=== PATIENT | female | born 1960 | race Caucasian/White ===

== ENCOUNTER 2020-09-10 09:22 | Outpatient (REF) | payer OTHER, SELFPAY ==
--- NOTE | 2020-09-10 09:27 | MM_ITS ---
EXAMINATION: MM SCREENING DIGITAL BREAST TOMOSYNTHESIS, BILATERAL CLINICAL INFORMATION: Screening. Asymptomatic. The lifetime risk of breast cancer based on the Tyrer-Cuzick Model is 7%. COMPARISON: Mammography: 07/08/2019, 06/22/2018 TECHNIQUE: Digital breast tomosynthesis is performed in both the craniocaudal and mediolateral oblique views along with computer-aided detection (CAD). Synthesized 2D images are generated from the tomosynthesis. Additional bilateral exaggerated CC views and bilateral additional MLO views are provided. FINDINGS: The breasts are heterogeneously dense, which may obscure small masses (ACR BI-RADS breast composition Category c). Parenchymal pattern is similar to prior studies. There is no interval mass or architectural abnormality. There are numerous bilateral calcifications demonstrated, greater in number on left, similar to prior exams. The axilla and skin contours are unremarkable. No significant changes. MM/MM tomosynthesis screening BI IMPRESSION: No significant changes from prior studies. ASSESSMENT: BI-RADS 2: Benign RECOMMENDATION: Routine annual mammography screening. This patient's information was entered into a reminder system with a target due date for their next mammogram.
== END 2020-09-10 09:23 | disposition home or self-care (01) ==
LOC: HO.MAMMO 09:22
PROVIDERS: Visit Provider Internal Medicine
DX: Z12.31 Encounter for screening mammogram for malignant neoplasm of breast (principal)
CPT/HCPCS: 77063; 77067

== ENCOUNTER 2020-11-08 07:57 | Inpatient (IN) | payer MEDICARE, OTHER, SELFPAY ==
[2020-11-08] VITALS (19 sets, daily range): BP systolic 91–142; BP diastolic 52–88; PULSE 86–177; RESP 18–22; TEMP 36–36.8; O2SAT 86–94; BMI 21.3
--- NOTE | 2020-11-08 | ECG_ITS ---
Test Reason : rhythm check Blood Pressure : / mmHG Vent. Rate : 160 BPM Atrial Rate : 160 BPM P-R Int : 088 ms QRS Dur : 164 ms QT Int : 316 ms P-R-T Axes : 000 262 208 degrees QTc Int : 515 ms Atrial flutter with 2 to 1 block Non-specific intra-ventricular conduction block Lateral infarct , age undetermined Abnormal ECG When compared to the previous EKG of Atrial flutter with 2 to 1 block has replaced Normal sinus rhythm Referred By: Stepan Mills Electronically Signed By:DAMARIS LIU MD
--- NOTE | ~2020-11-08 | CT_ITS ---
EXAMINATION: CT CHEST WITHOUT CONTRAST CLINICAL INFORMATION: Shortness of breath and cough COMPARISON: Chest CT 8 10/15/2018, chest radiograph 11/09/2020 TECHNIQUE: Multidetector volumetric CT imaging of the chest was done. Axial MIP volume rendering provided. Sagittal and coronal reformatted images were obtained. This CT examination was performed using dose optimization techniques as appropriate, variously including the following: *Automated exposure control *Adjustment of mA and/or kV according to patient size (this includes techniques or standardized protocols for targeted exams where dose is matched to indication/reason for exam; i.e. extremities or head) *Use of iterative reconstruction technique DLP: 140.4 mGy-cm FINDINGS: LUNGS: Upper lobe predominant emphysematous changes of the lungs are again noted with regions of parenchymal distortion which are similar to the prior.. There is circumferential thickening of the medium-sized airways and multiple foci of airways impaction predominantly within the lower lobes associated with regions of volume loss and opacity which most consistent with atelectasis, left greater than right. There are small bilateral pleural effusions, right greater than left. There are additional scattered peripheral somewhat irregular parenchymal opacities which are most suggestive of additional more distal regions of airways impaction/inflammation. MEDIASTINUM: The heart is not enlarged. There is no pericardial effusion or pericardial thickening. The great vessels are nondilated. There are subcentimeter lymph nodes at several mediastinal stations, none enlarged by size criteria. PLEURA: Small bilateral pleural effusions, right greater than left. AXILLA: No lymphadenopathy. UPPER ABDOMEN: The incompletely visualized upper abdomen is unremarkable for any significant abnormality. OSSEOUS STRUCTURES: Subtle compression deformity of the superior endplate of L1 is unchanged from the prior study. There is a minimal pectus excavatum deformity. There is no acute bony abnormality. CT/CT chest wo con IMPRESSION: Bilateral airways thickening with regions of airways impaction, volume loss and opacity which are most suggestive of atelectasis secondary to an airways inflammatory process. There are small bilateral pleural effusions, right greater than left. These findings are superimposed on a background of severe emphysematous changes of the lungs
--- NOTE | ~2020-11-08 | XR_ITS ---
EXAMINATION: XR CHEST CLINICAL INFORMATION: Shortness of breath. COMPARISON: 11/08/2020 TECHNIQUE: Frontal view of the chest was obtained. FINDINGS: Cardiac leads overlie the chest. Diffuse coarsened interstitial opacities are again seen in both lungs, more pronounced at the bases, potentially doing part to emphysema. Trace left pleural effusion. Bibasilar airspace opacities appear unchanged as compared to prior. No pneumothorax. Cardiac and mediastinal contours are unchanged and within normal limits. Lungs remain hyperexpanded. No acute osseous findings. XR/XR chest 1V IMPRESSION: Hyperexpanded, emphysematous lungs with unchanged linear bibasilar opacities that may correspond atelectasis or consolidation. Unchanged trace left pleural effusion.
--- NOTE | ~2020-11-08 | XR_ITS ---
EXAMINATION: XR CHEST CLINICAL INFORMATION: SOB COMPARISON: Chest 10/16/2018 TECHNIQUE: Frontal view of the chest was obtained. FINDINGS: The lungs are hyperinflated with diffuse reticular interstitial patchy opacities throughout both lungs most prominent in the right lower lobe. The heart size and pulmonary vascularity is normal. There is no gross bony abnormality seen. XR/XR chest 1V IMPRESSION: Diffuse increased echo interstitial changes and prominent patchy opacity right lower lobe suggestive of interstitial pneumonitis and likely right lower lobe infiltrate/atelectasis.
--- NOTE | 2020-11-08 08:08 | ECG_ITS ---
Test Reason : SOB Blood Pressure : / mmHG Vent. Rate : 089 BPM Atrial Rate : 089 BPM P-R Int : 136 ms QRS Dur : 094 ms QT Int : 366 ms P-R-T Axes : 079 261 048 degrees QTc Int : 445 ms Sinus rhythm with occasional Premature ventricular complexes Biatrial enlargement Incomplete right bundle branch block Right ventricular hypertrophy with repolarization abnormality Inferior infarct (cited on or before 17-APR-2005) Anterolateral infarct (cited on or before 06-APR-2004) Abnormal ECG When compared with ECG of 20-OCT-2018 08:19, No significant change was found Referred By: Flor Starr Electronically Signed By:DAMARIS LIU MD
[2020-11-08] MEDS: Albuterol Sulfate (0.083%) 2.5 MG/3 ML VIAL.NEB INHALE (08:12)
[2020-11-08] MEDS: Albuterol/Iprat 2.5/0.5MG 3 ML AMPUL.NEB INHALE ×3 (08:12→15:00)
--- NOTE | 2020-11-08 08:15 | ED_ITS ---
HPI - URI/Sore Throat General Chief Complaint: Upper Respiratory Symptoms Stated Complaint: DIFF BREATH,O2SAT 88%3LPM,NO COVID CONCERN PER EMS Time Seen by Provider: 11/08/20 08:08 Source: patient and EMS Mode of arrival: EMS Limitations: no limitations History of Present Illness HPI Narrative: 60-year-old female with history of COPD patient use 2 L of oxygen at nighttime, patient presented with worsening of difficulty breathing for the past 2 days with a history of COPD, no fever, no chills, no history of exposing to sick contact. Patient found by EMS having auto set of 70% on the room air at home, patient was given oxygen and reported improvement for symptoms with oxygen, coughing with yellow sputum. Related Data Previous Rx's Medication Instructions Recorded diltiazem HCl 120 mg 120 mg PO BID 90 Days #180 cap 06/07/20 capsule,extended release 12 hr baclofen 20 mg tablet 20 mg PO BID #180 tab 06/11/20 divalproex 250 mg tablet,delayed 250 mg PO BID #180 tab 09/30/20 release Allergies Allergy/AdvReac Type Severity Reaction Status Date / Time No Known Allergies Allergy Unverified 05/13/20 15:23 Review of Systems Review of Systems: All other systems are reviewed and are negative Constitutional: Reports as per HPI and Reports no additional constitutional complaints Eyes: Reports as per HPI and Reports no additional eye complaints Reports system reviewed and no additional complaints, except as documented Cardiovascular: Reports as per HPI and Reports no additional cardiovascular complaints Respiratory: Reports as per HPI and Reports no additional respiratory complaints Gastrointestinal: Reports as per HPI and Reports no additional gastrointestinal complaints Genitourinary: Reports no additional female genitourinary complaints Musculoskeletal: Reports no additional musculoskeletal complaints Skin/Breast: Reports system reviewed and no additional complaints, except as docu Psychiatric: Reports no additional psychiatric complaints Endocrine: Reports no additional endocrine complaints Hematologic/Lymphatic: Reports no additional hematologic/lymphatic complaints Allergic/Immunologic: Reports no additional allergic/immunologic complaints Reports system reviewed and no additional complaints, except as documented and Reports Abnormal speech present [facility] Social History Social History Alcohol intake: former Smoking Status: Former smoker Use of substances other than those prescribed or required for medical reasons: No Advance Directives: Yes Advance Directives Information Provided: Yes Advance Directives on File: No Physical Exam Vital Signs: Vital Signs: Last Vital Signs Pulse 86 11/08/20 08:13 Resp 22 H 11/08/20 08:03 BP 121/68 11/08/20 08:03 Pulse Ox 92 11/08/20 09:28 Body Mass Index 21.3 Vital signs have been reviewed as appeared to be correct. Blood pressure normal. Heart rate normal. Respiration rate normal. Temperature normal. Oxygen saturation normal. Appearance: Alert. Oriented X3. No acute distress. Head: Normal external exam. Normocephalic. Atraumatic. No Parra signs noted. No raccoon eyes noted Eyes: PERRLA. EOMI. Conjunctiva and sclera normal. Eyelids normal. ENT: TM's Normal. Pharynx normal. Uvula midline. Moist mucous membranes. No trismus noted. No drooling noted. No muffled voice noted. Neck: Normal inspection. Neck supple. FROM. No adenopathy. Thyroid Normal. No meningeal signs. No neck mass noted. CVS: Normal heart rate and rhythm. Heart sound normal. No murmurs noted. Pulses normal throughout. Respiratory: No respiratory distress. Painless inspiration. Breath sounds slightly diminished bilaterally. Diffuse mild expiratory wheezing, no rhonchi noted. Chest nontender. No accessory muscle usage noted or decreased air movement noted. Abdomen: Soft and nontender. Bowel sounds normal in all 4 quadrants. No distention noted. No organomegaly noted. No visible injury noted. Back: No CVA tenderness. Full range of motion noted. Skin: Skin warm and dry. Normal skin color. Normal skin turgor. No rashes/lesions/lacerations noted. Extremities: No lower extremity edema. Extremities exhibit normal range of motion. Extremities nontender. Neuro: Oriented X 3. No motor deficit. No sensory deficit. Reflexes normal. Course Course Course Narrative: Assessment and plan. 60-year-old female history of COPD use supplemental oxygen a home presented with hypoxia and 2 days of dyspnea with you will productive sputum. Patient in the emergency department meet criteria for SIRS and hypoxic without using oxygen patient also found to have right lobe pneumonia will admit for further IV antibiotic. MDM - URI/Sore Throat Lab Data Attestation: I reviewed the patient's lab results. Result diagrams: 11/08/20 08:13 11/08/20 08:13 Labs: Lab Results 11/08/20 11/08/20 11/08/20 Range/Units 08:12 08:13 08:13 WBC 17.8 H (4.8-10.8) X10*3/uL RBC 4.78 (4.20-5.50) X10*6/uL Hgb 15.0 (12.0-16.0) g/dl Hct 45.8 (37-47) % MCV 95.8 (80-98) fL MCH 31.4 (27.0-33.0) pg MCHC 32.8 (31.0-35.0) g/dl RDW 11.9 (11.0-16.0) % Plt Count 374 (160-400) X10*3/uL MPV 10.3 (9.4-12.3) fL Immature Gran % (Auto) 1.0 H (0.0-0.4) % Neut % (Auto) 76.2 H (45-73) % Lymph % (Auto) 8.8 L (20-40) % [place] % (Auto) 13.6 H (2-11) % Eos % (Auto) 0.0 (0-4) % Baso % (Auto) 0.4 (0-2) % Lymph # (Auto) 1.6 (1.2-4.9) X10*3/uL [place] # (Auto) 2.4 H (0.1-1.2) X10*3/uL Eos # (Auto) 0.0 (0.0-0.4) X10*3/uL Baso # (Auto) 0.1 (0.0-0.2) X10*3/uL Abs Immat Gran (auto) 0.17 H (0.00-0.03) X10*3/uL Absolute Neuts (auto) 13.6 H (2.0-8.3) X10*3/uL Absolute Nucleated RBC 0.000 (0.0-0.012) X10*3/uL Nucleated RBC % (auto) 0.0 (0.0-0.2) /100WBC Smear Tech's Comments VERIFIED Sodium 136 (135-145) mmol/L Potassium 4.4 (3.3-5.1) mmol/L Chloride 93 L (96-108) mmol/L Carbon Dioxide 27 (22-29) mmol/L Anion Gap 20 (12-20) BUN 21 H (9-16) mg/dL Creatinine 0.83 (0.5-1.4) mg/dL Estim Creat Clear Calc 66.6 Estimated GFR > 60 Random Glucose 135 H (60-115) mg/dL Lactic Acid 1.5 (0.5-2.0) mmol/L Calcium 9.3 (8.4-10.2) mg/dL Magnesium 2.0 (1.6-2.6) mg/dL Total Bilirubin 0.3 (0.0-1.0) mg/dL Direct Bilirubin 0.2 (0.0-0.5) mg/dL AST 21 (5-31) U/L ALT 33 H (0-31) U/L Alkaline Phosphatase 95 (39-117) U/L Troponin I High Sens (<3.5-17.0) ng/L B-Natriuretic Peptide (<100) pg/mL Total Protein 7.0 (6.5-8.0) g/dL Albumin 4.1 (3.5-5.0) g/dL Lipase 13 (8-78) U/L COVID-19 ([facility]) (Negative) COVID-19 Clin Com 11/08/20 11/08/20 11/08/20 Range/Units 08:13 08:13 08:13 WBC (4.8-10.8) X10*3/uL RBC (4.20-5.50) X10*6/uL Hgb (12.0-16.0) g/dl Hct (37-47) % MCV (80-98) fL MCH (27.0-33.0) pg MCHC (31.0-35.0) g/dl RDW (11.0-16.0) % Plt Count (160-400) X10*3/uL MPV (9.4-12.3) fL Immature Gran % (Auto) (0.0-0.4) % Neut % (Auto) (45-73) % Lymph % (Auto) (20-40) % [place] % (Auto) (2-11) % Eos % (Auto) (0-4) % Baso % (Auto) (0-2) % Lymph # (Auto) (1.2-4.9) X10*3/uL [place] # (Auto) (0.1-1.2) X10*3/uL Eos # (Auto) (0.0-0.4) X10*3/uL Baso # (Auto) (0.0-0.2) X10*3/uL Abs Immat Gran (auto) (0.00-0.03) X10*3/uL Absolute Neuts (auto) (2.0-8.3) X10*3/uL Absolute Nucleated RBC (0.0-0.012) X10*3/uL Nucleated RBC % (auto) (0.0-0.2) /100WBC Smear Tech's Comments Sodium (135-145) mmol/L Potassium (3.3-5.1) mmol/L Chloride (96-108) mmol/L Carbon Dioxide (22-29) mmol/L Anion Gap (12-20) BUN (9-16) mg/dL Creatinine (0.5-1.4) mg/dL Estim Creat Clear Calc Estimated GFR Random Glucose (60-115) mg/dL Lactic Acid (0.5-2.0) mmol/L Calcium (8.4-10.2) mg/dL Magnesium (1.6-2.6) mg/dL Total Bilirubin (0.0-1.0) mg/dL Direct Bilirubin (0.0-0.5) mg/dL AST (5-31) U/L ALT (0-31) U/L Alkaline Phosphatase (39-117) U/L Troponin I High Sens 20.4 H (<3.5-17.0) ng/L B-Natriuretic Peptide 512 H (<100) pg/mL Total Protein (6.5-8.0) g/dL Albumin (3.5-5.0) g/dL Lipase (8-78) U/L COVID-19 ([facility]) Negative (Negative) COVID-19 Clin Com See Note Imaging Data Chest x-ray: Radiologist's impression: Diffuse increased echo interstitial changes and prominent patchy opacity right lower lobe suggestive of interstitial pneumonitis and likely right lower lobe infiltrate/atelectasis. ECG Data Interpretation: Normal sinus rhythm at 89 beats per minutes, with occasional premature ventricular complex, incomplete right bundle-branch block. Discharge Plan Discharge Clinical Impression: Asthma exacerbation in COPD, Pneumonia Patient Disposition: Admitted As Inpatient Prescriptions: No Action diltiazem HCl 120 mg capsule,extended release 12 hr 120 mg PO BID 90 Days Qty: 180 RF: 8 baclofen 20 mg tablet 20 mg PO BID Qty: 180 RF: 8 divalproex 250 mg tablet,delayed release (DR/EC) 250 mg PO BID Qty: 180 RF: 8
[2020-11-08 08:21] LABS: Basophils Absolute Auto 0.1 X10*3/uL (0.0-0.2); Basophils Percent Auto 0.4 % (0-2); Hematocrit 45.8 % (37-47); Imm Gran Abs Auto 0.17 X10*3/uL (0.00-0.03); Lymphocytes Absolute Auto 1.6 X10*3/uL (1.2-4.9); Lymphocytes Percent Auto 8.8 % (20-40); MANUAL DIFF FLAG SCAN; Mean Corpuscular HGB Conc 32.8 g/dl (31.0-35.0); Mean Corpuscular Hemoglobin 31.4 pg (27.0-33.0); Mean Corpuscular Volume 95.8 fL (80-98); Mean Platelet Volume 10.3 fL (9.4-12.3); Monocytes Absolute Auto 2.4 X10*3/uL (0.1-1.2); Monocytes Percent Auto 13.6 % (2-11); Neutrophils Absolute Auto 13.6 X10*3/uL (2.0-8.3); Neutrophils Percent Auto 76.2 % (45-73); Platelet Count 374 X10*3/uL (160-400); Red Blood Count 4.78 X10*6/uL (4.20-5.50); Red Cell Distribution Width 11.9 % (11.0-16.0); SCAN SMEAR FLAG 1; White Blood Count 17.8 X10*3/uL (4.8-10.8)
[2020-11-08 08:35] LABS: COVID-19 Test Negative (Negative)
[2020-11-08 08:36] LABS: Lactic Acid 1.5 mmol/L (0.5-2.0)
[2020-11-08 08:38] LABS: SLIDE REVIEW VERIFIED
[2020-11-08] MEDS: methylPREDNISolone Sod Succ 125 MG/2 ML VIAL IVPUSH (08:39)
[2020-11-08] MEDS: Magnesium Sulfate/H2O 2 GM/50 ML PIGGYBACK IV (08:39)
[2020-11-08 08:42] LABS: Alanine Aminotransferase 33 U/L (0-31); Albumin Level 4.1 g/dL (3.5-5.0); Alkaline Phosphatase 95 U/L (39-117); Anion Gap 20 (12-20); Aspartate Amino Transferase 21 U/L (5-31); Bilirubin Direct 0.2 mg/dL (0.0-0.5); Bilirubin Total 0.3 mg/dL (0.0-1.0); Blood Urea Nitrogen 21 mg/dL (9-16); Calcium 9.3 mg/dL (8.4-10.2); Carbon Dioxide 27 mmol/L (22-29); Chloride 93 mmol/L (96-108); Creatinine Clr Calc Pharmacy 66.6; Estimated Glomerular Filt Rate > 60; Glucose Random 135 mg/dL (60-115); Lipase 13 U/L (8-78); Potassium 4.4 mmol/L (3.3-5.1); Sodium 136 mmol/L (135-145)
[2020-11-08 08:46] LABS: Troponin-I High Sensitivity 20.4 ng/L (<3.5-17.0)
[2020-11-08 09:40] LABS: B Type Natriuretic Peptide 512 pg/mL (<100)
[2020-11-08 10:06] LABS: Glucose Urine UA NEG (NEG); Leukocyte Esterase Urine 2+ (NEG); Nitrite Urine NEG (NEG); PH 5.5 (5.0-8.0); Specific Gravity - Urine 1.025 (1.005-1.025); UACC Culture Trigger YES; Urine Blood NEG (NEG); Urine Ketones 5 MG/DL (NEG); Urine Protein 1+ MG/DL (NEG-TRACE)
[2020-11-08 10:07] LABS: Appearance Urine CLOUDY; Color Urine YELLOW
[2020-11-08 10:21] LABS: Bacteria Urine 1+ /LPF; Renal Epithelial Cells Urine 1+ /LPF; Squamous Epithelial Cell Urine 2+ /LPF; WBC Urine 30-49 /HPF (0-4)
[2020-11-08] MEDS: cefTRIAXone sodium 1 GM in 0.9 % Sodium Chloride 50 ML IV (11:09)
[2020-11-08] MEDS: Azithromycin 500 MG in 0.9 % Sodium Chloride 250 ML 125 MG IV (11:10)
--- NOTE | 2020-11-08 11:47 | P.HPHOSP_ITS ---
History of Present Illness Date of Service: 11/08/20 Chief Complaint: shortness of breath This is a 60 yo F with a PMH of CVA with resultant L syed-plegia, (pt denies any dysphagia), seizures disorder - on depakote, chronic tobacco use (she denies a formal diagnosis of COPD), on 2L O2 at night time who presents to the hospital with complaint of shortness of breath which has been progressive over the last 7 to 10 days, but acutely worsened yesterday She called the paramedics as her symptoms became unbearable. Per ED reports -- patient's O2 saturations when EMS arrived was reportedly 70% on RA . She denies any fevers or chills. She reports using inhalers, but these are not listed on her home meds. She reports no sick contacts. She reports productive cough of greenish sputum. She denies any anginal chest pain or orthpnea. She denies a history of CHF but an Echo from Sep 2018 showed possible diastolic dysfunction. Upon arrival to the ED, patient was noted to be hypoxic with a o2 saturation of 87% on 4L and RR of 22. Her blood work showed an elevated white count with a left shift, elevated High sensitivity trop-I in the indeterminate range, elevated BNP. She was given IV steriods, IV mag, IV antibiotics, inhaled bronchodilators. She continued to remaine tachypneic and hypoxic and admission was requested. Review of Systems Review of Systems: General - denies fevers or chills,+fatigue, weakness HEENT -denies blurred vision, denies headache, denies sore throat Cardiovascular - denies chest pain or palpitations; denies orthopnea Respiratory - +sob; +cough; Gastrointestinal - denies abdominal pain, nausea, vomiting, diarrhea - denies flank pain, denies dysuria, denies frequency or urgency Musculoskeletal - denies back pain, denies hip pain, denies knee pain, denies shoulder pain Neurological - denies any focal weakness or numbness, dysphagia Skin, denies any bruising or redness Psychiatric - denies any suicidal ideation, hallucinations, homicidal ideation Endocrinology - denies intolerance to hot / cold temperatures PMFSH Medical History Chronic respiratory failure CVA (cerebral vascular accident) Seizure Tobacco use Functional capacity: uses cane/walker (cane) Family History (Updated 11/08/20 @ 12:02 by Stepan Mills MD) Mother Colon cancer Surgical History (Updated 11/08/20 @ 12:02 by Stepan Mills MD) History of Social History (Updated 11/08/20 @ 12:04 by Stepan Mills MD) Alcohol intake: never Smoking Status: Current every day smoker Packs Per Day: 1 Use of substances other than those prescribed or required for medical reasons: No Advance Directives: Yes Advance Directives Information Provided: Yes Advance Directives on File: No Meds Allergies Allergy/AdvReac Type Severity Reaction Status Date / Time No Known Allergies Allergy Unverified 05/13/20 15:23 Active Medications: Current Medications Generic Name Dose Route Start Last Admin Trade Name Freq PRN Reason Stop Dose Admin Pharmacy Consult 1 each 11/08/20 10:07 Consult Rx Perform Med Rec MISCELLANE ONCE PRN Consult order Physical Exam Vital Signs and Narrative: Vital Signs: Last Vital Signs Temp 98.2 F 11/08/20 11:29 Pulse 93 11/08/20 11:29 Resp 21 H 11/08/20 11:29 BP 118/52 L 11/08/20 11:29 Pulse Ox 90 L 11/08/20 11:41 Body Mass Index 21.3 Const: Other: Constitutional - Awake and Alert, No apparent distress Eyes - PERRLA, EOMI Cardiovascular - S1S2, RRR, No edema Respiratory - ronchi througout lung corbin most pronunced R lung base; satur ation 87% on 4L; respiratory rate 22 Gastrointestinal - NT / ND; +BS; No rebound or guarding - No CVA tenderness Extremities - no calf tenderness bilaterally, no swelling Musculoskeletal - Normal inspection, normal ROM Skin - Warm/Dry Neurological - Alert & oriented x3, L-hemiplegia Psychological - Appropriate affect Results Labs CBC and Chem 7: 11/08/20 08:13 11/08/20 08:13 Labs: Laboratory Results - last 24 hr 11/08/20 11/08/20 11/08/20 08:12 08:13 08:13 MCV 95.8 MCH 31.4 MCHC 32.8 RDW 11.9 Plt Count 374 MPV 10.3 Immature Gran % (Auto) 1.0 H Neut % (Auto) 76.2 H Lymph % (Auto) 8.8 L [place] % (Auto) 13.6 H Eos % (Auto) 0.0 Baso % (Auto) 0.4 Lymph # (Auto) 1.6 [place] # (Auto) 2.4 H Eos # (Auto) 0.0 Baso # (Auto) 0.1 Abs Immat Gran (auto) 0.17 H Absolute Neuts (auto) 13.6 H Absolute Nucleated RBC 0.000 Nucleated RBC % (auto) 0.0 Smear Tech's Comments VERIFIED Anion Gap 20 Estim Creat Clear Calc 66.6 Estimated GFR > 60 Random Glucose 135 H Lactic Acid 1.5 Calcium 9.3 Magnesium 2.0 Total Bilirubin 0.3 Direct Bilirubin 0.2 AST 21 ALT 33 H Alkaline Phosphatase 95 Troponin I High Sens B-Natriuretic Peptide Total Protein 7.0 Albumin 4.1 Lipase 13 Urine Color Urine Appearance Urine pH Ur Specific [place] Urine Protein Urine Glucose (UA) Urine Ketones Urine Blood Urine Nitrite Ur Leukocyte Esterase Urine RBC Urine WBC Ur Squamous Epith Cells Ur Renal Epithelial Cell Urine Bacteria Epithelial Casts COVID-19 ([facility]) COVID-[employer] 11/08/20 11/08/20 11/08/20 08:13 08:13 08:13 MCV MCH MCHC RDW Plt Count MPV Immature Gran % (Auto) Neut % (Auto) Lymph % (Auto) [place] % (Auto) Eos % (Auto) Baso % (Auto) Lymph # (Auto) [place] # (Auto) Eos # (Auto) Baso # (Auto) Abs Immat Gran (auto) Absolute Neuts (auto) Absolute Nucleated RBC Nucleated RBC % (auto) Smear Tech's Comments Anion Gap Estim Creat Clear Calc Estimated GFR Random Glucose Lactic Acid Calcium Magnesium Total Bilirubin Direct Bilirubin AST ALT Alkaline Phosphatase Troponin I High Sens 20.4 H B-Natriuretic Peptide 512 H Total Protein Albumin Lipase Urine Color Urine Appearance Urine pH Ur Specific [place] Urine Protein Urine Glucose (UA) Urine Ketones Urine Blood Urine Nitrite Ur Leukocyte Esterase Urine RBC Urine WBC Ur Squamous Epith Cells Ur Renal Epithelial Cell Urine Bacteria Epithelial Casts COVID-19 ([facility]) Negative COVID-[employer] See Note 11/08/20 09:37 MCV MCH MCHC RDW Plt Count MPV Immature Gran % (Auto) Neut % (Auto) Lymph % (Auto) [place] % (Auto) Eos % (Auto) Baso % (Auto) Lymph # (Auto) [place] # (Auto) Eos # (Auto) Baso # (Auto) Abs Immat Gran (auto) Absolute Neuts (auto) Absolute Nucleated RBC Nucleated RBC % (auto) Smear Tech's Comments Anion Gap Estim Creat Clear Calc Estimated GFR Random Glucose Lactic Acid Calcium Magnesium Total Bilirubin Direct Bilirubin AST ALT Alkaline Phosphatase Troponin I High Sens B-Natriuretic Peptide Total Protein Albumin Lipase Urine Color YELLOW Urine Appearance CLOUDY Urine pH 5.5 Ur Specific [place] 1.025 Urine Protein 1+ H Urine Glucose (UA) NEG Urine Ketones 5 Urine Blood NEG Urine Nitrite NEG Ur Leukocyte Esterase 2+ H Urine RBC 1-4 Urine WBC 30-49 H Ur Squamous Epith Cells 2+ Ur Renal Epithelial Cell 1+ Urine Bacteria 1+ Epithelial Casts 5-9 COVID-19 ([facility]) COVID-19 Clin Com Imaging Radiologist's Impressions: Impressions Chest X-Ray 11/08/20 08:08 IMPRESSION: Diffuse increased echo interstitial changes and prominent patchy opacity right lower lobe suggestive of interstitial pneumonitis and likely right lower lobe infiltrate/atelectasis. Assessment and Plan (1) Sepsis: Status: Acute This is a 60 yo F with a PMH of CVA with resultant L hemiplegia, active tobacco use (but denies formal COPD diagnosis), seizure disorder on depakote who presents to the hospital with progressive SOB and cough over the last 7-10 days and is now being admitted for sepsis and acute respiratory failure with hyopxia secondary to COPD(undiagnosed) / pneumonia, possibly CHF as well. 1. Sepsis secondary to pneumonia / COPD + acute respiratory failure with hypoxia Meets sepsis criteria with tachypnea, leukocytosis+bandemia, tachycardia see details below follow blood cultures continue O2 to maintain saturations 90% no severe features at this time 2. Acute COPD exacerbation / Pneumonia suspect give her history of tobacco use, she has undiagnosed COPD continue IV steroids and scheduled updrafts empiric Rocephin + Doxy; additionally given her history of prior CVA-- will get speech evaluation to see if she has any concerns over aspiration 3. Elevated BNP, elevated trop-I Last Echo in 2018 showed possible diastolic dysfunction will repeat check trend trop-I; no chest pain or acute changes on EKG to suggest ACS; will get cardiology input if needed. 4. History of CVA doesnt appear to be on asa + statin will check fasting lipids tomorrow AM 5. History of seizures continue Depakote Full Code DVT pptx, Lovenox Reports her sister is HCP
[2020-11-08] MEDS: Furosemide 20 MG/2 ML VIAL IVPUSH (12:13)
--- NOTE | 2020-11-08 12:47 | PC.NURSE ---
Pt asking to be switched back to nasal cannula- 4L at 89-90 at this time. RR even and unlabored, speaks in clear and full sentences.
--- NOTE | 2020-11-08 12:53 | PC.NURSE ---
Attempted to call report to [facility]. Awaiting callback.
--- NOTE | 2020-11-08 13:21 | PC.NURSE ---
Attempted to call [facility] again for report.
--- NOTE | 2020-11-08 13:45 | PC.NURSE ---
Report called to [facility].
[2020-11-08] MEDS: Nicotine 14 MG PATCH.TD24 TRANSDERMA (14:39)
[2020-11-08] MEDS: dilTIAZem HCL CD 120 MG CAP.ER.DEG PO (15:42)
[2020-11-08] MEDS: Enoxaparin Sodium 40 MG/0.4 ML SYRINGE SUBCUT (15:43)
[2020-11-08] MEDS: 0.9 % Sodium Chloride Flush 3 ML SYRINGE IVFLUSH (15:44)
[2020-11-08] MEDS: dilTIAZem HCL 50 MG/10 ML VIAL 10 MG IVPUSH (16:41)
[2020-11-08] MEDS: Metoprolol Tartrate 5 MG/5 ML VIAL 2.5 MG IVPUSH (16:59)
[2020-11-08] MEDS: dilTIAZem HCL 125 MG in 0.9 % Sodium Chloride 100 ML IVCONT (17:39)
[2020-11-08] MEDS: Enoxaparin Sodium 60 MG/0.6 ML SYRINGE 50 MG SUBCUT (17:39)
[2020-11-08] MEDS: methylPREDNISolone Sod Succ 40 MG/ML VIAL IVPUSH (20:51)
[2020-11-08] MEDS: Doxycycline Hyclate 100 MG in 0.9 % Sodium Chloride 250 ML 166.67 MG IV (20:51)
[2020-11-08] MEDS: Divalproex Sodium 250 MG TABLET.DR PO (20:51)
[2020-11-08] MEDS: Baclofen 20 MG TABLET PO (20:51)
[2020-11-08] MEDS: Ipratropium Bromide 0.5 MG/2.5 ML SOLUTION INHALE (21:04)
--- NOTE | 2020-11-08 22:14 | PC.NURSE ---
Approx 1500 pt tachy 150's-190's, previously NSR in 90's. BP WNL, pt asymptomatic, denied chest pain, palpitations, SOB. MD to bedside, attempted PO cardizem, IVP cardizem and IVP metoprolol with minimal effect. Started Cardizem gtt, titrated to max dose with minimal effect. EKG showing sinus tach. Per MD, continue gtt while monitoring for decreased BP and any new symptoms. Plan for Cardiology consult tomorrow.
[2020-11-09] VITALS (14 sets, daily range): BP systolic 94–156; BP diastolic 57–98; PULSE 54–157; RESP 18–24; TEMP 36.4–37; O2SAT 85–93
--- NOTE | 2020-11-09 | ECG_ITS ---
Test Reason : CP Blood Pressure : / mmHG Vent. Rate : 076 BPM Atrial Rate : 076 BPM P-R Int : 132 ms QRS Dur : 096 ms QT Int : 350 ms P-R-T Axes : 028 262 067 degrees QTc Int : 393 ms Sinus rhythm with Premature atrial complexes Low voltage QRS Inferior infarct (cited on or before 09-NOV-2020) Anterolateral infarct (cited on or before 09-NOV-2020) Abnormal ECG When compared with ECG of 09-NOV-2020 17:58, Normal sinus rhythm has replaced atrial flutter Questionable change in initial forces of Septal leads Questionable change in initial forces of Lateral leads ST no longer depressed in Anterior leads Nonspecific T wave abnormality no longer evident in Lateral leads Referred By: Stepan Mills Electronically Signed By:DAMARIS LIU MD
[2020-11-09] MEDS: 0.9 % Sodium Chloride Flush 3 ML SYRINGE IVFLUSH ×4 (00:18→16:56)
[2020-11-09] MEDS: diphenhydrAMINE HCL 25 MG TABLET PO ×2 (00:18→21:57)
[2020-11-09] MEDS: dilTIAZem HCL 125 MG in 0.9 % Sodium Chloride 100 ML 15 MG IVCONT ×2 (00:52→10:43)
--- NOTE | 2020-11-09 05:30 | MHC.PIE ---
P.RAPID A FLUTTER,DECREASED SATS I.PT HR NOTED TO INCREASE TO 160.O2 SATS 87% ON 10L [place] CANNULA.O2 INCREASED TO 15L BY RESP WITH NO IMPROVEMENT IN SATS.BP 101/64.CARDIZEM DRIP CONTINUES AT 15MG/HR. UPDATED. ORDERED STAT ABG'S,BNP,PORT CXR,LOPRESSOR 5MG IV,LOVENOX 60MG,SOLUMEDROL 40MG IV Q 6HRS.PT UPDATED AND MEDS GIVEN. IMPROVEMENT TO HR AFTER LOPRESSOR TO 90'S,A FLUTTER,BP 94/59.BAUDILIO VORA UPDATED.ORDER FOR ECHO IN AM.O2 SATS REMAIN 87%. ORDERED VENTIMASK.55% VENTIMASK APPLIED BY RESP. WITH ONLY SL IMPROVEMENT TO SATS. UPDATED AND PLACED PULMONOLOGY CONSULT. E.CONT TO ASSESS AND MONITOR.NEXT SHIFT UPDATED.
--- NOTE | 2020-11-09 05:41 | PM.EVENT ---
Event Note Date of Service: 11/09/20 Event Note: Hypoxia: Patient had increased oxygen requirements; oxygen supplementation has been increased to 15 L. Patient has coarse breath sounds and crackles at the bases. Will obtain a proBNP and chest x-ray Will empirically continue Lovenox 1 mg/kg b.i.d. Will also obtain ABG. Pulmonary consult Asthma/COPD: Will increase the dose of Solu-Medrol to 40 mg q.i.d.. Levalbuterol p.r.n.. Spoke to the RN for goal oxygen saturation between 89-93% AFib with RVR: Patient continued to be in rapid ventricular response with heart rate in 150s to 160s. Maxed out on the diltiazem drip. Will give a dose of metoprolol IV x1. Heart rate improved better with metoprolol.
[2020-11-09] MEDS: Enoxaparin Sodium 60 MG/0.6 ML SYRINGE SUBCUT ×2 (06:09→16:55)
[2020-11-09] MEDS: methylPREDNISolone Sod Succ 40 MG/ML VIAL IVPUSH ×4 (06:11→21:54)
[2020-11-09 06:13] LABS: MANUAL DIFF FLAG NO
[2020-11-09] MEDS: Metoprolol Tartrate 5 MG/5 ML VIAL IVPUSH (06:15)
[2020-11-09 06:16] LABS: Basophils Percent Auto 0.2 % (0-2); Hematocrit 44.7 % (37-47); Hemoglobin 14.3 g/dl (12.0-16.0); Imm Gran Abs Auto 0.35 X10*3/uL (0.00-0.03); Imm Gran Pct Auto 2.1 % (0.0-0.4); Lymphocytes Absolute Auto 1.1 X10*3/uL (1.2-4.9); Lymphocytes Percent Auto 6.7 % (20-40); Mean Corpuscular Hemoglobin 31.1 pg (27.0-33.0); Mean Corpuscular Volume 97.2 fL (80-98); Mean Platelet Volume 10.5 fL (9.4-12.3); Monocytes Absolute Auto 0.7 X10*3/uL (0.1-1.2); Monocytes Percent Auto 4.3 % (2-11); NRBC Pct Auto 0.1 /100WBC (0.0-0.2); Neutrophils Absolute Auto 14.7 X10*3/uL (2.0-8.3); Neutrophils Percent Auto 86.7 % (45-73); Platelet Count 395 X10*3/uL (160-400); Red Cell Distribution Width 11.9 % (11.0-16.0)
[2020-11-09 06:19] LABS: ABG Base Excess -0.3 mmol/L; ABG HCO3 26 mmol/L (22-26); ABG pCO2 48 mmHg (32-45); ABG pH 7.34 (7.35-7.45); ABG pO2 60 mmHg (83-108)
[2020-11-09 06:19] LABS: ABG Refer to POC result
--- NOTE | 2020-11-09 06:54 | ECG_ITS ---
Test Reason : TACHYCARDIA Blood Pressure : / mmHG Vent. Rate : 085 BPM Atrial Rate : 340 BPM P-R Int : 000 ms QRS Dur : 092 ms QT Int : 434 ms P-R-T Axes : 085 262 -34 degrees QTc Int : 516 ms Atrial flutter with 4:1 A-V conduction Incomplete right bundle branch block Possible Right ventricular hypertrophy Anterolateral infarct (cited on or before 06-APR-2004) Abnormal ECG When compared with ECG of 08-NOV-2020 15:51, Vent. rate has decreased Vent. rate has decreased BY 75 BPM Incomplete right bundle branch block has replaced Non-specific intra-ventricular conduction block Questionable change in initial forces of Lateral leads Referred By: Stepan Mills Electronically Signed By:DAMARIS LIU MD
[2020-11-09 07:01] LABS: Anion Gap 18 (12-20); Blood Urea Nitrogen 32 mg/dL (9-16); Carbon Dioxide 29 mmol/L (22-29); Chloride 93 mmol/L (96-108); Creatinine Clr Calc Pharmacy 68.3; Estimated Glomerular Filt Rate > 60; Glucose Random 137 mg/dL (60-115); Potassium 4.5 mmol/L (3.3-5.1); Sodium 135 mmol/L (135-145)
[2020-11-09 07:14] LABS: B Type Natriuretic Peptide 637 pg/mL (<100)
[2020-11-09] MEDS: Ipratropium Bromide 0.5 MG/2.5 ML SOLUTION INHALE ×4 (07:39→19:34)
--- NOTE | 2020-11-09 08:30 | CA_ITS ---
Transthoracic Echocardiogram Patient (Last, First, Middle): Ruby Mahan M Gender: Female Date of : 1960 Age: 60 Procedure Date: 11/09/2020 Procedure Type: Transthoracic Echocardiogram Location: [facility] [place] Height: 167.64 cm Weight: 59.88 kg BSA: 1.68 m2 Heart Rate: bpm BP: 101 / 64 mmHg [place]: Referring MD: Stepan Mills MD Art Psychotherapist: Eduardo Haro MD Symptoms: elevated bnp, new onset a. fib, eval LVEF Study Quality: Technically Difficult due to chest shape ECG Rhythm: Atrial flutter Conclusions: - 1. Technically extremely limited study with off axis views 2. Limited evaluation of left ventricle with possibly preserved LVEF of greater than 50% 3. RV significantly enlarged 4. Limited evaluation of cardiac valvular Doppler within normal limits 5. RV systolic pressure is not adequately calculated Findings Left Ventricle The left ventricle was not well visualized. Normal left ventricular cavity size. Regional wall motion abnormalities can not be excluded due to suboptimal endocardial definition. There is a flattened septum in systole consistent with right ventricular pressure overload. Diastolic function is indeterminate on the basis of available data. Left ventricular systolic function appears preserved with LVEF of greater than 50% Right Ventricle Severely increased right ventricular cavity size. Atria The left atrium was not well visualized. Interatrial shunt cannot be excluded. The right atrium was not well visualized. Aortic Valve The aortic valve was not well visualized. There is no aortic valve regurgitation. Mitral Valve The mitral valve was not well visualized. There is trace mitral valve regurgitation. There is no mitral valve stenosis. Pulmonic Valve The pulmonic valve was not well visualized. Tricuspid Valve The tricuspid valve was not well visualized. Tricuspid regurgitation envelope is inadequate for calculation of right ventricular systolic pressure. Great Vessels The aorta was not well visualized. The pulmonary artery was not well visualized. Venous The inferior vena cava is normal in size and collapses less than 50% with inspiration. Pericardium/Pleural The pericardium was not well visualized. Prior Study Comparison Technically very limited study and comparison is difficult to do Measurements 2D Linear Measurements IVSd: 0.75 0.6-0.9/0.6-1.0 cm LVIDd: 3.38 3.9-5.3/4.2-5.9 cm LVIDd Index: 2.01 2.4-3.2/2.2-3.1 cm/m2 LVIDs: 2.20 2.0-3.6 cm LVPWd: 0.71 0.7-1.1 cm LA Diam: 4.50 2.7-3.8/3.0-4.0 cm LAIDs Index: 2.68 1.5-2.3 cm/m2 LV Mass: 77.76 67-162/88-224 g LV Mass Index: 46.28 43-95/49-115 g/m2 LVOT Diam: 1.90 3.0+(-)1.3 cm Mitral Valve MV Pk E: 0.93 MV Decel Time: 85.00 E'Medial: 5.80 E/E' Med: 16.00 PHT: 25.00 MVA PHT: 8.80 Decel Millard: 10.96 Aortic Valve AoV Pk Matthew: 1.13 AoV Mn Matthew: 0.72 AoV VTI: 0.18 AoV Pk Grad: 5.00 Aov Mn Grad: 3.00 MOMO Cont.VTI: 1.40 LVOT LVOT Pk Matthew: 0.64 LVOT Mn Matthew: 0.36 LVOT VTI: 0.09 LVOT Pk Grad: 2.00 LVOT Mn Grad: 1.00 LVOT Diam: 1.90 LVOT Area: 2.84 Diastolic Function MV Pk E: 0.93 E'Medial: 5.80 E/E' Med: 16.00 Tricuspid Valve TR Pk Matthew: 2.63 TR Pk Grad: 28.00 RA Press: 3.00 Pulmonary Valve PV Pk Matthew: 0.79 Peak PV Grad: 2.00 Updated in Other Vendor System with Status of Final Eduardo Haro MD electronically signed on 11/09/2020 5:03:53 PM with status of Final
[2020-11-09] MEDS: Baclofen 20 MG TABLET PO ×2 (08:36→21:55)
[2020-11-09] MEDS: Divalproex Sodium 250 MG TABLET.DR PO ×2 (08:36→21:55)
[2020-11-09] MEDS: Nicotine 14 MG PATCH.TD24 TRANSDERMA (08:36)
[2020-11-09] MEDS: Doxycycline Hyclate 100 MG in 0.9 % Sodium Chloride 250 ML 166.7 MG IV (08:52)
[2020-11-09] MEDS: Furosemide 20 MG/2 ML VIAL IVPUSH ×2 (08:59→21:55)
--- NOTE | 2020-11-09 09:44 | P.PNIM_ITS ---
Subjective Subjective Date of Service: 11/09/20 Interval History: seen and examined this AM feels the same denies chest pain reports cough ROS General - no fevers or chills Cardiovascular - no chest pain Respiratory - +sob, +cough Abdominal- no abdominal pain, nausea, vomiting, diarrhea Physical Exam Vital Signs: Vital Signs: Last Vital Signs Temp 98.6 F 11/09/20 05:04 Pulse 131 H 11/09/20 08:56 Resp 24 H 11/09/20 08:56 BP 94/59 L 11/09/20 06:45 Pulse Ox 85 L 11/09/20 08:56 Body Mass Index 21.3 Const: Other: Constitutional - Awake and Alert, No apparent distress Eyes - PERRLA, EOMI Cardiovascular - S1S2, RRR, No edema Respiratory - rhonchi/rales bilateral bases; saturations mid to high 80s on NC Gastrointestinal - NT / ND; +BS; No rebound or guarding - No CVA tenderness Extremities - no calf tenderness bilaterally, no swelling Musculoskeletal - Normal inspection, normal ROM Skin - Warm/Dry Neurological - Alert & oriented x3, L-hemiplegia Psychological - Appropriate affect Objective Data Current Medications Generic Name Dose Route Start Last Admin Trade Name Freq PRN Reason Stop Dose Admin Acetaminophen 650 mg 11/08/20 14:25 Acetaminophen 325 Mg Tablet PO Q6H PRN Pain, Mild (Pain Scale 1-3) Baclofen 20 mg 11/08/20 21:00 11/09/20 08:36 Baclofen 20 Mg Tablet PO 20 mg BID VIANEY Administration Diphenhydramine HCl 25 mg 11/08/20 23:39 11/09/20 00:18 Diphenhydramine Hcl 25 Mg Tablet PO 25 mg BEDTIME PRN Administration Insomnia Divalproex Sodium 250 mg 11/08/20 21:00 11/09/20 08:36 Divalproex Sodium 250 Mg Tablet.Dr PO 250 mg BID VIANEY Administration Enoxaparin Sodium 60 mg 11/09/20 06:00 11/09/20 06:09 Enoxaparin Sodium 60 Mg/0.6 Ml Syringe 1 mg/kg (60 mg) 60 mg SUBCUT Administration Q12H [facility] Furosemide 20 mg 11/09/20 08:30 11/09/20 08:59 Furosemide 20 Mg/2 Ml Vial IVPUSH 20 mg Q12H VIANEY Administration Protocol Guaifenesin/Codeine Phosphate 5 ml 11/09/20 06:32 Guaifen/Codeine Sf 200/20/10ml 10 Ml Liquid PO Q4H PRN Cough Ceftriaxone Sodium 1 gm/ 50 mls @ 100 mls/hr 11/09/20 09:00 Sodium Chloride IV Q24H VIANEY Doxycycline Hyclate 100 mg/ 250 mls @ 166.67 mls/hr 11/08/20 21:00 11/09/20 08:52 Sodium Chloride IV 166.7 mls/hr Q12H VIANEY Administration Diltiazem HCl 125 mg/ Sodium 125 mls @ 0 mls/hr 11/08/20 17:00 11/09/20 08:56 Chloride IVCONT 15 mg/hr .Q0M VIANEY 15 mls/hr Titration Protocol Per Protocol Ipratropium [place] 0.5 mg 11/08/20 16:00 11/09/20 07:39 Ipratropium [place] 0.5 Mg/2.5 Ml Solution INHALE 0.5 mg RQ4H WHILE AWAKE VIANEY Administration Levalbuterol HCl 1.25 mg 11/08/20 16:00 11/09/20 07:40 Levalbuterol Hcl 1.25 Mg/0.5 Ml Vial.Neb INHALE 1.25 mg RQ4H WHILE AWAKE VIANEY Administration Levalbuterol HCl 1.25 mg 11/09/20 05:37 Levalbuterol Hcl 1.25 Mg/0.5 Ml Vial.Neb INHALE Q3H PRN Shortness of Breath/Wheezing Methylprednisolone Sodium Succinate 40 mg 11/09/20 05:45 11/09/20 06:11 Methylprednisolone Sod Succ 40 Mg/Ml Vial IVPUSH 40 mg Q6H VIANEY Administration Nicotine 14 mg 11/08/20 14:30 11/09/20 08:36 Nicotine 14 Mg Patch.Td24 TRANSDERMA 14 mg DAILY VIANEY Administration Pharmacy Consult 1 each 11/08/20 10:07 Consult Rx Perform Med Rec MISCELLANE ONCE PRN Consult order Sodium Chloride 3 ml 11/08/20 16:00 11/09/20 08:54 0.9 % Sodium Chloride Flush 3 Ml Syringe IVFLUSH 3 ml QSHIFT VIANEY Administration Labs CBC & Chem 7: 11/09/20 05:32 11/09/20 05:32 Assessment and Plan (1) Sepsis: Status: Acute Assessment and Plan: This is a 60 yo F with a PMH of CVA with resultant L hemiplegia, active tobacco use (but denies formal COPD diagnosis), seizure disorder on depakote who presents to the hospital with progressive SOB and cough over the last 7-10 days and is now being admitted for sepsis and acute respiratory failure with hyopxia secondary to COPD(undiagnosed) / pneumonia, possibly CHF as well. 1. Sepsis secondary to pneumonia / COPD + acute respiratory failure with hypoxia + chronic resp failure with O2 2L at n ight O2 requirements remain high, continue oxygen with O2 goals 88-92 continue with Rocephin/Doxy - day #2 2. Acute COPD exacerbation / Pneumonia suspect give her history of tobacco use, she has undiagnosed COPD continue IV steroids and scheduled updrafts 3. A. Fib/flutter with RVR on max cardizem Gtt with rates still uncontrolled will give digoxin load 0.25mg q6 hours x 3 cardiology consulted continue lovenox 1mg/kg - suspect she will need OAC with CHADSVASC of at least 5 4. Acute CHF diastolic vs systolic vs RHF echo today IV lasix 20mg BID 5. History of CVA lipid panel today hold asa in light of start anticoagulation 5. History of seizures continue Depakote 6. Tobacco use Disorder NRT with patch cessation as been strongly encouraged Full Code DVT pptx, Pan Reports her sister is HCP
--- NOTE | 2020-11-09 09:53 | PM.CNCAR ---
History of Present Illness History of Present Illness Date of Service: 11/09/20 Requesting physician: Stepan Mills Consult reason: shortness of breath and other (Atrial flutter) Chief complaint: COPD / Pneumonia Narrative: Thank you for asking us to consult on Ruby for atrial flutter with rapid ventricular response. Patient has advanced COPD and unfortunately continues to smoke, she has chronic respiratory failure with hypoxia using nocturnal oxygen at home. Patient says she started having increased cough with no change in her sputum color and then got progressively short of breath over time and yesterday morning she could not breathe and therefore decided to come to the emergency room. In the emergency room she was noted to have interstitial pneumonitis and possible pneumonia in the right lung, EKG showed tachycardia, EKG consistent with atrial flutter with 2 is to 1 conduction initially. Subsequently with rate slowing atrial flutter is confirmed. She remains difficult to control. She remains hypoxic despite oxygen supplementation and is significantly bronchospastic. She is on maximal, IV Cardizem drip. She is currently not having any cardiac symptoms of palpitations or chest pain. No lightheadedness, syncope. Remains short of breath. Review of Systems Constitutional: Constitutional: Reports no additional constitutional complaints Cardiovascular: Cardiovascular: Denies chest pain, Denies lightheadedness, Denies Loss of Consciousness, Denies palpitations and Reports dyspnea Respiratory: Respiratory: Reports cough, Reports excessive phlegm production and Reports dyspnea Gastrointestinal: Gastrointestinal: Reports no additional gastrointestinal complaints Genitourinary: Genitourinary: Reports no additional female genitourinary complaints Musculoskeletal: Musculoskeletal: Reports no additional musculoskeletal complaints Integumentary/Breasts: Skin/Breast: Reports system reviewed and no additional complaints, except as docu Neurologic: Reports system reviewed and no additional complaints, except as documented Psychiatric: Psychiatric: Reports no additional psychiatric complaints Endocrine: Endocrine: Reports no additional endocrine complaints and Denies palpitations Hematologic/Lymphatic: Hematologic/Lymphatic: Reports no additional hematologic/lymphatic complaints PMFSH Past Medical History Medical History Chronic respiratory failure CVA (cerebral vascular accident) Seizure Tobacco use Functional capacity: uses cane/walker (cane) Family History Family History Mother Colon cancer Surgical History Surgical History History of Social History Social History Household Members: None Housing: Apartment Do you presently have visiting nurse or other home services: No Alcohol intake: never Smoking Status: Current every day smoker Tobacco Type: Cigarette Packs Per Day: 0.5 Cigarettes Per Day: 10.0 Years Smoked: 46 Smoked in Last 30 Days: Yes Patient Interested in Nicotine Replacement: Yes Patient Given Instructions on How to Stop Smoking: Yes Date Education Initiated: 11/08/20 Second Hand Smoke Exposure: Yes Use of substances other than those prescribed or required for medical reasons: No Currently Displaying Signs/Symptoms of Drug Intoxication Withdrawal: No Have you been hit, kicked, punched, or otherwise hurt by someone within the past year? If so, by whom?: No Do you feel safe in your current relationship?: No Current Relationship Is there a partner from a previous relationship who is making you feel unsafe now?: No Are you made to feel afraid or neglected: No Advance Directives: Yes Advance Directives Information Provided: Yes Advance Directives on File: No Advance Directives Date on File: 11/08/20 Do you have thoughts of harming others: None Do you have a plan to hurt others: No Plan Recently lost weight without trying: No Meds Allergies Allergy/AdvReac Type Severity Reaction Status Date / Time No Known Allergies Allergy Unverified 05/13/20 15:23 Active Medications: Current Medications Generic Name Dose Route Start Last Admin Trade Name Freq PRN Reason Stop Dose Admin Acetaminophen 650 mg 11/08/20 14:25 Acetaminophen 325 Mg Tablet PO Q6H PRN Pain, Mild (Pain Scale 1-3) Baclofen 20 mg 11/08/20 21:00 11/09/20 08:36 Baclofen 20 Mg Tablet PO 20 mg BID VIANEY Administration Digoxin 0.25 mg 11/09/20 09:45 Digoxin 0.5 Mg/2 Ml Ampul IVPUSH 11/09/20 21:46 Q6H VIANEY Diphenhydramine HCl 25 mg 11/08/20 23:39 11/09/20 00:18 Diphenhydramine Hcl 25 Mg Tablet PO 25 mg BEDTIME PRN Administration Insomnia Divalproex Sodium 250 mg 11/08/20 21:00 11/09/20 08:36 Divalproex Sodium 250 Mg Tablet.Dr PO 250 mg BID VIANEY Administration Enoxaparin Sodium 60 mg 11/09/20 06:00 11/09/20 06:09 Enoxaparin Sodium 60 Mg/0.6 Ml Syringe 1 mg/kg (60 mg) 60 mg SUBCUT Administration Q12H VIANEY Furosemide 20 mg 11/09/20 08:30 11/09/20 08:59 Furosemide 20 Mg/2 Ml Vial IVPUSH 20 mg Q12H VIANEY Administration Protocol Guaifenesin/Codeine Phosphate 5 ml 11/09/20 06:32 Guaifen/Codeine Sf 200/20/10ml 10 Ml Liquid PO Q4H PRN Cough Ceftriaxone Sodium 1 gm/ 50 mls @ 100 mls/hr 11/09/20 09:00 Sodium Chloride IV Q24H VIANEY Doxycycline Hyclate 100 mg/ 250 mls @ 166.67 mls/hr 11/08/20 21:00 11/09/20 08:52 Sodium Chloride IV 166.7 mls/hr Q12H VIANEY Administration Diltiazem HCl 125 mg/ Sodium 125 mls @ 0 mls/hr 11/08/20 17:00 11/09/20 08:56 Chloride IVCONT 15 mg/hr .Q0M VIANEY 15 mls/hr Titration Protocol Per Protocol Ipratropium [place] 0.5 mg 11/08/20 16:00 11/09/20 07:39 Ipratropium [place] 0.5 Mg/2.5 Ml Solution INHALE 0.5 mg RQ4H WHILE AWAKE VIANEY Administration Levalbuterol HCl 1.25 mg 11/08/20 16:00 11/09/20 07:40 Levalbuterol Hcl 1.25 Mg/0.5 Ml Vial.Neb INHALE 1.25 mg RQ4H WHILE AWAKE VIANEY Administration Levalbuterol HCl 1.25 mg 11/09/20 05:37 Levalbuterol Hcl 1.25 Mg/0.5 Ml Vial.Neb INHALE Q3H PRN Shortness of Breath/Wheezing Methylprednisolone Sodium Succinate 40 mg 11/09/20 05:45 11/09/20 06:11 Methylprednisolone Sod Succ 40 Mg/Ml Vial IVPUSH 40 mg Q6H VIANEY Administration Nicotine 14 mg 11/08/20 14:30 11/09/20 08:36 Nicotine 14 Mg Patch.Td24 TRANSDERMA 14 mg DAILY VIANEY Administration Pharmacy Consult 1 each 11/08/20 10:07 Consult Rx Perform Med Rec MISCELLANE ONCE PRN Consult order Sodium Chloride 3 ml 11/08/20 16:00 11/09/20 08:54 0.9 % Sodium Chloride Flush 3 Ml Syringe IVFLUSH 3 ml QSHIFT VIANEY Administration Physical Exam Vital Signs: Vital Signs: Last Vital Signs Temp 98.6 F 11/09/20 05:04 Pulse 131 H 11/09/20 08:56 Resp 24 H 11/09/20 08:56 BP 94/59 L 11/09/20 06:45 Pulse Ox 85 L 11/09/20 08:56 Body Mass Index 21.3 Const: General: cooperative, comfortable and acute distress moderate and respiratory Nutritional Appearance: cachectic and underweight Orientation/consciousness: patient oriented x3 HENMT: Head: Yes normocephalic and Yes atraumatic Neck: Neck: Yes trachea midline, Yes supple and Yes no JVD Chest: Chest palpation & inspection: normal inspection of the chest Resp: Effort & Inspection: pursed lip breathing, respiratory distress and tachypneic Auscultation: crackles (Coarse) bilateral, wheezes and diminished lung sounds Cardio: Jugular venous distension: no JVD Rate: tachycardic Rhythm: abnormal rhythm irregularly irregular Heart sounds: S1 normal heart sound present and S2 normal heart sound present GI: Auscultation: normal bowel sounds Skin: General skin exam: no rashes or lesions noted and ecchymosis Neuro: General: patient oriented x3 Extrem: General: Yes no clubbing, cyanosis or edema Psych: Appearance: grossly normal Results Labs and Meds Result diagrams: 11/09/20 05:32 11/09/20 05:32 Lab results: Laboratory Results - last 24 hr 11/08/20 11/08/20 11/09/20 09:37 11:35 05:32 WBC 17.0 H RBC 4.60 Hgb 14.3 Hct 44.7 MCV 97.2 MCH 31.1 MCHC 32.0 RDW 11.9 Plt Count 395 MPV 10.5 Immature Gran % (Auto) 2.1 H Neut % (Auto) 86.7 H Lymph % (Auto) 6.7 L [place] % (Auto) 4.3 Eos % (Auto) 0.0 Baso % (Auto) 0.2 Lymph # (Auto) 1.1 L [place] # (Auto) 0.7 Eos # (Auto) 0.0 Baso # (Auto) 0.0 Abs Immat Gran (auto) 0.35 H Absolute Neuts (auto) 14.7 H Absolute Nucleated RBC 0.020 H Nucleated RBC % (auto) 0.1 O2 Saturation ABG pH at Pt Temp ABG pCO2 at Pt Temp ABG pO2 at Pt Temp ABG HCO3 ABG Base Excess (Actual) Sodium Potassium Chloride Carbon Dioxide Anion Gap BUN Creatinine Estim Creat Clear Calc Estimated GFR Random Glucose Calcium Troponin I High Sens 16.0 B-Natriuretic Peptide NT-Pro-B Natriuret Pep Urine Color YELLOW Urine Appearance CLOUDY Urine pH 5.5 Ur Specific [place] 1.025 Urine Protein 1+ H Urine Glucose (UA) NEG Urine Ketones 5 Urine Blood NEG Urine Nitrite NEG Ur Leukocyte Esterase 2+ H Urine RBC 1-4 Urine WBC 30-49 H Ur Squamous Epith Cells 2+ Ur Renal Epithelial Cell 1+ Urine Bacteria 1+ Epithelial Casts 5-9 11/09/20 11/09/20 11/09/20 05:32 05:32 05:32 WBC RBC Hgb Hct MCV MCH MCHC RDW Plt Count MPV Immature Gran % (Auto) Neut % (Auto) Lymph % (Auto) [place] % (Auto) Eos % (Auto) Baso % (Auto) Lymph # (Auto) [place] # (Auto) Eos # (Auto) Baso # (Auto) Abs Immat Gran (auto) Absolute Neuts (auto) Absolute Nucleated RBC Nucleated RBC % (auto) O2 Saturation ABG pH at Pt Temp ABG pCO2 at Pt Temp ABG pO2 at Pt Temp ABG HCO3 ABG Base Excess (Actual) Sodium 135 Potassium 4.5 Chloride 93 L Carbon Dioxide 29 Anion Gap 18 BUN 32 H D Creatinine 0.81 Estim Creat Clear Calc 68.3 Estimated GFR > 60 Random Glucose 137 H Calcium 9.0 Troponin I High Sens B-Natriuretic Peptide 637 H NT-Pro-B Natriuret Pep Cancelled Urine Color Urine Appearance Urine pH Ur Specific [place] Urine Protein Urine Glucose (UA) Urine Ketones Urine Blood Urine Nitrite Ur Leukocyte Esterase Urine RBC Urine WBC Ur Squamous Epith Cells Ur Renal Epithelial Cell Urine Bacteria Epithelial Casts 11/09/20 06:07 WBC RBC Hgb Hct MCV MCH MCHC RDW Plt Count MPV Immature Gran % (Auto) Neut % (Auto) Lymph % (Auto) [place] % (Auto) Eos % (Auto) Baso % (Auto) Lymph # (Auto) [place] # (Auto) Eos # (Auto) Baso # (Auto) Abs Immat Gran (auto) Absolute Neuts (auto) Absolute Nucleated RBC Nucleated RBC % (auto) O2 Saturation 87.0 ABG pH at Pt Temp 7.34 L ABG pCO2 at Pt Temp 48 H ABG pO2 at Pt Temp 60 L ABG HCO3 26 ABG Base Excess (Actual) -0.3 Sodium Potassium Chloride Carbon Dioxide Anion Gap BUN Creatinine Estim Creat Clear Calc Estimated GFR Random Glucose Calcium Troponin I High Sens B-Natriuretic Peptide NT-Pro-B Natriuret Pep Urine Color Urine Appearance Urine pH Ur Specific [place] Urine Protein Urine Glucose (UA) Urine Ketones Urine Blood Urine Nitrite Ur Leukocyte Esterase Urine RBC Urine WBC Ur Squamous Epith Cells Ur Renal Epithelial Cell Urine Bacteria Epithelial Casts Imaging Radiologist's impression: Impressions Chest X-Ray 11/09/20 05:50 IMPRESSION: Hyperexpanded, emphysematous lungs with unchanged linear bibasilar opacities that may correspond atelectasis or consolidation. Unchanged trace left pleural effusion. Assessment and Plan (1) Atrial flutter with rapid ventricular response: Status: Acute Atrial flutter with rapid ventricular response induced by acute respiratory failure related to COPD exacerbation/pneumonia. Continue aggressively manage her underlying pulmonary condition which has in the past also lead to paroxysm is a of atrial flutter/fibrillation. Agree with IV Cardizem drip and once rate is better controlled can transition to p.o. Cardizem. For now continue IV Cardizem drip. Also will need digitalization with digoxin 0.25 mg IV q.6 x3 doses. Given her significant bronchospasm and hypoxic respiratory failure use metoprolol only judiciously. Switch to lungs the cystic bronchodilators to reduce cardiac stimulation. Also agree with Lovenox for now. (2) Acute respiratory failure: Status: Acute Acute respiratory failure secondary to COPD exacerbation/pneumonia. Management as per hospitalist team. Consider pulmonary consultation. Currently on oxygen supplementation as well. Maintain oxygen saturation above 90%. Will follow with the patient.
--- NOTE | 2020-11-09 10:06 | MHC.SLORD ---
HOOD MAKER spoke with RN this morning regarding tolerance to unmodified diet. RN stated pt ate an omelet and coffee this morning without difficulty. Pt continues to tolerate meds whole in liquid. [place] message sent to MD and RN re: recommendation for MBSS to rule in/out SILENT aspiration, as pt is admitted with aspiration PNA. MD stated pt is not appropriate at this time. Dysphagia therapy is no longer warranted at this level of care. Please re-refer if HOOD MAKER can be of help. Name: Ruby Mahan Date of : 1960 Age: 60 Date of Registration: 11/08/20 Speech Language Pathology Order Status:
[2020-11-09 10:19] LABS: Cholesterol 135 mg/dL; HDL Cholesterol 37 mg/dL; LDL Cholesterol Calculated 77 mg/dl; Triglycerides 107 mg/dL
[2020-11-09] MEDS: Digoxin 0.5 MG/2 ML AMPUL 0.25 MG IVPUSH ×2 (10:36→15:30)
[2020-11-09] MEDS: cefTRIAXone sodium 1 GM in 0.9 % Sodium Chloride 50 ML IV (10:37)
--- NOTE | 2020-11-09 10:59 | CONS_ITS ---
DATE OF SERVICE: 11/09/2020 HISTORY OF PRESENT ILLNESS: This patient is a 60-year-old female, admitted yesterday through the emergency room because of shortness of breath increased over the last 1 week, but became much worse on 11/08. She denied fever, chills, or chest pain. She kept on using her inhaler albuterol without much improvement, and she was using her oxygen, which she has at home. She denies having had any recent sick contacts, but she has had increased cough with greenish phlegm for the past 1 week. When she came to the emergency room, she was quite hypoxemic even on oxygen 4 L/minute, O2 saturation 87%. REVIEW OF SYSTEMS: The patient lives mostly in the house. She complains of generalized weakness. No visual issues. She was able to eat okay, and denied any nausea, vomiting. Her respiratory symptoms were as described above with increased cough and shortness of breath for about 1 week. The patient does have chronic hemiplegia and also seizure disorder, which seemed to be under control. The patient was taking her medications regularly. PERSONAL HISTORY: Unfortunately, she smokes 1 pack of cigarettes a day even though she has advanced COPD and also uses oxygen at home. PHYSICAL EXAMINATION: GENERAL: This 60-year-old female is alert and orientated, currently not in acute respiratory distress. Respiratory rate 14. EARS, NOSE, THROAT: Normal. Does not show any pooling of secretions in her oropharynx. NECK: No JVD. Trachea in midline. CHEST: Symmetrical. Percussion note is resonant. She does have good breath sounds on both sides, though they are diminished. She has inspiratory crackles over the right lower lobe and also at the left base. No audible wheezes. CARDIOVASCULAR: PMI is not localized. Rhythm is regular at this time. No murmurs. ABDOMEN: Flat, soft, and nontender. EXTREMITIES: No pitting edema. Peripheral pulses, faintly palpable. Left leg is somewhat smaller than the right side. NEUROLOGIC: Shows she has left-sided weakness. DIAGNOSTIC DATA: Chest x-ray, increased bronchovascular markings over both lower lobes are noted. In addition, there is opacification of the right lower lobe suggesting superadded pneumonia. LABORATORY DATA: White cell count 17.0, hemoglobin 14.3, immature granules 2.1. Blood gases; pH 7.34, pCO2 of 48, and pO2 of 60. Electrolytes are normal except for chloride of 93, which is slightly below normal. BUN 32, blood glucose 134. BNP 637. CLINICAL IMPRESSION: Chronic obstructive pulmonary disease related to long-time smoking. Most likely, she has bilateral interstitial lung disease in the lower lobes. Superadded pneumonia in the right lower lobe. It was also noted that she had atrial flutter with rapid ventricular response after admission. This may be new. RECOMMENDATIONS: Agree with current treatment with antibiotics, and combination of doxycycline and Rocephin is fine. DuoNeb updrafts q.6 hours while awake. Oxygen supplementation to keep O2 saturation above 90%. Smoking cessation. The patient may be started on nicotine patch. IV Solu-Medrol 40 mg q.8 hours for 1 or 2 days, then short course of prednisone will be fine. Thank you very much for asking me to see this patient. I will be glad to follow her along. MD ALIA Hopkins/DEN / [phone]
--- NOTE | 2020-11-09 12:23 | MHC.CM.PN ---
met with pt who has home 02 at night she does not anticipate needing services when dcd she will self arrange own transportaion home
--- NOTE | 2020-11-09 15:09 | PC.NURSE ---
[id number] PAtient aflutter on tele 150-160s maxed on cardizem gtt @ 15mg/hr (15ml/hr). Patient denies chest pain/pressure. RR 20-24 at times with excertion, lungs diminished throughout, non-productive cough noted. Per patient she wears 2l home O2 @ HS however is requiring 15L oxymizer currently or 100% NRB mask at times for recovery. Patient was seen this AM by pulmonology & Cardio who recommended IV Digoxin, pt received her first IV Dig dose this am (see OCT). Continues with tachycardia/hypoxia at times this afternoon, pt placed on NRB mask @ 1415 with respiratory at bedside d.t pt maintaining sats @ 82% HR up to the 160-170s. After NRB placed, HR decreased to 100-115. Dr Mills aware. Will cont to monitor, reort given to oncomming RN
[2020-11-09] MEDS: dilTIAZem HCL SR 60 MG CAP.ER.12H 120 MG PO (21:55)
[2020-11-09] MEDS: Doxycycline Hyclate 100 MG in 0.9 % Sodium Chloride 250 ML 166.67 MG IV (21:56)
[2020-11-10] VITALS (13 sets, daily range): BP systolic 104–144; BP diastolic 59–76; PULSE 64–95; RESP 18–22; TEMP 35.8–36.9; O2SAT 89–94
--- NOTE | 2020-11-10 | ECG_ITS ---
Test Reason : CP Blood Pressure : / mmHG Vent. Rate : 084 BPM Atrial Rate : 084 BPM P-R Int : 130 ms QRS Dur : 096 ms QT Int : 336 ms P-R-T Axes : 080 268 078 degrees QTc Int : 397 ms Sinus rhythm with Premature atrial complexes Incomplete right bundle branch block Right ventricular hypertrophy Inferior infarct (cited on or before 17-APR-2005) Anterolateral infarct (cited on or before 06-APR-2004) Abnormal ECG When compared with ECG of 09-NOV-2020 17:59, Incomplete right bundle branch block is now Present Questionable change in initial forces of Lateral leads Referred By: Stepan Mills Electronically Signed By:DAMARIS LIU MD
[2020-11-10] MEDS: Enoxaparin Sodium 60 MG/0.6 ML SYRINGE SUBCUT (06:12)
[2020-11-10] MEDS: methylPREDNISolone Sod Succ 40 MG/ML VIAL IVPUSH ×4 (06:13→23:47)
[2020-11-10] MEDS: Ipratropium Bromide 0.5 MG/2.5 ML SOLUTION INHALE ×4 (07:45→20:07)
[2020-11-10 09:19] LABS: Hemoglobin 13.7 g/dl (12.0-16.0); Mean Corpuscular HGB Conc 32.6 g/dl (31.0-35.0); Mean Corpuscular Hemoglobin 31.4 pg (27.0-33.0); Mean Corpuscular Volume 96.1 fL (80-98); Mean Platelet Volume 10.2 fL (9.4-12.3); NRBC Pct Auto 0.1 /100WBC (0.0-0.2); Platelet Count 443 X10*3/uL (160-400); Red Blood Count 4.37 X10*6/uL (4.20-5.50); Red Cell Distribution Width 11.8 % (11.0-16.0); White Blood Count 23.4 X10*3/uL (4.8-10.8)
[2020-11-10 09:43] LABS: Anion Gap 16 (12-20); Blood Urea Nitrogen 41 mg/dL (9-16); Calcium 9.2 mg/dL (8.4-10.2); Carbon Dioxide 33 mmol/L (22-29); Chloride 91 mmol/L (96-108); Creatinine Clr Calc Pharmacy 81.3; Estimated Glomerular Filt Rate > 60; Glucose Random 123 mg/dL (60-115); Potassium 4.5 mmol/L (3.3-5.1); Sodium 135 mmol/L (135-145)
--- NOTE | 2020-11-10 09:45 | HO.PM.IMPN ---
Subjective Subjective Date of Service: 11/10/20 Interval History: seen and examined this AM feels tired but thinks breathing may be easier discussed oral anticoagulation with her, agreeable on starting eliquis. ROS General - no fevers or chills Cardiovascular - no chest pain Respiratory - +sob, +cough Abdominal- no abdominal pain, nausea, vomiting, diarrhea Physical Exam Vital Signs: Vital Signs: Last Vital Signs Temp 97.0 F 11/10/20 07:53 Pulse 78 11/10/20 07:53 Resp 22 H 11/10/20 07:53 BP 136/76 11/10/20 07:58 Pulse Ox 92 11/10/20 07:53 Body Mass Index 21.3 Const: Other: Constitutional - Awake and Alert, No apparent distress Eyes - PERRLA, EOMI Cardiovascular - S1S2, RRR, No edema Respiratory - dim sounds; on oxymizer; appears without distress Gastrointestinal - NT / ND; +BS; No rebound or guarding - No CVA tenderness Extremities - no calf tenderness bilaterally, no swelling Musculoskeletal - Normal inspection, normal ROM Skin - Warm/Dry Neurological - Alert & oriented x3, L-hemiplegia Psychological - Appropriate affect Objective Data Current Medications Generic Name Dose Route Start Last Admin Trade Name Freq PRN Reason Stop Dose Admin Acetaminophen 650 mg 11/08/20 14:25 Acetaminophen 325 Mg Tablet PO Q6H PRN Pain, Mild (Pain Scale 1-3) Baclofen 20 mg 11/08/20 21:00 11/09/20 21:55 Baclofen 20 Mg Tablet PO 20 mg BID VIANEY Administration Diltiazem HCl 120 mg 11/10/20 09:00 Diltiazem Hcl Cd 120 Mg Cap.Er.Deg PO DAILY [facility] Protocol Diphenhydramine HCl 25 mg 11/08/20 23:39 11/09/20 21:57 Diphenhydramine Hcl 25 Mg Tablet PO 25 mg BEDTIME PRN Administration Insomnia Divalproex Sodium 250 mg 11/08/20 21:00 11/09/20 21:55 Divalproex Sodium 250 Mg Tablet.Dr PO 250 mg BID VIANEY Administration Enoxaparin Sodium 60 mg 11/09/20 06:00 11/10/20 06:12 Enoxaparin Sodium 60 Mg/0.6 Ml Syringe 1 mg/kg (60 mg) 60 mg SUBCUT Administration Q12H [facility] Furosemide 20 mg 11/09/20 08:30 11/09/20 21:55 Furosemide 20 Mg/2 Ml Vial IVPUSH 20 mg Q12H VIANEY Administration Protocol Guaifenesin/Codeine Phosphate 5 ml 11/09/20 06:32 Guaifen/Codeine Sf 200/20/10ml 10 Ml Liquid PO Q4H PRN Cough Ceftriaxone Sodium 1 gm/ 50 mls @ 100 mls/hr 11/09/20 09:00 11/09/20 11:17 Sodium Chloride IV Infused Q24H VIANEY Infusion Doxycycline Hyclate 100 mg/ 250 mls @ 166.67 mls/hr 11/08/20 21:00 11/09/20 23:42 Sodium Chloride IV Infused Q12H VIANEY Infusion Ipratropium [place] 0.5 mg 11/08/20 16:00 11/10/20 07:45 Ipratropium [place] 0.5 Mg/2.5 Ml Solution INHALE 0.5 mg RQ4H WHILE AWAKE VIANEY Administration Levalbuterol HCl 1.25 mg 11/08/20 16:00 11/10/20 07:45 Levalbuterol Hcl 1.25 Mg/0.5 Ml Vial.Neb INHALE 1.25 mg RQ4H WHILE AWAKE VIANEY Administration Levalbuterol HCl 1.25 mg 11/09/20 05:37 Levalbuterol Hcl 1.25 Mg/0.5 Ml Vial.Neb INHALE Q3H PRN Shortness of Breath/Wheezing Methylprednisolone Sodium Succinate 40 mg 11/09/20 05:45 11/10/20 06:13 Methylprednisolone Sod Succ 40 Mg/Ml Vial IVPUSH 40 mg Q6H VIANEY Administration Nicotine 14 mg 11/08/20 14:30 11/09/20 08:36 Nicotine 14 Mg Patch.Td24 TRANSDERMA 14 mg DAILY VIANEY Administration Pharmacy Consult 1 each 11/08/20 10:07 Consult Rx Perform Med Rec MISCELLANE ONCE PRN Consult order Sodium Chloride 3 ml 11/08/20 16:00 11/09/20 16:56 0.9 % Sodium Chloride Flush 3 Ml Syringe IVFLUSH 3 ml QSHIFT [facility] Administration Labs CBC & Chem 7: 11/10/20 08:40 11/10/20 08:40 Microbiology Microbiology Results: Microbiology 11/08/20 10:08 Urine clean catch - Clean Catch Midstream Urine Culture - Final 11/08/20 09:03 Blood - Venous Blood Culture - Preliminary No growth after 24 hours. 11/08/20 08:13 Blood - Venous Blood Culture - Preliminary No growth after 24 hours. Assessment and Plan (1) Sepsis: Status: Acute Assessment and Plan: This is a 60 yo F with a PMH of CVA with resultant L hemiplegia, active tobacco use (but denies formal COPD diagnosis), seizure disorder on depakote who presents to the hospital with progressive SOB and cough over the last 7-10 days and is now being admitted for sepsis and acute respiratory failure with hyopxia secondary to COPD(undiagnosed) / pneumonia, possibly CHF as well. 1. Sepsis secondary to pneumonia / COPD + acute respiratory failure with hypoxia + chronic resp failure with O2 2L at night O2 requirements remain high - 6L, continue oxygen with O2 goals 88-92; wean to NC today if tolerated - 3-4L PM continue with Rocephin/Doxy - day #3 2. Acute COPD exacerbation / Pneumonia suspect give her history of tobacco use, she has undiagnosed COPD continue IV steroids and [facility] - start steroid taper tomorrow 3. A. Fib/flutter with RVR converted yesterday evening cardizem gtt stopped, on oral cardizem change lovenox to Eliquis 5mg BID cardiology on board -- will follow their recs 4. Acute CHF possibly diastolic, poor quality echo but LVEF appears preserved slowly improving BNP down-trending will give IV lasix today and possibly convert to oral by tomorrow 5. History of CVA LDL 77, not on any statins 5. History of seizures continue Depakote 6. Tobacco use Disorder NRT with patch cessation as been strongly encouraged 7. Generalized weakness will get PT evaluation likely tomorrow AM if remains stable from cardiac/pulmonary perspective Full Code DVT pptx, Lovenox Reports her sister is HCP
[2020-11-10 09:48] LABS: B Type Natriuretic Peptide 481 pg/mL (<100)
--- NOTE | 2020-11-10 09:59 | P.PNPL_ITS ---
Subjective Subjective Date of Service: 11/10/20 Principal diagnosis: copd/pneumonia Interval history: And is seen for follow-up. She is doing little better today. Remains alert and well orientated. Remains afebrile, denies any chest pain. Still moderately short of breath as usual. O2 requirement down to 6 L/minute Objective Data Labs CBC & Chem 7: 11/10/20 08:40 11/10/20 08:40 Labs: Laboratory Results - last 24 hr 11/09/20 11/10/20 11/10/20 05:32 08:40 08:40 WBC 23.4 H RBC 4.37 Hgb 13.7 Hct 42.0 MCV 96.1 MCH 31.4 MCHC 32.6 RDW 11.8 Plt Count 443 H MPV 10.2 Absolute Nucleated RBC 0.020 H Nucleated RBC % (auto) 0.1 Sodium 135 Potassium 4.5 Chloride 91 L Carbon Dioxide 33 H Anion Gap 16 BUN 41 H Creatinine 0.68 Estim Creat Clear Calc 81.3 Estimated GFR > 60 Random Glucose 123 H Calcium 9.2 B-Natriuretic Peptide Triglycerides 107 Cholesterol 135 LDL Cholesterol, Calc 77 HDL Cholesterol 37 11/10/20 08:40 WBC RBC Hgb Hct MCV MCH MCHC RDW Plt Count MPV Absolute Nucleated RBC Nucleated RBC % (auto) Sodium Potassium Chloride Carbon Dioxide Anion Gap BUN Creatinine Estim Creat Clear Calc Estimated GFR Random Glucose Calcium B-Natriuretic Peptide 481 H Triglycerides Cholesterol LDL Cholesterol, Calc HDL Cholesterol Microbiology Microbiology Results: Microbiology 11/08/20 10:08 Urine clean catch - Clean Catch Midstream Urine Culture - Final 11/08/20 09:03 Blood - Venous Blood Culture - Preliminary No growth after 24 hours. 11/08/20 08:13 Blood - Venous Blood Culture - Preliminary No growth after 24 hours. Review of Systems Constitutional: Reports weakness Reports system reviewed and no additional complaints, except as documented and Reports post nasal drip (minimal) Cardiovascular: Denies chest pain and Reports dyspnea on exertion Respiratory: Reports chest congestion, Reports cough and Reports dyspnea on exertion Musculoskeletal: Reports muscle weakness Reports Abnormal speech present and Reports weakness Physical Exam Vital Signs: Vital Signs: Last Vital Signs Temp 97.0 F 11/10/20 07:53 Pulse 78 11/10/20 07:53 Resp 22 H 11/10/20 07:53 BP 136/76 11/10/20 07:58 Pulse Ox 92 11/10/20 07:53 Body Mass Index 21.3 Const: Other: Chronically sick-looking, moderately short of breath General: no acute distress, alert and awake Orientation/consciousness: patient oriente d x3 HENMT: Head: Yes normal to inspection General nose exam: No nasal polyps present, No nasal discharge present and Other nasal findings present (mild nasal congestion .) Face and sinus: Yes sinuses nontender Mouth: oropharynx normal Throat: Yes posterior oropharynx normal Eyes: General: appearance normal, both eyes and all related structures Neck: Neck: Yes normal visual inspection, Yes no lymphadenopathy, Yes trachea midline and Yes no JVD Thyroid: Thyroid normal Chest: Chest palpation & inspection: normal inspection of the chest and normal palpation of entire chest wall Resp: Effort & Inspection: prolonged expiratory phase Auscultation: crackles (over rt lower lobe and lt base ) and diminished lung sounds Cardio: Palpation: normal PMI Rate: regular rate Rhythm: regular rhythm Heart sounds: no gallops and no murmurs GI: Palpation (GI): Soft to palpation, Tenderness to palpation present (GI), No hepatosplenomegaly present and Palpable mass present Auscultation: normal bowel sounds Back/Spine/Pelvis: Thoracic/Lumbar Spine: thoracic and lumbar spine normal to inspection Skin: General skin exam: no rashes or lesions noted Neuro: General: patient oriented x3 and no focal motor deficits (lt. hemiplegia, chronic . ) Cranial nerves: Yes CN's II-XII intact bilaterally Speech: Abnormal speech present Extrem: General: Yes normal to inspection, Yes no clubbing, cyanosis or edema, Yes no calf tenderness and Yes venous stasis dermatitis Psych: Speech and movement: Normal speech and movement present Assessment and Plan Assessment and plan (1) Asthma exacerbation in COPD: Problem details: Acute exacerbation caused by acute respiratory infection, improving Continue the present medical treatment. Status: Acute (2) Pneumonia: Problem details: Patient has pneumonia right lower lobe and left base, improving with treatment Continue the present antibiotic regimen Status: Acute (3) Acute respiratory failure: Problem details: Acute on chronic respiratory failure mainly due to hypoxemia and increased O2 requirement, gradually improving. Gradually wean down oxygen flow to 3-4 L/minute keeping O2 sat above 90% Status: Acute Time Spent With Patient Time: Total time spent is greater than 50% in coordination of care (as d ocumented) at patient's floor/unit and/or counseling patient: Time with patient: 15 - 24 minutes
[2020-11-10] MEDS: Nicotine 14 MG PATCH.TD24 TRANSDERMA (10:43)
[2020-11-10] MEDS: Doxycycline Hyclate 100 MG in 0.9 % Sodium Chloride 250 ML 166.7 MG IV ×2 (10:43→20:41)
[2020-11-10] MEDS: Baclofen 20 MG TABLET PO ×2 (10:44→20:36)
[2020-11-10] MEDS: 0.9 % Sodium Chloride Flush 3 ML SYRINGE IVFLUSH ×3 (10:44→23:47)
[2020-11-10] MEDS: dilTIAZem HCL CD 120 MG CAP.ER.DEG PO (10:44)
[2020-11-10] MEDS: Furosemide 20 MG/2 ML VIAL IVPUSH ×2 (10:44→20:39)
[2020-11-10] MEDS: Divalproex Sodium 250 MG TABLET.DR PO ×2 (10:44→20:36)
[2020-11-10] MEDS: cefTRIAXone sodium 1 GM in 0.9 % Sodium Chloride 50 ML IV (10:59)
--- NOTE | 2020-11-10 11:53 | MHC.CM.PN ---
no mdc date per medical rounds today will continue to follow
--- NOTE | 2020-11-10 14:26 | P.PNCA_ITS ---
Subjective Subjective Date of Service: 11/10/20 Principal diagnosis: copd/pneumonia, atrial flutter Interval history: Patient converted to sinus rhythm and maintaining sinus rhythm. Still short of breath but improving. Denies palpitations, lightheadedness, chest pain. Review of Systems Constitutional: Reports no additional constitutional complaints Cardiovascular: Denies chest pain, Denies lightheadedness, Denies palpitations and Reports dyspnea Respiratory: Reports dyspnea Gastrointestinal: Reports no additional gastrointestinal complaints Musculoskeletal: Reports no additional musculoskeletal complaints Reports system reviewed and no additional complaints, except as documented Psychiatric: Reports no additional psychiatric complaints Endocrine: Reports no additional endocrine complaints and Denies palpitations Physical Exam Vital Signs: Last Vital Signs Temp 97.6 F 11/10/20 12:00 Pulse 83 11/10/20 12:00 Resp 22 H 11/10/20 12:00 BP 144/72 H 11/10/20 12:00 Pulse Ox 91 L 11/10/20 12:00 Body Mass Index 21.3 Const General: cooperative, comfortable and acute distress mild and respiratory Nutritional Appearance: cachectic Orientation/consciousness: patient oriented x3 Neck Neck: Yes trachea midline, Yes supple and Yes no JVD Resp Effort & Inspection: normal respiratory effort Auscultation: wheezes and diminished lung sounds Cardio Palpation: normal PMI Rate: regular rate Rhythm: regular rhythm and abnormal rhythm Heart sounds: S1 normal heart sound present and S2 normal heart sound present GI Auscultation: normal bowel sounds Skin General skin exam: no rashes or lesions noted Neuro General: patient oriented x3 Extrem General: Yes no clubbing, cyanosis or edema Psych Appearance: grossly normal Results Labs and Meds Result diagrams: 11/10/20 08:40 11/10/20 08:40 Lab results: Laboratory Results - last 24 hr 11/10/20 11/10/20 11/10/20 08:40 08:40 08:40 WBC 23.4 H RBC 4.37 Hgb 13.7 Hct 42.0 MCV 96.1 MCH 31.4 MCHC 32.6 RDW 11.8 Plt Count 443 H MPV 10.2 Absolute Nucleated RBC 0.020 H Nucleated RBC % (auto) 0.1 Sodium 135 Potassium 4.5 Chloride 91 L Carbon Dioxide 33 H Anion Gap 16 BUN 41 H Creatinine 0.68 Estim Creat Clear Calc 81.3 Estimated GFR > 60 Random Glucose 123 H Calcium 9.2 B-Natriuretic Peptide 481 H Progress Note: A&P Assessment and plan (1) Paroxysmal atrial flutter: Status: Acute Assessment and Plan: Paroxysmal atrial flutter caused by acute medical illness like in the past. Converted to sinus rhythm with improving respiratory status. Continue to aggressively treat underlying respiratory status. Agree with initiation of Eliquis 5 mg b.i.d. at least for 4-6 weeks. Would prescribe her antiarrhythmic drug therapy with Multaq 400 mg b.i.d. to maintain rhythm control as patient has high likelihood of having recurrent atrial fibrillation due to her underlying severe COPD. She does have echo findings consistent with chronic cor pulmonale related to severe COPD. Could consider evaluation for home oxygen. Twelve lead EKG today and tomorrow needs to be performed Will sign of the case. Please consult us if needed. Fall Risk Details Current Medications: Current Medications Generic Name Dose Route Start Last Admin Trade Name Freq PRN Reason Stop Dose Admin Acetaminophen 650 mg 11/08/20 14:25 Acetaminophen 325 Mg Tablet PO Q6H PRN Pain, Mild (Pain Scale 1-3) Apixaban 5 mg 11/10/20 21:00 Apixaban 5 Mg Tablet PO BID VIANEY Baclofen 20 mg 11/08/20 21:00 11/10/20 10:44 Baclofen 20 Mg Tablet PO 20 mg BID VIANEY Administration Diltiazem HCl 120 mg 11/10/20 09:00 11/10/20 10:44 Diltiazem Hcl Cd 120 Mg Cap.Er.Deg PO 120 mg DAILY VIANEY Administration Protocol Diphenhydramine HCl 25 mg 11/08/20 23:39 11/09/20 21:57 Diphenhydramine Hcl 25 Mg Tablet PO 25 mg BEDTIME PRN Administration Insomnia Divalproex Sodium 250 mg 11/08/20 21:00 11/10/20 10:44 Divalproex Sodium 250 Mg Tablet.Dr PO 250 mg BID VIANEY Administration Dronedarone 400 mg 11/10/20 21:00 Dronedarone Hcl 400 Mg Tablet PO BID VIANEY Furosemide 20 mg 11/09/20 08:30 11/10/20 10:44 Furosemide 20 Mg/2 Ml Vial IVPUSH 20 mg Q12H VIANEY Administration Protocol Guaifenesin/Codeine Phosphate 5 ml 11/09/20 06:32 Guaifen/Codeine Sf 200/20/10ml 10 Ml Liquid PO Q4H PRN Cough Ceftriaxone Sodium 1 gm/ 50 mls @ 100 mls/hr 11/09/20 09:00 11/10/20 12:30 Sodium Chloride IV Infused Q24H VIANEY Infusion Doxycycline Hyclate 100 mg/ 250 mls @ 166.67 mls/hr 11/08/20 21:00 11/10/20 12:29 Sodium Chloride IV Infused Q12H VIANEY Infusion Ipratropium [place] 0.5 mg 11/08/20 16:00 11/10/20 11:41 Ipratropium [place] 0.5 Mg/2.5 Ml Solution INHALE 0.5 mg RQ4H WHILE AWAKE VIANEY Administration Levalbuterol HCl 1.25 mg 11/08/20 16:00 11/10/20 11:41 Levalbuterol Hcl 1.25 Mg/0.5 Ml Vial.Neb INHALE 1.25 mg RQ4H WHILE AWAKE VIANEY Administration Levalbuterol HCl 1.25 mg 11/09/20 05:37 Levalbuterol Hcl 1.25 Mg/0.5 Ml Vial.Neb INHALE Q3H PRN Shortness of Breath/Wheezing Methylprednisolone Sodium Succinate 40 mg 11/09/20 05:45 11/10/20 10:44 Methylprednisolone Sod Succ 40 Mg/Ml Vial IVPUSH 40 mg Q6H VIANEY Administration Nicotine 14 mg 11/08/20 14:30 11/10/20 10:43 Nicotine 14 Mg Patch.Td24 TRANSDERMA 14 mg DAILY VIANEY Administration Pharmacy Consult 1 each 11/08/20 10:07 Consult Rx Perform Med Rec MISCELLANE ONCE PRN Consult order Sodium Chloride 3 ml 11/08/20 16:00 11/10/20 10:44 0.9 % Sodium Chloride Flush 3 Ml Syringe IVFLUSH 3 ml QSHIFT VIANEY Administration Time Spent With Patient Time: Total time spent is greater than 50% in coordination of care (as documented) at patient's floor/unit and/or counseling patient: Time with patient: 15 - 24 minutes
--- NOTE | 2020-11-10 19:41 | PC.NURSE ---
Addendum entered by Chica Hamilton RN 11/10/20 19:42: results reported to DR Dunham ,no new orders Original Note: ekg done and results reported togauri dunham
[2020-11-10] MEDS: Dronedarone HCl 400 MG TABLET PO (20:36)
[2020-11-10] MEDS: Apixaban 5 MG TABLET PO (20:36)
[2020-11-11] VITALS (12 sets, daily range): BP systolic 115–139; BP diastolic 56–68; PULSE 72–94; RESP 16–20; TEMP 36.2–37; O2SAT 90–97
[2020-11-11] MEDS: methylPREDNISolone Sod Succ 40 MG/ML VIAL IVPUSH ×3 (06:00→20:10)
[2020-11-11 06:44] LABS: Hematocrit 41.5 % (37-47); Hemoglobin 13.4 g/dl (12.0-16.0); Mean Corpuscular HGB Conc 32.3 g/dl (31.0-35.0); Mean Corpuscular Hemoglobin 30.8 pg (27.0-33.0); Mean Corpuscular Volume 95.4 fL (80-98); Mean Platelet Volume 9.9 fL (9.4-12.3); NRBC Pct Auto 0.1 /100WBC (0.0-0.2); Platelet Count 433 X10*3/uL (160-400); Red Blood Count 4.35 X10*6/uL (4.20-5.50); Red Cell Distribution Width 11.7 % (11.0-16.0); White Blood Count 23.5 X10*3/uL (4.8-10.8)
[2020-11-11 06:54] LABS: Anion Gap 14 (12-20); Blood Urea Nitrogen 33 mg/dL (9-16); Calcium 8.8 mg/dL (8.4-10.2); Carbon Dioxide 37 mmol/L (22-29); Chloride 90 mmol/L (96-108); Creatinine Clr Calc Pharmacy 93.7; Estimated Glomerular Filt Rate > 60; Glucose Random 113 mg/dL (60-115); Potassium 4.3 mmol/L (3.3-5.1); Sodium 137 mmol/L (135-145)
--- NOTE | 2020-11-11 07:00 | ECG_ITS ---
Test Reason : RHYTHM CHECK Blood Pressure : / mmHG Vent. Rate : 096 BPM Atrial Rate : 096 BPM P-R Int : 130 ms QRS Dur : 094 ms QT Int : 352 ms P-R-T Axes : 085 263 082 degrees QTc Int : 444 ms Sinus rhythm with Premature supraventricular complexes Incomplete right bundle branch block Possible Right ventricular hypertrophy Anterolateral infarct (cited on or before 06-APR-2004) Abnormal ECG When compared with ECG of 10-NOV-2020 16:58, No significant change was found Referred By: Stepan Mills Electronically Signed By:DAMARIS LIU MD
[2020-11-11 07:03] LABS: B Type Natriuretic Peptide 721 pg/mL (<100)
[2020-11-11] MEDS: Ipratropium Bromide 0.5 MG/2.5 ML SOLUTION INHALE ×3 (07:39→20:03)
[2020-11-11] MEDS: 0.9 % Sodium Chloride Flush 3 ML SYRINGE IVFLUSH ×3 (09:03→22:53)
--- NOTE | 2020-11-11 09:23 | PM.PNPUL ---
Subjective Subjective Date of Service: 11/11/20 Principal diagnosis: copd/pneumonia, atrial flutter Interval history: PATIENT SEEN THIS MORNING FOR PULMONARY FOLLOW-UP. SHE IS AFEBRILE, SHORT OF BREATH USUAL, HAS ONLY MINIMAL COUGH. WHO O2 REQUIREMENT HAS INCREASED A BIT. CURRENTLY REQUIRING 12 L/MINUTE BY OXYMIZER. SHE IS STAYING MOSTLY IN THE BED, NOT DOING MUCH BREATHING EXERCISES. Objective Data Labs CBC & Chem 7: 11/11/20 05:26 11/11/20 05:26 Labs: Laboratory Results - last 24 hr 11/10/20 11/10/20 11/10/20 08:40 08:40 08:40 WBC 23.4 H RBC 4.37 Hgb 13.7 Hct 42.0 MCV 96.1 MCH 31.4 MCHC 32.6 RDW 11.8 Plt Count 443 H MPV 10.2 Absolute Nucleated RBC 0.020 H Nucleated RBC % (auto) 0.1 Sodium 135 Potassium 4.5 Chloride 91 L Carbon Dioxide 33 H Anion Gap 16 BUN 41 H Creatinine 0.68 Estim Creat Clear Calc 81.3 Estimated GFR > 60 Random Glucose 123 H Calcium 9.2 B-Natriuretic Peptide 481 H 11/11/20 11/11/20 11/11/20 05:26 05:26 05:26 WBC 23.5 H RBC 4.35 Hgb 13.4 Hct 41.5 MCV 95.4 MCH 30.8 MCHC 32.3 RDW 11.7 Plt Count 433 H MPV 9.9 Absolute Nucleated RBC 0.020 H Nucleated RBC % (auto) 0.1 Sodium 137 Potassium 4.3 Chloride 90 L Carbon Dioxide 37 H Anion Gap 14 BUN 33 H Creatinine 0.59 Estim Creat Clear Calc 93.7 Estimated GFR > 60 Random Glucose 113 Calcium 8.8 B-Natriuretic Peptide 721 H Microbiology Microbiology Results: Microbiology 11/08/20 09:03 Blood - Venous Blood Culture - Preliminary No growth after 48 hours. 11/08/20 08:13 Blood - Venous Blood Culture - Preliminary No growth after 48 hours. 11/08/20 10:08 Urine clean catch - Clean Catch Midstream Urine Culture - Final Review of Systems Review of Systems Yes all other systems are reviewed and are negative Constitutional: Reports body ache(s), Reports chills, Reports fatigue, Reports fever(s) and Reports headache(s) Eyes: Reports blurry vision, Reports irritation, Reports itchy eyes and Reports loss of vision Reports dysphagia, Reports vertigo, Reports headache(s) and Reports nasal congestion (MILD ) Cardiovascular: Denies chest pain and Reports dyspnea Respiratory: Reports cough (INTERMITTENT) and Reports dyspnea Gastrointestinal: Reports bloating, Reports change in bowel habits, Reports change in stool character, Reports dysphagia, Reports heartburn, Reports nausea and Reports vomiting Genitourinary: Reports difficulty voiding and Reports urinary incontinence Musculoskeletal: Reports abnormal gait, Reports back pain, Reports myalgias, Reports arthralgias, Reports muscle weakness and Reports stiffness Reports abnormal gait, Reports vertigo, Reports headache(s), Reports focal weakness, Reports loss of vision, Reports memory loss, Reports restless legs and Reports tremor(s) Psychiatric: Reports anxiety, Reports depression, Reports difficulty concentrating, Reports irritability, Reports memory loss and Reports mood swings Endocrine: Reports no additional endocrine complaints and Reports fatigue Hematologic/Lymphatic: Reports no additional hematologic/lymphatic complaints Allergic/Immunologic: Reports no additional allergic/immunologic complaints and Reports itchy eyes Physical Exam Vital Signs: Vital Signs: Last Vital Signs Temp 98.2 F 11/11/20 07:26 Pulse 93 11/11/20 07:41 Resp 16 11/11/20 07:26 BP 139/62 11/11/20 07:26 Pulse Ox 90 L 11/11/20 07:26 Body Mass Index 21.3 Const: Other: WEAK AND IN BED , SLIGHTLY SOB . General: comfortable, no acute distress, alert and awake Orientation/consciousness: patient oriented x3 HENMT: Head: Yes normal to inspection General nose exam: No nasal polyps present, No nasal discharge present and Other nasal findings present (MILD NASAL CONGESTION .) Face and sinus: Yes sinuses nontender Mouth: oropharynx normal Throat: Yes posterior oropharynx normal Eyes: General: appearance normal, both eyes and all related structures Neck: Neck: Yes normal visual inspection, Yes no lymphadenopathy, Yes trachea midline and Yes no JVD Thyroid: Thyroid normal Resp: Auscultation: crackles (INSPIRATORY OVER BOTH BASES . ), wheezes (A FEW SCATTERED .) and breath sounds absent Cardio: Palpation: normal PMI Rate: regular rate Rhythm: regular rhythm Heart sounds: no gallops and no murmurs GI: Palpation (GI): Soft to palpation, nontender, No hepatosplenomegaly present and no masses Auscultation: normal bowel sounds Back/Spine/Pelvis: Thoracic/Lumbar Spine: thoracic and lumbar spine normal to inspection Skin: General skin exam: no rashes or lesions noted Neuro: General: patient oriented x3 and no focal motor deficits Cranial nerves: Yes CN's II-XII intact bilaterally and Yes Other cranial nerve findings present (HAS MARKED GENERALISED WEAKNESS . ) Extrem: General: Yes normal to inspection, Yes no clubbing, cyanosis or edema, Yes no calf tenderness and Yes venous stasis dermatitis Psych: Speech and movement: Normal speech and movement present Assessment and Plan Assessment and plan (1) Asthma exacerbation in COPD: Problem details: Acute exacerbation caused by acute respiratory infection, improving Continue the present medical treatment. Status: Acute (2) Pneumonia: Problem details: Patient has pneumonia right lower lobe and left base, improving with treatment Continue the present antibiotic regimen . Status: Acute (3) Tobacco use: Problem details: SMOKING CESSATION , PROGRAM .ON NICOTINE PATCH , Status: Acute (4) Acute respiratory failure: Problem details: Acute on chronic respiratory failure mainly due to hypoxemia and increased O2 requirement . O2 requirement is increased . may be having atelectasis of basilar areas . ENCOURAGE OOB , INCENTIVE SPIROMETRY , REPEAT CHEST XRAY TODAY . Status: Acute Time Spent With Patient Time: Total time spent is greater than 50% in coordination of care (as documented) at patient's floor/unit and/or counseling patient: Time with patient: 15 - 24 minutes
[2020-11-11] MEDS: Baclofen 20 MG TABLET PO ×2 (09:58→20:10)
[2020-11-11] MEDS: Nicotine 14 MG PATCH.TD24 TRANSDERMA (09:58)
[2020-11-11] MEDS: Apixaban 5 MG TABLET PO ×2 (09:58→20:10)
[2020-11-11] MEDS: Divalproex Sodium 250 MG TABLET.DR PO ×2 (09:58→20:10)
[2020-11-11] MEDS: dilTIAZem HCL CD 120 MG CAP.ER.DEG PO (09:58)
[2020-11-11] MEDS: cefTRIAXone sodium 1 GM in 0.9 % Sodium Chloride 50 ML IV (09:59)
[2020-11-11] MEDS: Dronedarone HCl 400 MG TABLET PO ×2 (10:05→20:10)
[2020-11-11 10:20] LABS: Procalcitonin 0.03 ng/mL
[2020-11-11] MEDS: Doxycycline Hyclate 100 MG in 0.9 % Sodium Chloride 250 ML 166.7 MG IV (11:01)
--- NOTE | 2020-11-11 14:22 | P.PNIM_ITS ---
Subjective Subjective Date of Service: 11/11/20 Interval History: f/u respiratory failure/pna/new onset atrial fibrillation Increasing oxygen requirement compared to yesterday Continues to feel sob, have cough No overnight events Review of Systems Review of Systems: Yes all other systems are reviewed and are negative Constitutional Constitutional: Denies chills and Denies fever(s) Cardiovascular Cardiovascular: Denies chest pain and Reports dyspnea Respiratory Respiratory: Reports cough and Reports dyspnea Gastrointestinal Gastrointestinal: Denies abdominal pain Physical Exam Vital Signs: Vital Signs: Last Vital Signs Temp 98.2 F 11/11/20 11:05 Pulse 81 11/11/20 11:29 Resp 20 11/11/20 11:05 BP 137/63 11/11/20 11:29 Pulse Ox 91 L 11/11/20 11:29 Body Mass Index 21.3 Const: Nutritional Appearance: well nourished Orientation/consciousness: patient oriented x3 HENMT: Head: Yes normocephalic and Yes atraumatic Eyes: Sclerae: sclerae normal Chest: Chest palpation & inspection: normal inspection of the chest Resp: Other: bibasilar inspiratory crackles, scattered wheezing; diminished breath sounds Cardio: Rate: regular rate Rhythm: regular rhythm GI: Palpation (GI): Soft to palpation and nontender Skin: General skin exam: no rashes or lesions noted Neuro: General: patient oriented x3 Cranial nerves: Yes CN's II-XII intact bilaterally and Yes Bilaterally intact EOM present Extrem: Other: dry skin b/l lower extremities, no edema Objective Data Current Medications Generic Name Dose Route Start Last Admin Trade Name Freq PRN Reason Stop Dose Admin Acetaminophen 650 mg 11/08/20 14:25 Acetaminophen 325 Mg Tablet PO Q6H PRN Pain, Mild (Pain Scale 1-3) Apixaban 5 mg 11/10/20 21:00 11/11/20 09:58 Apixaban 5 Mg Tablet PO 5 mg BID VIANEY Administration Baclofen 20 mg 11/08/20 21:00 11/11/20 09:58 Baclofen 20 Mg Tablet PO 20 mg BID VIANEY Administration Diltiazem HCl 120 mg 11/10/20 09:00 11/11/20 09:58 Diltiazem Hcl Cd 120 Mg Cap.Er.Deg PO 120 mg DAILY VIANEY Administration Protocol Diphenhydramine HCl 25 mg 11/08/20 23:39 11/09/20 21:57 Diphenhydramine Hcl 25 Mg Tablet PO 25 mg BEDTIME PRN Administration Insomnia Divalproex Sodium 250 mg 11/08/20 21:00 11/11/20 09:58 Divalproex Sodium 250 Mg Tablet.Dr PO 250 mg BID VIANEY Administration Dronedarone 400 mg 11/10/20 21:00 11/11/20 10:05 Dronedarone Hcl 400 Mg Tablet PO 400 mg BID VIANEY Administration Guaifenesin 1,200 mg 11/11/20 21:00 Guaifenesin [place] 600 Mg Tab.Er.12h PO BID VIANEY Guaifenesin/Codeine Phosphate 5 ml 11/09/20 06:32 Guaifen/Codeine Sf 200/20/10ml 10 Ml Liquid PO Q4H PRN Cough Ceftriaxone Sodium 1 gm/ 50 mls @ 100 mls/hr 11/09/20 09:00 11/11/20 10:46 Sodium Chloride IV Infused Q24H VIANEY Infusion Doxycycline Hyclate 100 mg/ 250 mls @ 166.67 mls/hr 11/08/20 21:00 11/11/20 12:58 Sodium Chloride IV Infused Q12H VIANEY Infusion Ipratropium [place] 0.5 mg 11/08/20 16:00 11/11/20 11:19 Ipratropium [place] 0.5 Mg/2.5 Ml Solution INHALE Not Given RQ4H WHILE AWAKE [facility] Levalbuterol HCl 1.25 mg 11/08/20 16:00 11/11/20 11:19 Levalbuterol Hcl 1.25 Mg/0.5 Ml Vial.Neb INHALE Not Given RQ4H WHILE AWAKE [facility] Levalbuterol HCl 1.25 mg 11/09/20 05:37 Levalbuterol Hcl 1.25 Mg/0.5 Ml Vial.Neb INHALE Q3H PRN Shortness of Breath/Wheezing Methylprednisolone Sodium Succinate 40 mg 11/09/20 05:45 11/11/20 11:01 Methylprednisolone Sod Succ 40 Mg/Ml Vial IVPUSH 40 mg Q6H VIANEY Administration Nicotine 14 mg 11/08/20 14:30 11/11/20 09:58 Nicotine 14 Mg Patch.Td24 TRANSDERMA 14 mg DAILY VIANEY Administration Pharmacy Consult 1 each 11/08/20 10:07 Consult Rx Perform Med Rec MISCELLANE ONCE PRN Consult order Sodium Chloride 3 ml 11/08/20 16:00 11/11/20 09:03 0.9 % Sodium Chloride Flush 3 Ml Syringe IVFLUSH 3 ml QSHIFT VIANEY Administration Labs CBC & Chem 7: 11/11/20 05:26 11/11/20 05:26 Microbiology Microbiology Results: Microbiology 11/08/20 09:03 Blood - Venous Blood Culture - Preliminary No growth after 48 hours. 11/08/20 08:13 Blood - Venous Blood Culture - Preliminary No growth after 48 hours. 11/08/20 10:08 Urine clean catch - Clean Catch Midstream Urine Culture - Final Assessment and Plan (1) Paroxysmal atrial flutter: Status: Acute (2) Acute respiratory failure: Problem details: Acute on chronic respiratory failure mainly due to hypoxemia and increased O2 requirement . O2 requirement is increased . may be having atelectasis of basilar areas . ENCOURAGE OOB , INCENTIVE SPIROMETRY , REPEAT CHEST XRAY TODAY . Status: Acute (3) Pneumonia: Problem details: Patient has pneumonia right lower lobe and left base, improving with treatment Continue the present antibiotic regimen . Status: Acute Assessment and Plan: This is a 60 yo F with a PMH of CVA with resultant L hemiplegia, active tobacco use (but denies formal COPD diagnosis), seizure disorder on depakote who presents to the hospital with progressive SOB and cough over the last 7-10 days and is now being admitted for sepsis and acute respiratory failure with hyopxia secondary to COPD (undiagnosed) / pneumonia, possibly CHF as well. 1. Sepsis secondary to pneumonia / COPD + acute respiratory failure with hypoxia + chronic resp failure with O2 2L at night O2 requirements remain increased - 12L with oximizer, continue oxygen with O2 goals 88-92; wean o2 as tolerated -continue with Rocephin/Doxy (will change doxy to PO) - day #4 -BCx neg to date 2. Acute COPD exacerbation / Pneumonia suspect give her history of tobacco use, she has undiagnosed COPD CT chest 11/11 showing airway impaction, volume loss suggestive of atelectasis secondary to inflammatory process. WBC continues to be elevated, likely due to IV steroids -Change IV steroids to BID -antibiotics as above -continue scheduled updrafts -pulmonary following 3. A. Fib/flutter with RVR Currently in NSR. Seen by cardiology -continue minerva thompson -continue AC with Eliquis 5mg BID 4. Acute CHF possibly diastolic, right heart failure, poor quality echo from 11/09 but LVEF appears preserved BNP increased, although does not appear to be fluid overloaded on exam -will hold off on further diuresis at this time 5. History of CVA LDL 77, not on any statins 5. History of seizures continue Depakote 6. Tobacco use Disorder NRT with patch cessation as been strongly encouraged 7. Generalized weakness will get PT evaluation when medically improving Full Code DVT pptx, Lovenox Reports her sister is HCP Attending: Dr. hernandes
[2020-11-11] MEDS: guaiFENesin LA 600 MG TAB.ER.12H 1200 MG PO (20:10)
[2020-11-12] VITALS (9 sets, daily range): BP systolic 113–139; BP diastolic 58–70; PULSE 67–84; RESP 18–22; TEMP 36.2–37.1; O2SAT 91–99
[2020-11-12 06:54] LABS: Hematocrit 43.2 % (37-47); Hemoglobin 13.9 g/dl (12.0-16.0); Mean Corpuscular HGB Conc 32.2 g/dl (31.0-35.0); Mean Corpuscular Hemoglobin 31.1 pg (27.0-33.0); Mean Corpuscular Volume 96.6 fL (80-98); Mean Platelet Volume 9.5 fL (9.4-12.3); Platelet Count 419 X10*3/uL (160-400); Red Blood Count 4.47 X10*6/uL (4.20-5.50); Red Cell Distribution Width 11.7 % (11.0-16.0); White Blood Count 23.8 X10*3/uL (4.8-10.8)
[2020-11-12 07:19] LABS: Anion Gap 12 (12-20); Blood Urea Nitrogen 26 mg/dL (9-16); Calcium 8.8 mg/dL (8.4-10.2); Carbon Dioxide 39 mmol/L (22-29); Chloride 88 mmol/L (96-108); Creatinine Clr Calc Pharmacy 100.6; Estimated Glomerular Filt Rate > 60; Glucose Random 98 mg/dL (60-115); Sodium 134 mmol/L (135-145)
[2020-11-12] MEDS: Ipratropium Bromide 0.5 MG/2.5 ML SOLUTION INHALE ×3 (07:45→20:06)
[2020-11-12 08:27] LABS: Band Neutrophils Percent 4 % (3-5); Lymphocytes Absolute Manual 0.7 X10*3/uL (0.6-4.8); Lymphocytes Percent Manual 3 % (20-40); Metamyelocytes Absolute 0.5 X10*3/uL; Metamyelocytes Percent 2 %; Monocytes Absolute Manual 1.2 X10*3/uL (0.0-1.2); Monocytes Percent Manual 5 % (2-11); Myelocytes Absolute 0.7 X10*/uL; Myelocytes Percent 3 %; Neutrophils Absolute Manual 20.7 X10*3/uL (2.2-7.9); Neutrophils Percent Manual 83 % (45-73)
[2020-11-12 08:28] LABS: Platelet Estimate NORMAL (NORMAL); Platelet Morphology Comment NORMAL; RBC Morphology NORMAL
[2020-11-12] MEDS: Divalproex Sodium 250 MG TABLET.DR PO ×2 (09:12→20:40)
[2020-11-12] MEDS: Baclofen 20 MG TABLET PO ×2 (09:12→20:40)
[2020-11-12] MEDS: Dronedarone HCl 400 MG TABLET PO ×2 (09:12→20:39)
[2020-11-12] MEDS: guaiFENesin LA 600 MG TAB.ER.12H 1200 MG PO ×2 (09:12→20:39)
[2020-11-12] MEDS: Apixaban 5 MG TABLET PO ×2 (09:12→20:40)
[2020-11-12] MEDS: dilTIAZem HCL CD 120 MG CAP.ER.DEG PO (09:12)
[2020-11-12] MEDS: 0.9 % Sodium Chloride Flush 3 ML SYRINGE IVFLUSH ×3 (09:13→20:40)
[2020-11-12] MEDS: Nicotine 14 MG PATCH.TD24 TRANSDERMA (09:13)
[2020-11-12] MEDS: methylPREDNISolone Sod Succ 40 MG/ML VIAL IVPUSH ×2 (09:13→20:40)
[2020-11-12] MEDS: cefTRIAXone sodium 1 GM in 0.9 % Sodium Chloride 50 ML IV (09:13)
--- NOTE | 2020-11-12 10:38 | P.PNPL_ITS ---
Subjective Subjective Date of Service: 11/12/20 Principal diagnosis: copd/pneumonia, atrial flutter Interval history: Patient seen for pulmonary follow-up. Claims to be feeling little bit better, Still moderately short of breath and has intermittent cough which is mostly nonproductive. Remains afebrile and denies any chest pain. Oxygen 6 L/minutes at. Objective Data Labs CBC & Chem 7: 11/12/20 05:36 11/12/20 05:36 Labs: Laboratory Results - last 24 hr 11/12/20 11/12/20 05:36 05:36 WBC 23.8 H RBC 4.47 Hgb 13.9 Hct 43.2 MCV 96.6 MCH 31.1 MCHC 32.2 RDW 11.7 Plt Count 419 H MPV 9.5 Immature Gran % (Auto) Cancelled Neut % (Auto) Cancelled Lymph % (Auto) Cancelled Runnels % (Auto) Cancelled Eos % (Auto) Cancelled Baso % (Auto) Cancelled Lymph # (Auto) Cancelled [place]els # (Auto) Cancelled Eos # (Auto) Cancelled Baso # (Auto) Cancelled Abs Immat Gran (auto) Cancelled Absolute Neuts (auto) Cancelled Absolute Nucleated RBC 0.000 Nucleated RBC % (auto) 0.0 Neutrophils % (Manual) 83 H Band Neutrophils % 4 Lymphocytes % (Manual) 3 L Monocytes % (Manual) 5 Metamyelocytes % 2 Myelocytes % 3 Abs Neuts (Manual) 20.7 H Lymphocytes # (Manual) 0.7 Monocytes # (Manual) 1.2 Metamyelocytes # 0.5 Myelocytes # 0.7 Platelet Estimate NORMAL Plt Morphology Comment NORMAL RBC Morphology NORMAL Sodium 134 L Potassium 5.0 Chloride 88 L Carbon Dioxide 39 H Anion Gap 12 BUN 26 H Creatinine 0.55 Estim Creat Clear Calc 100.6 Estimated GFR > 60 Random Glucose 98 Calcium 8.8 Microbiology Microbiology Results: Microbiology 11/08/20 09:03 Blood - Venous Blood Culture - Preliminary No growth after 48 hours. 11/08/20 08:13 Blood - Venous Blood Culture - Preliminary No growth after 48 hours. 11/08/20 10:08 Urine clean catch - Clean Catch Midstream Urine Culture - Final Review of Systems Review of Systems Yes all other systems are reviewed and are negative Cardiovascular: Reports dyspnea Respiratory: Reports cough (frequent .) and Reports dyspnea Musculoskeletal: Reports abnormal gait, Reports muscle weakness and Reports othe r (Generalized weakness.) Reports abnormal gait, Reports focal weakness (Chronic left syed paresis.) and Reports tremor(s) Physical Exam Vital Signs: Vital Signs: Last Vital Signs Temp 98.0 F 11/12/20 08:00 Pulse 84 11/12/20 08:00 Resp 20 11/12/20 08:00 BP 127/58 L 11/12/20 08:00 Pulse Ox 96 11/12/20 08:00 Body Mass Index 21.3 Const: Other: Chronically sick, and currently seems to be deconditioned General: comfortable, no acute distress, alert and awake Or ientation/consciousness: patient oriented x3 HENMT: Head: Yes normal to inspection General nose exam: No nasal polyps present and No nasal discharge present Face and sinus: Yes sinuses nontender Mouth: oropharynx normal Throat: Yes posterior oropharynx normal Eyes: General: appearance normal, both eyes and all related structures Neck: Neck: Yes normal visual inspection, Yes no lymphadenopathy, Yes trachea midline and Yes no JVD Thyroid: Thyroid normal Chest: Chest palpation & inspection: normal inspection of the chest and normal palpation of entire chest wall Resp: Effort & Inspection: prolonged expiratory phase Auscultation: crackles (A few fine crackles over the basilar areas) and diminished lung sounds Percussion: percussion normal Cardio: Palpation: normal PMI Rate: regular rate Heart sounds: no gallops and no murmurs GI: Palpation (GI): Soft to palpation, nontender, hepatosplenomegaly present and no masses Auscultation: normal bowel sounds Back/Spine/Pelvis: Thoracic/Lumbar Spine: thoracic and lumbar spine normal to inspection Skin: General skin exam: no rashes or lesions noted Neuro: General: patient oriented x3 and No no focal motor deficits (Has chronic left hemiparesis and impaired gait) Cranial nerves: Yes CN's II-XII intact bilaterally Extrem: General: Yes normal to inspection, Yes no clubbing, cyanosis or edema, Yes no calf tenderness and Yes venous stasis dermatitis Psych: Speech and movement: Normal speech and movement present Assessment and Plan Assessment and plan (1) Asthma exacerbation in COPD: Problem details: Acute exacerbation caused by acute respiratory infection, improving Continue the present medical treatment. OK to wean off steroids , may change to Predniosne 40 mg po daily for afew days , then reduce by 10 mg every five days , MAY CHNAGE ABs TO PO ROUTE . Status: Acute (2) Acute respiratory failure: Problem details: Acute on chronic respiratory failure mainly due to hypoxemia and increased O2 requirement . O2 requirement is increased . may be having micro atelectasis of basilar areas . CHEST CT SCAN : OF 11/11 REVIEWED , NO CONSOLIDATION , THICKENED BRONCHIAL WALL AND MICRO DENSITIES C/W MICRO ATELETASES . ( PART OF CHRONIC BRONCHITIS.COPD ) OK TO WEAN DOWN ON FIO2 , GOAL O2 SAT 90 % Status: Acute Time Spent With Patient Time: Total time spent is greater than 50% in coordination of care (as documented) at patient's floor/unit and/or counseling patient: Time with patient: 15 - 24 minutes
--- NOTE | 2020-11-12 11:34 | MHC.CM.PN ---
pt agreeable to pts recommendation for str referrals made to [facility] who pt has been in past and [facility] per rounds dc later next week
--- NOTE | 2020-11-12 12:57 | HO.PM.IMPN ---
Subjective Subjective Date of Service: 11/12/20 Interval History: f/u respiratory failure/pna/new onset atrial fibrillation Increasing oxygen requirement compared to yesterday Continues to feel sob, have cough No overnight events Constitutional Constitutional: Denies chills and Denies fever(s) Cardiovascular Cardiovascular: Denies chest pain and Reports dyspnea Respiratory Respiratory: Reports cough and Reports dyspnea Gastrointestinal Gastrointestinal: Denies abdominal pain Physical Exam Vital Signs: Vital Signs: Last Vital Signs Temp 98.5 F 11/12/20 11:43 Pulse 69 11/12/20 11:43 Resp 22 H 11/12/20 11:43 BP 128/60 11/12/20 11:43 Pulse Ox 91 L 11/12/20 11:43 Body Mass Index 21.3 Const: Nutritional Appearance: well nourished Orientation/consciousness: patient oriented x3 HENMT: Head: Yes normocephalic and Yes atraumatic Eyes: Sclerae: sclerae normal Chest: Chest palpation & inspection: normal inspection of the chest Resp: Other: better air entry , no wheezing Cardio: Rate: regular rate Rhythm: regular rhythm GI: Palpation (GI): Soft to palpation and nontender Skin: General skin exam: no rashes or lesions noted Neuro: General: patient oriented x3 Cranial nerves: Yes CN's II-XII intact bilaterally and Yes Bilaterally intact EOM present Extrem: Other: dry skin b/l lower extremities, no edema Objective Data Current Medications Generic Name Dose Route Start Last Admin Trade Name Freq PRN Reason Stop Dose Admin Acetaminophen 650 mg 11/08/20 14:25 Acetaminophen 325 Mg Tablet PO Q6H PRN Pain, Mild (Pain Scale 1-3) Apixaban 5 mg 11/10/20 21:00 11/12/20 09:12 Apixaban 5 Mg Tablet PO 5 mg BID VIANEY Administration Baclofen 20 mg 11/08/20 21:00 11/12/20 09:12 Baclofen 20 Mg Tablet PO 20 mg BID VIANEY Administration Diltiazem HCl 120 mg 11/10/20 09:00 11/12/20 09:12 Diltiazem Hcl Cd 120 Mg Cap.Er.Deg PO 120 mg DAILY VIANEY Administration Protocol Diphenhydramine HCl 25 mg 11/08/20 23:39 11/09/20 21:57 Diphenhydramine Hcl 25 Mg Tablet PO 25 mg BEDTIME PRN Administration Insomnia Divalproex Sodium 250 mg 11/08/20 21:00 11/12/20 09:12 Divalproex Sodium 250 Mg Tablet.Dr PO 250 mg BID VIANEY Administration Doxycycline Hyclate 100 mg 11/11/20 21:00 11/12/20 09:13 Doxycycline Hyclate 100 Mg Tablet PO 100 mg BID VIANEY Administration Dronedarone 400 mg 11/10/20 21:00 11/12/20 09:12 Dronedarone Hcl 400 Mg Tablet PO 400 mg BID VIANEY Administration Guaifenesin 1,200 mg 11/11/20 21:00 11/12/20 09:12 Guaifenesin [place] 600 Mg Tab.Er.12h PO 1,200 mg BID VIANEY Administration Ceftriaxone Sodium 1 gm/ 50 mls @ 100 mls/hr 11/09/20 09:00 11/12/20 10:27 Sodium Chloride IV Infused Q24H VIANEY Infusion Ipratropium [place] 0.5 mg 11/08/20 16:00 11/12/20 07:45 Ipratropium [place] 0.5 Mg/2.5 Ml Solution INHALE 0.5 mg RQ4H WHILE AWAKE VIANEY Administration Levalbuterol HCl 1.25 mg 11/08/20 16:00 11/12/20 07:45 Levalbuterol Hcl 1.25 Mg/0.5 Ml Vial.Neb INHALE 1.25 mg RQ4H WHILE AWAKE VIANEY Administration Levalbuterol HCl 1.25 mg 11/09/20 05:37 Levalbuterol Hcl 1.25 Mg/0.5 Ml Vial.Neb INHALE Q3H PRN Shortness of Breath/Wheezing Methylprednisolone Sodium Succinate 40 mg 11/11/20 21:00 11/12/20 09:13 Methylprednisolone Sod Succ 40 Mg/Ml Vial IVPUSH 40 mg BID VIANEY Administration Nicotine 14 mg 11/08/20 14:30 11/12/20 09:13 Nicotine 14 Mg Patch.Td24 TRANSDERMA 14 mg DAILY VIANEY Administration Pharmacy Consult 1 each 11/08/20 10:07 Consult Rx Perform Med Rec MISCELLANE ONCE PRN Consult order Sodium Chloride 3 ml 11/08/20 16:00 11/12/20 09:13 0.9 % Sodium Chloride Flush 3 Ml Syringe IVFLUSH 3 ml QSHIFT VIANEY Administration Labs CBC & Chem 7: 11/12/20 05:36 11/12/20 05:36 Microbiology Microbiology Results: Microbiology 11/08/20 09:03 Blood - Venous Blood Culture - Preliminary No growth after 48 hours. 11/08/20 08:13 Blood - Venous Blood Culture - Preliminary No growth after 48 hours. 11/08/20 10:08 Urine clean catch - Clean Catch Midstream Urine Culture - Final Assessment and Plan (1) Paroxysmal atrial flutter: Status: Acute (2) Acute respiratory failure: Problem details: Acute on chronic respiratory failure mainly due to hypoxemia and increased O2 requirement . O2 requirement is increased . may be having micro atelectasis of basilar areas . CHEST CT SCAN : OF 11/11 REVIEWED , NO CONSOLIDATION , THICKENED BRONCHIAL WALL AND MICRO DENSITIES C/W MICRO ATELETASES . ( PART OF CHRONIC BRONCHITIS.COPD ) OK TO WEAN DOWN ON FIO2 , GOAL O2 SAT 90 % Status: Acute (3) Pneumonia: Problem details: Patient has pneumonia right lower lobe and left base, improving with treatment Continue the present antibiotic regimen . Status: Acute Assessment and Plan: This is a 60 yo F with a PMH of CVA with resultant L hemiplegia, active tobacco use (but denies formal COPD diagnosis), seizure disorder on depakote who presents to the hospital with progressive SOB and cough over the last 7-10 days and is now being admitted for sepsis and acute respiratory failure with hyopxia secondary to COPD (undiagnosed) / pneumonia, possibly CHF as well. 1. Sepsis secondary to pneumonia / COPD + acute respiratory failure with hypoxia + chronic resp failure with O2 2L at night O2 requirements remain increased - 12L with oximizer, continue oxygen with O2 goals 88-92; wean o2 as tolerated -continue with Rocephin/Doxy (will change doxy to PO) - day #5 -BCx neg to date 2. Acute COPD exacerbation / Pneumonia suspect give her history of tobacco use, she has undiagnosed COPD CT chest 11/11 showing airway impaction, volume loss suggestive of atelectasis secondary to inflammatory process. WBC continues to be elevated, likely due to IV steroids -Change IV steroids, can likely change to PO tomorrow -antibiotics as above -continue scheduled updrafts -pulmonary following 3. A. Fib/flutter with RVR Currently in NSR. Seen by cardiology -continue cardizem, multaq -continue AC with Eliquis 5mg BID 4. Acute CHF possibly diastolic, right heart failure, poor quality echo from 11/09 but LVEF appears preserved BNP increased, although does not appear to be fluid overloaded on exam -will hold off on further diuresis at this time 5. History of CVA LDL 77, not on any statins 5. History of seizures continue Depakote 6. Tobacco use Disorder NRT with patch cessation as been strongly encouraged 7. Generalized weakness PT following, home with PT versus inpatient pulmonary rehab depending on progress during hospitalization Full Code DVT pptx, eliquis Reports her sister is HCP Attending: Dr. hernandes
--- NOTE | 2020-11-12 15:49 | PM.PNCARD ---
Subjective Subjective Date of Service: 11/12/20 Principal diagnosis: copd/pneumonia, atrial flutter Interval history: Patient with no overnight atrial flutter. Continues to require high levels oxygen but her pulmonary status is slowly improving. She says her shortness of breath is marginally better. She has been getting out of bed to chair. No issues with Multaq therapy Review of Systems Constitutional: Reports no additional constitutional complaints Cardiovascular: Reports no additional cardiovascular complaints and Reports dyspnea Respiratory: Reports dyspnea Gastrointestinal: Reports no additional gastrointestinal complaints Genitourinary: Reports no additional female genitourinary complaints Reports system reviewed and no additional complaints, except as documented Psychiatric: Reports no additional psychiatric complaints Endocrine: Reports no additional endocrine complaints Physical Exam Vital Signs: Last Vital Signs Temp 97.3 F 11/12/20 15:23 Pulse 67 11/12/20 15:23 Resp 19 11/12/20 15:23 BP 113/59 L 11/12/20 15:23 Pulse Ox 94 11/12/20 15:23 Body Mass Index 21.3 Const General: cooperative, comfortable and acute distress mild and respiratory Nutritional Appearance: thin Orientation/consciousness: patient oriented x3 Neck Neck: Yes trachea midline and Yes no JVD Resp Effort & Inspection: normal respiratory effort Auscultation: wheezes, diminished lung sounds and other (Air entry appears to have improved) Cardio Jugular venous distension: no JVD Rate: regular rate Rhythm: regular rhythm Heart sounds: S1 normal heart sound present and S2 normal heart sound present Skin General skin exam: no rashes or lesions noted Neuro General: patient oriented x3 Extrem General: Yes no clubbing, cyanosis or edema Results Labs and Meds Result diagrams: 11/12/20 05:36 11/12/20 05:36 Lab results: Laboratory Results - last 24 hr 11/12/20 11/12/20 05:36 05:36 WBC 23.8 H RBC 4.47 Hgb 13.9 Hct 43.2 MCV 96.6 MCH 31.1 MCHC 32.2 RDW 11.7 Plt Count 419 H MPV 9.5 Immature Gran % (Auto) Cancelled Neut % (Auto) Cancelled Lymph % (Auto) Cancelled [place] % (Auto) Cancelled Eos % (Auto) Cancelled Baso % (Auto) Cancelled Lymph # (Auto) Cancelled [place] # (Auto) Cancelled Eos # (Auto) Cancelled Baso # (Auto) Cancelled Abs Immat Gran (auto) Cancelled Absolute Neuts (auto) Cancelled Absolute Nucleated RBC 0.000 Nucleated RBC % (auto) 0.0 Neutrophils % (Manual) 83 H Band Neutrophils % 4 Lymphocytes % (Manual) 3 L Monocytes % (Manual) 5 Metamyelocytes % 2 Myelocytes % 3 Abs Neuts (Manual) 20.7 H Lymphocytes # (Manual) 0.7 Monocytes # (Manual) 1.2 Metamyelocytes # 0.5 Myelocytes # 0.7 Platelet Estimate NORMAL Plt Morphology Comment NORMAL RBC Morphology NORMAL Sodium 134 L Potassium 5.0 Chloride 88 L Carbon Dioxide 39 H Anion Gap 12 BUN 26 H Creatinine 0.55 Estim Creat Clear Calc 100.6 Estimated GFR > 60 Random Glucose 98 Calcium 8.8 Progress Note: A&P Assessment and plan (1) Paroxysmal atrial flutter: Status: Acute Assessment and Plan: Paroxysmal atrial flutter which appears to have been suppressed on Cardizem or Multaq therapy. She is tolerating this well. Continue the same. Continue full oral anticoagulation Eliquis. Will follow up as outpatient with Holter monitor. Will sign of the case at this point. (2) Acute respiratory failure: Problem details: Acute on chronic respiratory failure mainly due to hypoxemia and increased O2 requirement . O2 requirement is increased . may be having micro atelectasis of basilar areas . CHEST CT SCAN : OF 11/11 REVIEWED , NO CONSOLIDATION , THICKENED BRONCHIAL WALL AND MICRO DENSITIES C/W MICRO ATELETASES . ( PART OF CHRONIC BRONCHITIS.COPD ) OK TO WEAN DOWN ON FIO2 , GOAL O2 SAT 90 % Status: Acute Assessment and Plan: Acute respiratory failure secondary to COPD exacerbation with underlying significant in that [place] parenchymal disease. Continue current medical management. Complete smoking cessation was advised. Patient does have RV enlargement and dysfunction related to pulmonary disease consistent with cor pulmonale. Will follow up in the clinic in 4 weeks time. Will sign of the case Fall Risk Details Current Medications: Current Medications Generic Name Dose Route Start Last Admin Trade Name Freq PRN Reason Stop Dose Admin Acetaminophen 650 mg 11/08/20 14:25 Acetaminophen 325 Mg Tablet PO Q6H PRN Pain, Mild (Pain Scale 1-3) Apixaban 5 mg 11/10/20 21:00 11/12/20 09:12 Apixaban 5 Mg Tablet PO 5 mg BID VIANEY Administration Baclofen 20 mg 11/08/20 21:00 11/12/20 09:12 Baclofen 20 Mg Tablet PO 20 mg BID VIANEY Administration Diltiazem HCl 120 mg 11/10/20 09:00 11/12/20 09:12 Diltiazem Hcl Cd 120 Mg Cap.Er.Deg PO 120 mg DAILY VIANEY Administration Protocol Diphenhydramine HCl 25 mg 11/08/20 23:39 11/09/20 21:57 Diphenhydramine Hcl 25 Mg Tablet PO 25 mg BEDTIME PRN Administration Insomnia Divalproex Sodium 250 mg 11/08/20 21:00 11/12/20 09:12 Divalproex Sodium 250 Mg Tablet.Dr PO 250 mg BID VIANEY Administration Doxycycline Hyclate 100 mg 11/11/20 21:00 11/12/20 09:13 Doxycycline Hyclate 100 Mg Tablet PO 100 mg BID VIANEY Administration Dronedarone 400 mg 11/10/20 21:00 11/12/20 09:12 Dronedarone Hcl 400 Mg Tablet PO 400 mg BID VIANEY Administration Guaifenesin 1,200 mg 11/11/20 21:00 11/12/20 09:12 Guaifenesin [place] 600 Mg Tab.Er.12h PO 1,200 mg BID VIANEY Administration Ceftriaxone Sodium 1 gm/ 50 mls @ 100 mls/hr 11/09/20 09:00 11/12/20 10:27 Sodium Chloride IV Infused Q24H VIANEY Infusion Ipratropium [place] 0.5 mg 11/08/20 16:00 11/12/20 15:13 Ipratropium [place] 0.5 Mg/2.5 Ml Solution INHALE 0.5 mg RQ4H WHILE AWAKE VIANEY Administration Levalbuterol HCl 1.25 mg 11/08/20 16:00 11/12/20 15:13 Levalbuterol Hcl 1.25 Mg/0.5 Ml Vial.Neb INHALE 1.25 mg RQ4H WHILE AWAKE VIANEY Administration Levalbuterol HCl 1.25 mg 11/09/20 05:37 Levalbuterol Hcl 1.25 Mg/0.5 Ml Vial.Neb INHALE Q3H PRN Shortness of Breath/Wheezing Methylprednisolone Sodium Succinate 40 mg 11/11/20 21:00 11/12/20 09:13 Methylprednisolone Sod Succ 40 Mg/Ml Vial IVPUSH 40 mg BID VIANEY Administration Nicotine 14 mg 11/08/20 14:30 11/12/20 09:13 Nicotine 14 Mg Patch.Td24 TRANSDERMA 14 mg DAILY VIANEY Administration Pharmacy Consult 1 each 11/08/20 10:07 Consult Rx Perform Med Rec MISCELLANE ONCE PRN Consult order Sodium Chloride 3 ml 11/08/20 16:00 11/12/20 09:13 0.9 % Sodium Chloride Flush 3 Ml Syringe IVFLUSH 3 ml QSHIFT VIANEY Administration Time Spent With Patient Time: Total time spent is greater than 50% in coordination of care (as documented) at patient's floor/unit and/or counseling patient: Time with patient: 25 - 35 minutes
[2020-11-13] VITALS (11 sets, daily range): BP systolic 122–147; BP diastolic 59–69; PULSE 64–83; RESP 18–19; TEMP 36.3–36.6; O2SAT 90–97
[2020-11-13] MEDS: Ipratropium Bromide 0.5 MG/2.5 ML SOLUTION INHALE ×4 (08:07→19:42)
[2020-11-13] MEDS: dilTIAZem HCL CD 120 MG CAP.ER.DEG PO (08:53)
[2020-11-13] MEDS: Apixaban 5 MG TABLET PO ×2 (08:54→22:00)
[2020-11-13] MEDS: Dronedarone HCl 400 MG TABLET PO ×2 (08:54→21:59)
[2020-11-13] MEDS: guaiFENesin LA 600 MG TAB.ER.12H 1200 MG PO ×2 (08:54→22:00)
[2020-11-13] MEDS: Baclofen 20 MG TABLET PO ×2 (08:54→22:00)
[2020-11-13] MEDS: cefTRIAXone sodium 1 GM in 0.9 % Sodium Chloride 50 ML IV (08:54)
[2020-11-13] MEDS: Nicotine 14 MG PATCH.TD24 TRANSDERMA (08:54)
[2020-11-13] MEDS: Divalproex Sodium 250 MG TABLET.DR PO ×2 (08:54→22:00)
[2020-11-13] MEDS: 0.9 % Sodium Chloride Flush 3 ML SYRINGE IVFLUSH ×3 (08:55→23:55)
[2020-11-13] MEDS: methylPREDNISolone Sod Succ 40 MG/ML VIAL IVPUSH ×2 (08:55→21:59)
--- NOTE | 2020-11-13 09:47 | PM.PNPUL ---
Subjective Subjective Date of Service: 11/13/20 Principal diagnosis: copd/pneumonia, atrial flutter Interval history: This 60 years old female with advanced chronic obstructive pulmonary disease who was admitted because of acute exacerbation with acute respiratory failure, Initially we thought she had pneumonia right lower lobe for which she has been treated, CT scan of the lung shows that she has advanced chronic airway disorder with bronchial lay thickening and microatelectasis he is in the basilar areas. She is slowly improving. Today claims that she feels better. FiO2 still 7 L/minute but could be reduced. She has significant leukocytosis which is most likely due to steroids. Objective Data Labs CBC & Chem 7: 11/12/20 05:36 11/12/20 05:36 Microbiology Microbiology Results: Microbiology 11/08/20 09:03 Blood - Venous Blood Culture - Preliminary No growth after 48 hours. 11/08/20 08:13 Blood - Venous Blood Culture - Preliminary No growth after 48 hours. 11/08/20 10:08 Urine clean catch - Clean Catch Midstream Urine Culture - Final Review of Systems Review of Systems Yes all other systems are reviewed and are negative Constitutional: Reports lethargy and Reports weakness Reports system reviewed and no additional complaints, except as documented Respiratory: Reports as per HPI Reports Abnormal speech present and Reports weakness Physical Exam Vital Signs: Vital Signs: Last Vital Signs Temp 97.3 F 11/13/20 07:21 Pulse 78 11/13/20 08:53 Resp 19 11/13/20 07:21 BP 122/69 11/13/20 08:53 Pulse Ox 96 11/13/20 07:21 Body Mass Index 21.3 Const: Other: Chronically sick looking, moderately dyspneic, but a relatively comfortable today General: comfortable, no acute distress, alert and awake Orientation/consciousness: patient oriented x3 HENMT: Head: Yes normal to inspection General nose exam: No nasal polyps present and No nasal discharge present Face and sinus: Yes sinuses nontender Mouth: oropharynx normal Throat: Yes posterior oropharynx normal Eyes: General: appearance normal, both eyes and all related structures Neck: Neck: Yes normal visual inspection, Yes no lymphadenopathy, Yes trachea midline and Yes no JVD Thyroid: Thyroid normal Chest: Chest palpation & inspection: normal inspection of the chest and normal palpation of entire chest wall Resp: Effort & Inspection: prolonged expiratory phase Auscultation: no crackles, no rales, no wheezes and diminished lung sounds Cardio: Palpation: normal PMI Rate: regular rate Rhythm: regular rhythm Heart sounds: no gallops and no murmurs GI: Palpation (GI): Soft to palpation, nontender, No hepatosplenomegaly present and no masses Auscultation: normal bowel sounds Back/Spine/Pelvis: Thoracic/Lumbar Spine: thoracic and lumbar spine normal to inspection Skin: General skin exam: no rashes or lesions noted Neuro: General: patient oriented x3, No gait normal (Gait is impaired due to marked generalized weakness and left-sided hemipare) and no focal motor deficits Cranial nerves: Yes CN's II-XII intact bilaterally Speech: Abnormal speech present Extrem: General: Yes normal to inspection, Yes no clubbing, cyanosis or edema, Yes no calf tenderness and Yes venous stasis dermatitis Psych: Speech and movement: Normal speech and movement present Assessment and Plan Assessment and plan (1) Tobacco use: Problem details: SMOKING CESSATION , PROGRAM .ON NICOTINE PATCH , Status: Acute (2) Asthma exacerbation in COPD: Problem details: Acute exacerbation caused by acute respiratory infection, improving Continue the present medical treatment. OK to wean off steroids , may change to Predniosne 40 mg po daily for afew days , then reduce by 10 mg every five days , MAY CHNAGE ABs TO PO ROUTE . Status: Acute (3) Acute respiratory failure: Problem details: Acute on chronic respiratory failure mainly due to hypoxemia and increased O2 requirement . O2 requirement is increased . may be having micro atelectasis of basilar areas . CHEST CT SCAN : OF 11/11 REVIEWED , NO CONSOLIDATION , THICKENED BRONCHIAL WALL AND MICRO DENSITIES C/W MICRO ATELETASES . ( PART OF CHRONIC BRONCHITIS.COPD ) OK TO WEAN DOWN ON FIO2 , GOAL O2 SAT 90 % Status: Acute Assessment and Plan: Patient is quite weak and deconditioned at this time. I discussed with her that she may need a short-term rehab program, and she seems to be at agree about. Stressed that she should never go back to smoking. Time Spent With Patient Time: Total time spent is greater than 50% in coordination of care (as documented) at patient's floor/unit and/or counseling patient: Time with patient: 15 - 24 minutes
--- NOTE | 2020-11-13 10:04 | HO.PM.IMPN ---
Subjective Subjective Date of Service: 11/13/20 Interval History: feeling better Cardiovascular Cardiovascular: Reports no additional cardiovascular complaints Gastrointestinal Gastrointestinal: Reports no additional gastrointestinal complaints Physical Exam Vital Signs: Vital Signs: Last Vital Signs Temp 97.3 F 11/13/20 07:21 Pulse 78 11/13/20 08:53 Resp 19 11/13/20 07:21 BP 122/69 11/13/20 08:53 Pulse Ox 96 11/13/20 07:21 Body Mass Index 21.3 General: AO X 3, no acute distress Resp: CTA bilateral CVS: S1,S2,RRR GI: soft, non tender, non distended Neuro: motor grossly intact Psych: appropriate affect Objective Data Current Medications Generic Name Dose Route Start Last Admin Trade Name Freq PRN Reason Stop Dose Admin Acetaminophen 650 mg 11/08/20 14:25 Acetaminophen 325 Mg Tablet PO Q6H PRN Pain, Mild (Pain Scale 1-3) Apixaban 5 mg 11/10/20 21:00 11/13/20 08:54 Apixaban 5 Mg Tablet PO 5 mg BID VIANEY Administration Baclofen 20 mg 11/08/20 21:00 11/13/20 08:54 Baclofen 20 Mg Tablet PO 20 mg BID VIANEY Administration Diltiazem HCl 120 mg 11/10/20 09:00 11/13/20 08:53 Diltiazem Hcl Cd 120 Mg Cap.Er.Deg PO 120 mg DAILY VIANEY Administration Protocol Diphenhydramine HCl 25 mg 11/08/20 23:39 11/09/20 21:57 Diphenhydramine Hcl 25 Mg Tablet PO 25 mg BEDTIME PRN Administration Insomnia Divalproex Sodium 250 mg 11/08/20 21:00 11/13/20 08:54 Divalproex Sodium 250 Mg Tablet.Dr PO 250 mg BID VIANEY Administration Doxycycline Hyclate 100 mg 11/11/20 21:00 11/13/20 08:53 Doxycycline Hyclate 100 Mg Tablet PO 100 mg BID VIANEY Administration Dronedarone 400 mg 11/10/20 21:00 11/13/20 08:54 Dronedarone Hcl 400 Mg Tablet PO 400 mg BID VIANEY Administration Guaifenesin 1,200 mg 11/11/20 21:00 11/13/20 08:54 Guaifenesin [place] 600 Mg Tab.Er.12h PO 1,200 mg BID VIANEY Administration Ceftriaxone Sodium 1 gm/ 50 mls @ 100 mls/hr 11/09/20 09:00 11/13/20 09:53 Sodium Chloride IV Infused Q24H VIANEY Infusion Ipratropium [place] 0.5 mg 11/08/20 16:00 11/13/20 08:07 Ipratropium [place] 0.5 Mg/2.5 Ml Solution INHALE 0.5 mg RQ4H WHILE AWAKE VIANEY Administration Levalbuterol HCl 1.25 mg 11/08/20 16:00 11/13/20 08:07 Levalbuterol Hcl 1.25 Mg/0.5 Ml Vial.Neb INHALE 1.25 mg RQ4H WHILE AWAKE VIANEY Administration Levalbuterol HCl 1.25 mg 11/09/20 05:37 Levalbuterol Hcl 1.25 Mg/0.5 Ml Vial.Neb INHALE Q3H PRN Shortness of Breath/Wheezing Methylprednisolone Sodium Succinate 40 mg 11/11/20 21:00 11/13/20 08:55 Methylprednisolone Sod Succ 40 Mg/Ml Vial IVPUSH 40 mg BID VIANEY Administration Nicotine 14 mg 11/08/20 14:30 11/13/20 08:54 Nicotine 14 Mg Patch.Td24 TRANSDERMA 14 mg DAILY VIANEY Administration Pharmacy Consult 1 each 11/08/20 10:07 Consult Rx Perform Med Rec MISCELLANE ONCE PRN Consult order Sodium Chloride 3 ml 11/08/20 16:00 11/13/20 08:55 0.9 % Sodium Chloride Flush 3 Ml Syringe IVFLUSH 3 ml QSHIFT VIANEY Administration Labs CBC & Chem 7: 11/12/20 05:36 11/12/20 05:36 Microbiology Microbiology Results: Microbiology 11/08/20 09:03 Blood - Venous Blood Culture - Preliminary No growth after 48 hours. 11/08/20 08:13 Blood - Venous Blood Culture - Preliminary No growth after 48 hours. 11/08/20 10:08 Urine clean catch - Clean Catch Midstream Urine Culture - Final Assessment and Plan (1) Paroxysmal atrial flutter: Status: Acute (2) Acute respiratory failure: Problem details: Acute on chronic respiratory failure mainly due to hypoxemia and increased O2 requirement . O2 requirement is increased . may be having micro atelectasis of basilar areas . CHEST CT SCAN : OF 11/11 REVIEWED , NO CONSOLIDATION , THICKENED BRONCHIAL WALL AND MICRO DENSITIES C/W MICRO ATELETASES . ( PART OF CHRONIC BRONCHITIS.COPD ) OK TO WEAN DOWN ON FIO2 , GOAL O2 SAT 90 % Status: Acute (3) Pneumonia: Problem details: Patient has pneumonia right lower lobe and left base, improving with treatment Continue the present antibiotic regimen . Status: Acute Assessment and Plan: This is a 60 yo F with a PMH of CVA with resultant L hemiplegia, active tobacco use (but denies formal COPD diagnosis), seizure disorder on depakote who presents to the hospital with progressive SOB and cough over the last 7-10 days and is now being admitted for sepsis and acute respiratory failure with hyopxia secondary to COPD (undiagnosed) / pneumonia, possibly CHF as well. Sepsis secondary to pneumonia / COPD + acute respiratory failure with hypoxia + chronic resp failure with O2 2L at night O2 requirements improved to 7L with oximizer, continue oxygen with O2 goals 88-92; wean o2 as tolerated -continue with Rocephin/Doxy (will change doxy to PO) - day #6 -BCx neg to date Acute COPD exacerbation / Pneumonia suspect give her history of tobacco use, she has undiagnosed COPD CT chest 11/11 showing airway impaction, volume loss suggestive of atelectasis secondary to inflammatory process. WBC continues to be elevated, likely due to IV steroids A. Fib/flutter with RVR Currently in NSR. Seen by cardiology -continue minerva thompson -continue AC with Eliquis 5mg BID Acute CHF possibly diastolic, right heart failure, poor quality echo from 11/09 but LVEF appears preserved BNP increased, although does not appear to be fluid overloaded on exam -will hold off on further diuresis at this time History of CVA LDL 77, not on any statins History of seizures continue Depakote Tobacco use Disorder NRT with patch cessation as been strongly encouraged Generalized weakness PT following, home with PT versus inpatient pulmonary rehab depending on progress during hospitalization
[2020-11-13] MEDS: diphenhydrAMINE HCL 25 MG TABLET PO (22:01)
[2020-11-14] VITALS (11 sets, daily range): BP systolic 118–142; BP diastolic 56–69; PULSE 68–88; RESP 16–20; TEMP 35.9–36.9; O2SAT 90–95
[2020-11-14] MEDS: Ipratropium Bromide 0.5 MG/2.5 ML SOLUTION INHALE ×4 (07:21→20:45)
--- NOTE | 2020-11-14 09:42 | HO.PM.IMPN ---
Subjective Subjective Date of Service: 11/14/20 Interval History: unchanged Cardiovascular Cardiovascular: Reports no additional cardiovascular complaints Respiratory Respiratory: Reports no additional respiratory complaints Physical Exam Vital Signs: Vital Signs: Last Vital Signs Temp 96.7 F L 11/14/20 08:00 Pulse 68 11/14/20 08:00 Resp 16 11/14/20 08:00 BP 121/69 11/14/20 08:00 Pulse Ox 95 11/14/20 08:00 Body Mass Index 21.3 General: AO X 3, no acute distress Resp: rhonchi CVS: S1,S2,RRR GI: soft, non tender, non distended Neuro: motor grossly intact Psych: appropriate affect Objective Data Current Medications Generic Name Dose Route Start Last Admin Trade Name Freq PRN Reason Stop Dose Admin Acetaminophen 650 mg 11/08/20 14:25 Acetaminophen 325 Mg Tablet PO Q6H PRN Pain, Mild (Pain Scale 1-3) Apixaban 5 mg 11/10/20 21:00 11/13/20 22:00 Apixaban 5 Mg Tablet PO 5 mg BID VIANEY Administration Baclofen 20 mg 11/08/20 21:00 11/13/20 22:00 Baclofen 20 Mg Tablet PO 20 mg BID VIANEY Administration Diltiazem HCl 120 mg 11/10/20 09:00 11/13/20 08:53 Diltiazem Hcl Cd 120 Mg Cap.Er.Deg PO 120 mg DAILY VIANEY Administration Protocol Diphenhydramine HCl 25 mg 11/08/20 23:39 11/13/20 22:01 Diphenhydramine Hcl 25 Mg Tablet PO 25 mg BEDTIME PRN Administration Insomnia Divalproex Sodium 250 mg 11/08/20 21:00 11/13/20 22:00 Divalproex Sodium 250 Mg Tablet.Dr PO 250 mg BID VIANEY Administration Doxycycline Hyclate 100 mg 11/11/20 21:00 11/13/20 22:00 Doxycycline Hyclate 100 Mg Tablet PO 100 mg BID VIANEY Administration Dronedarone 400 mg 11/10/20 21:00 11/13/20 21:59 Dronedarone Hcl 400 Mg Tablet PO 400 mg BID VIANEY Administration Guaifenesin 1,200 mg 11/11/20 21:00 11/13/20 22:00 Guaifenesin [place] 600 Mg Tab.Er.12h PO 1,200 mg BID VIANEY Administration Ceftriaxone Sodium 1 gm/ 50 mls @ 100 mls/hr 11/09/20 09:00 11/13/20 09:53 Sodium Chloride IV Infused Q24H VIANEY Infusion Ipratropium [place] 0.5 mg 11/08/20 16:00 11/14/20 07:21 Ipratropium [place] 0.5 Mg/2.5 Ml Solution INHALE 0.5 mg RQ4H WHILE AWAKE VIANEY Administration Levalbuterol HCl 1.25 mg 11/08/20 16:00 11/14/20 07:21 Levalbuterol Hcl 1.25 Mg/0.5 Ml Vial.Neb INHALE 1.25 mg RQ4H WHILE AWAKE VIANEY Administration Levalbuterol HCl 1.25 mg 11/09/20 05:37 Levalbuterol Hcl 1.25 Mg/0.5 Ml Vial.Neb INHALE Q3H PRN Shortness of Breath/Wheezing Methylprednisolone Sodium Succinate 40 mg 11/11/20 21:00 11/13/20 21:59 Methylprednisolone Sod Succ 40 Mg/Ml Vial IVPUSH 40 mg BID VIANEY Administration Nicotine 14 mg 11/08/20 14:30 11/13/20 08:54 Nicotine 14 Mg Patch.Td24 TRANSDERMA 14 mg DAILY VIANEY Administration Pharmacy Consult 1 each 11/08/20 10:07 Consult Rx Perform Med Rec MISCELLANE ONCE PRN Consult order Sodium Chloride 3 ml 11/08/20 16:00 11/13/20 23:55 0.9 % Sodium Chloride Flush 3 Ml Syringe IVFLUSH 3 ml QSHIFT VIANEY Administration Labs CBC & Chem 7: 11/12/20 05:36 11/12/20 05:36 Microbiology Microbiology Results: Microbiology 11/08/20 09:03 Blood - Venous Blood Culture - Final No growth after 5 days. 11/08/20 08:13 Blood - Venous Blood Culture - Final No growth after 5 days. 11/08/20 10:08 Urine clean catch - Clean Catch Midstream Urine Culture - Final Assessment and Plan (1) Paroxysmal atrial flutter: Status: Acute (2) Acute respiratory failure: Problem details: Acute on chronic respiratory failure mainly due to hypoxemia and increased O2 requirement . O2 requirement is increased . may be having micro atelectasis of basilar areas . CHEST CT SCAN : OF 11/11 REVIEWED , NO CONSOLIDATION , THICKENED BRONCHIAL WALL AND MICRO DENSITIES C/W MICRO ATELETASES . ( PART OF CHRONIC BRONCHITIS.COPD ) OK TO WEAN DOWN ON FIO2 , GOAL O2 SAT 90 % Status: Acute (3) Pneumonia: Problem details: Patient has pneumonia right lower lobe and left base, improving with treatment Continue the present antibiotic regimen . Status: Acute Assessment and Plan: This is a 60 yo F with a PMH of CVA with resultant L hemiplegia, active tobacco use (but denies formal COPD diagnosis), seizure disorder on depakote who presents to the hospital with progressive SOB and cough over the last 7-10 days and is now being admitted for sepsis and acute respiratory failure with hyopxia secondary to COPD (undiagnosed) / pneumonia, possibly CHF as well. Sepsis secondary to pneumonia / COPD + acute respiratory failure with hypoxia + chronic resp failure with O2 2L at night O2 requirements improved to 7L with oximizer, continue oxygen with O2 goals 88-92; wean o2 as tolerated, stable today, satting low 90s -continue with Rocephin/Doxy (will change doxy to PO) - day #7 -BCx neg to date Acute COPD exacerbation / Pneumonia suspect give her history of tobacco use, she has undiagnosed COPD CT chest 11/11 showing airway impaction, volume loss suggestive of atelectasis secondary to inflammatory process. WBC continues to be elevated, likely due to IV steroids A. Fib/flutter with RVR Currently in NSR. Seen by cardiology -continue minerva thompson -continue AC with Eliquis 5mg BID Acute CHF possibly diastolic, right heart failure, poor quality echo from 11/09 but LVEF appears preserved BNP increased, although does not appear to be fluid overloaded on exam -will hold off on further diuresis at this time History of CVA LDL 77, not on any statins History of seizures continue Depakote Tobacco use Disorder NRT with patch cessation as been strongly encouraged Generalized weakness PT following, home with PT versus inpatient pulmonary rehab depending on progress during hospitalization
[2020-11-14] MEDS: methylPREDNISolone Sod Succ 40 MG/ML VIAL IVPUSH ×2 (10:21→21:40)
[2020-11-14] MEDS: cefTRIAXone sodium 1 GM in 0.9 % Sodium Chloride 50 ML IV (10:21)
[2020-11-14] MEDS: Baclofen 20 MG TABLET PO ×2 (10:22→21:40)
[2020-11-14] MEDS: Dronedarone HCl 400 MG TABLET PO ×2 (10:22→21:40)
[2020-11-14] MEDS: Divalproex Sodium 250 MG TABLET.DR PO ×2 (10:22→21:40)
[2020-11-14] MEDS: dilTIAZem HCL CD 120 MG CAP.ER.DEG PO (10:22)
[2020-11-14] MEDS: Apixaban 5 MG TABLET PO ×2 (10:22→21:40)
[2020-11-14] MEDS: 0.9 % Sodium Chloride Flush 3 ML SYRINGE IVFLUSH ×3 (10:23→21:40)
[2020-11-14] MEDS: Nicotine 14 MG PATCH.TD24 TRANSDERMA (10:23)
[2020-11-14] MEDS: guaiFENesin LA 600 MG TAB.ER.12H 1200 MG PO ×2 (10:23→21:40)
[2020-11-14] MEDS: diphenhydrAMINE HCL 25 MG TABLET PO (21:43)
[2020-11-15] VITALS (7 sets, daily range): BP systolic 114–147; BP diastolic 57–66; PULSE 61–79; RESP 16–22; TEMP 36.3–36.8; O2SAT 90–94
[2020-11-15] MEDS: Ipratropium Bromide 0.5 MG/2.5 ML SOLUTION INHALE ×3 (08:05→15:23)
[2020-11-15] MEDS: Divalproex Sodium 250 MG TABLET.DR PO (08:59)
[2020-11-15] MEDS: dilTIAZem HCL CD 120 MG CAP.ER.DEG PO (08:59)
[2020-11-15] MEDS: guaiFENesin LA 600 MG TAB.ER.12H 1200 MG PO (09:00)
[2020-11-15] MEDS: Baclofen 20 MG TABLET PO (09:00)
[2020-11-15] MEDS: Dronedarone HCl 400 MG TABLET PO (09:00)
[2020-11-15] MEDS: Apixaban 5 MG TABLET PO (09:01)
[2020-11-15] MEDS: Nicotine 14 MG PATCH.TD24 TRANSDERMA (09:01)
[2020-11-15] MEDS: cefTRIAXone sodium 1 GM in 0.9 % Sodium Chloride 50 ML IV (09:01)
[2020-11-15] MEDS: methylPREDNISolone Sod Succ 40 MG/ML VIAL IVPUSH (09:02)
[2020-11-15] MEDS: 0.9 % Sodium Chloride Flush 3 ML SYRINGE IVFLUSH ×2 (09:02→15:57)
--- NOTE | 2020-11-15 11:51 | PM.DS ---
DS: Providers Provider Date of Service: 11/15/20 Date of admission: 11/08/20 11:45 Primary care physician: Miguelito Bearden MD Consults: 11/08/20 16:59 Consult to Cardiology Routine Consulting Provider: Eduardo Haro Reason for consultation: possible new-onset a. fib 11/09/20 06:34 Consult to Pulmonology Routine Consulting Provider: Eriberto Villareal Reason for consultation: Acute resp failure; COPD exacerbation DS: Diagnosis Discharge Diagnosis (1) Paroxysmal atrial flutter: Status: Acute (2) Acute respiratory failure: Status: Acute Problem details: Acute on chronic respiratory failure mainly due to hypoxemia and increased O2 requirement . O2 requirement is increased . may be having micro atelectasis of basilar areas . CHEST CT SCAN : OF 11/11 REVIEWED , NO CONSOLIDATION , THICKENED BRONCHIAL WALL AND MICRO DENSITIES C/W MICRO ATELETASES . ( PART OF CHRONIC BRONCHITIS.COPD ) OK TO WEAN DOWN ON FIO2 , GOAL O2 SAT 90 % (3) Pneumonia: Status: Acute Problem details: Patient has pneumonia right lower lobe and left base, improving with treatment Continue the present antibiotic regimen . (4) Asthma exacerbation in COPD: Status: Acute Problem details: Acute exacerbation caused by acute respiratory infection, improving Continue the present medical treatment. OK to wean off steroids , may change to Predniosne 40 mg po daily for afew days , then reduce by 10 mg every five days , MAY CHNAGE ABs TO PO ROUTE . (5) Atrial flutter with rapid ventricular response: Status: Acute (6) Sepsis: Status: Acute DS: Medications Discharge Medications Home Medications: Previous Rx's Medication Instructions Recorded diltiazem HCl 120 mg 120 mg PO BID 90 Days #180 cap 06/07/20 capsule,extended release 12 hr baclofen 20 mg tablet 20 mg PO BID #180 tab 06/11/20 divalproex 250 mg tablet,delayed 250 mg PO BID #180 tab 09/30/20 release albuterol sulfate 1 inh INHALATION Q4-6H PRN #1 ea 11/15/20 apixaban [Eliquis] 5 mg PO BID #0 tab 11/15/20 dronedarone [Multaq] 400 mg PO BID #0 tab 11/15/20 guaifenesin [Mucinex] 1,200 mg PO BID #0 tab 11/15/20 nicotine 14 mg TRANSDERMAL DAILY #0 ea 11/15/20 prednisone 40 mg PO DAILY #15 tab 11/15/20 tiotropium bromide [Spiriva with 1 cap INHALATION DAILY #1 inh 11/15/20 HandiHaler] DS: Summary Hospital Course Hospital Course: patient presented to the hospital with progressive SOB and cough over the last 7-10 days and was admitted for sepsis and acute respiratory failure with hyopxia secondary to COPD (undiagnosed) / pneumonia, and acute diastolic chf. she was treated with one week of ceftriaxone and doxycyline. she was given iv steroids and will continue short prednsione taper on discharge. course was complicated by aflutter with rvr. she was started on multaq and converted to NSR. she is on eliquis for anticoagulation. patient was slowly able to be weaned to 5L o2, saturating 92%. subjectively feeling much better. she is debilitated though and will be discharged to SNF for STR. Time Spent with Patient Time attestation: Total time spent providing and/or coordinating discharge services: Discharge coordination time: Greater than 30 minutes Physical Exam Vital Signs: Vital Signs: Last Vital Signs Temp 97.8 F 11/15/20 11:12 Pulse 65 11/15/20 11:30 Resp 16 11/15/20 11:12 BP 127/66 11/15/20 11:12 Pulse Ox 90 L 11/15/20 11:12 Body Mass Index 21.3 Other: Constitutional - Awake and Alert, No apparent distress Eyes - PERRLA, EOMI Cardiovascular - S1S2, RRR, No edema Respiratory - dim sounds Gastrointestinal - NT / ND; +BS; No rebound or guarding - No CVA tenderness Extremities - no calf tenderness bilaterally, no swelling Musculoskeletal - Normal inspection, normal ROM Skin - Warm/Dry Neurological - Alert & oriented x3, L-hemiplegia Psychological - Appropriate affect Discharge Plan Discharge Patient Disposition: Xfer SNF Referrals: Miguelito Bearden MD [Primary Care Provider] - Discharge Medications: New nicotine 14 mg/24 hr Patch 24 Hour 14 mg transdermal DAILY Qty: 0 RF: 0 Eliquis 5 mg Tablet 5 mg PO BID Qty: 0 RF: 0 Multaq 400 mg Tablet 400 mg PO BID Qty: 0 RF: 0 guaifenesin [Mucinex] 600 mg Tablet Extended Release 12hr 1,200 mg PO BID Qty: 0 RF: 0 prednisone 20 mg tablet 40 mg PO DAILY Qty: 15 RF: 0 albuterol sulfate 90 mcg/actuation aerosol powdr breath activated 1 inh inhalation Q4-6H PRN (Reason: shortness of breath) Qty: 1 RF: 0 Spiriva with HandiHaler 18 mcg capsule, w/inhalation device 1 cap inhalation DAILY Qty: 1 RF: 0 Continued diltiazem HCl 120 mg capsule,extended release 12 hr 120 mg PO BID 90 Days Qty: 180 RF: 8 baclofen 20 mg tablet 20 mg PO BID Qty: 180 RF: 8 divalproex 250 mg tablet,delayed release (DR/EC) 250 mg PO BID Qty: 180 RF: 8 Discharge Orders: Discharge Order (Routine); Ordered 11/15/20 Ordered By: Haroon Dawson Activity on Discharge: As tolerated Stand Alone Forms: Patient Portal Discharge page Care Plan Goals: recovery Health Concerns: aflutter, copd Plan of Treatment: prednsione taper, inhalers, eliquis, multaq
--- NOTE | 2020-11-15 13:25 | MHC.CM.PN ---
pt can be dcd today [facility] is pts first choice with her ins contracted facilities 2nd is [facility] awaiting pt eval so facility can go for ins auth
--- NOTE | 2020-11-15 15:27 | MHC.CM.PN ---
transfer set up for today at 5:00 to [facility] obtained
[2020-11-15 15:28] LABS: COVID-19 Test Negative (Negative); IDNOW Serial# 9DD0AD1C
== END 2020-11-15 17:25 | disposition skilled nursing facility (03) | DRG 871 ==
LOC: HO.ED 10:15 → HO.EDOVER 12:15 → HO.IMC 12:43
PROVIDERS: Hospitalist; Physician Assistant Medical; Admitting Provider Family Medicine; Emergency Provider Emergency Medicine; PCP Internal Medicine; Visit Provider Internal Medicine
DX: A41.9 Sepsis, unspecified organism (principal); J96.21 Acute and chronic respiratory failure with hypoxia; J18.9 Pneumonia, unspecified organism; I50.31 Acute diastolic (congestive) heart failure; J44.0 Chronic obstructive pulmonary disease with (acute) lower respiratory infection; J44.1 Chronic obstructive pulmonary disease with (acute) exacerbation; I69.954 Hemiplegia and hemiparesis following unspecified cerebrovascular disease affecting left non-dominant side; J45.901 Unspecified asthma with (acute) exacerbation; I48.92 Unspecified atrial flutter; I48.0 Paroxysmal atrial fibrillation; G40.909 Epilepsy, unspecified, not intractable, without status epilepticus; Z20.822 Contact with and (suspected) exposure to COVID-19; F17.210 Nicotine dependence, cigarettes, uncomplicated; Z71.6 Tobacco abuse counseling; Z99.81 Dependence on supplemental oxygen; Z79.01 Long term (current) use of anticoagulants; Z79.899 Other long term (current) drug therapy
CPT/HCPCS: 11104; 36415; 36600; 71045; 71250; 80048; 80061; 80076; 81001; 81003; 83605; 83690; 83735; 83880; 84145; 84484; 85007; 85025; 85027; 87040; 87086; 87635; 92610; 93005; 93306; 94640; 96365; 96366; 96367; 96368; 96375; 97116; 97163; 97530; 99285; J0456; J0696; J1160; J1650; J1940; J2920; J2930; J3475; Q0163

== ENCOUNTER → 2020-11-25 14:02 | Outpatient (BNVA) | payer OTHER, SELFPAY | PROVIDERS: PCP Internal Medicine; Visit Provider Internal Medicine | DX: J44.1 Chronic obstructive pulmonary disease with (acute) exacerbation (principal); J45.901 Unspecified asthma with (acute) exacerbation; J18.9 Pneumonia, unspecified organism; J96.00 Acute respiratory failure, unspecified whether with hypoxia or hypercapnia; Z72.0 Tobacco use | CPT/HCPCS: 99212 ==

== ENCOUNTER → 2020-12-07 09:54 | Outpatient (REF) | payer OTHER, MEDICAID, MEDICARE, SELFPAY ==
--- NOTE | 2020-12-07 12:30 | ECG_ITS ---
Hook-up date: 2020-12-07 10:10:00 Duration: 26:16:00 Test Indications: UNSPEC. ATRIAL FLUTTER Medications: 77387 QRS complexes 2267 Ventricular ectopics which represent 2 % of total QRS comp. 2125 Supraventricular ectopics which represent 2 % of total QRS comp. * Paced QRS complexs which represent % of total QRS comp. VENTRICULAR ECTOPY 2261 Isolated 591 Bigeminal Cycles 3 Couplets 0 Runs 0 Beats in Runs * Beats LONGEST at * BPM at :: -- * Beats FASTEST at * BPM at :: -- SUPRAVENTRICULAR ECTOPY 1729 Isolated 136 Couplets 30 Runs 124 Beats in Runs 8 Beats LONGEST at 71 BPM at 20:06:43 2020-12-07 3 Beats FASTEST at 150 BPM at 08:46:25 2020-12-08 HEART RATES 58 MIN at 09:41:28 2020-12-08 73 AVG 132 MAX at 10:40:34 2020-12-07 LONGEST RR 1.0400 secs at 14:36:05 2020-12-07 S-T LEVELS Channel 1 - 128 mm at 10:10:00 2020-12-07 - 128 mm at 10:10:00 2020-12-07 Channel 2 - 128 mm at 10:10:00 2020-12-07 - 128 mm at 10:10:00 2020-12-07 Channel 3 - 128 mm at 02:92:91 -- - 128 mm at 02:92:91 Basic rhythm Normal sinus rhythm No long pause or profound bradycardia Frequent Premature ventricular complexes , isolated with frequent Premature atrial complexes No sustained Atrial flutter Patient did not report any symptoms in the diary Referred By: Eduardo Haro Overread By: EDUARDO HARO MD
== END ==
LOC: HO.CARD 09:54
PROVIDERS: PCP Internal Medicine; Visit Provider Internal Medicine Cardiovascular Disease
DX: I48.92 Unspecified atrial flutter (principal)
CPT/HCPCS: 93226

== ENCOUNTER → 2020-12-27 10:30 | Outpatient (BNVA) | payer MEDICARE, OTHER, MEDICAID, SELFPAY | PROVIDERS: PCP Internal Medicine; Visit Provider Internal Medicine | DX: J44.1 Chronic obstructive pulmonary disease with (acute) exacerbation (principal); J45.901 Unspecified asthma with (acute) exacerbation; J18.9 Pneumonia, unspecified organism; R09.02 Hypoxemia | CPT/HCPCS: 93005; 99212 ==

== ENCOUNTER → 2021-02-15 14:58 | Outpatient (REF) | payer MEDICARE, MEDICAID, SELFPAY ==
--- NOTE | 2021-02-15 15:02 | CA_ITS ---
Transthoracic Echocardiogram Limited Patient (Last, First, Middle): Ruby Mahan M Gender: Female Date of : 1960 Age: 60 Procedure Date: 02/15/2021 Procedure Type: Transthoracic Echocardiogram Limited Location: OP Height: 167.64 cm Weight: 61.24 kg BSA: 1.69 m2 Heart Rate: bpm BP: 122 / 60 mmHg Lamp Shades Supervisor: Referring MD: Eduardo Haro MD Symptoms: I51.7 - Cardiomegaly Study Quality: Technically Difficult ECG Rhythm: Sinus Conclusions: - The left ventricular systolic function is normal. The visually estimated ejection fraction is between 55-60%. Findings Left Ventricle Normal left ventricular cavity size. The left ventricular systolic function is normal. The visually estimated ejection fraction is between 55-60%. Regional wall motion abnormalities can not be excluded due to suboptimal endocardial definition. Prior Study Comparison No significant change compared to prior study dated: 11/09/2020. Measurements 2D Linear Measurements IVSd: 0.73 0.6-0.9/0.6-1.0 cm LVIDd: 3.96 3.9-5.3/4.2-5.9 cm LVIDd Index: 2.34 2.4-3.2/2.2-3.1 cm/m2 LVIDs: 2.78 2.0-3.6 cm LVPWd: 0.70 0.7-1.1 cm LV Mass: 98.36 67-162/88-224 g LV Mass Index: 58.20 43-95/49-115 g/m2 2D Systolic Function EF 4C: 60.00 >55% Mitral Valve MV Pk E: 0.90 MV PK A: 1.22 MV Decel Time: 318.00 E/A: 0.70 E'Lateral: 6.42 E'Medial: 4.90 E/E' Med: 18.40 E/E' Lat: 14.00 PHT: 93.00 MVA PHT: 2.37 Decel [facility]: 2.83 Diastolic Function MV Pk E: 0.90 MV Pk A: 1.22 E/A: 0.70 E'Medial: 4.90 E/E' Med: 18.40 E' Laterial: 6.42 E/E' Lat: 14.00 Updated in Other Vendor System with Status of Final Lew Delatorre MD electronically signed on 02/16/2021 12:21:54 PM with status of Final
== END ==
LOC: HO.CARD 14:58
PROVIDERS: Visit Provider Internal Medicine Cardiovascular Disease
DX: I51.7 Cardiomegaly (principal)
CPT/HCPCS: 93308

== ENCOUNTER → 2021-03-08 13:05 | Outpatient (BNVA) | payer MEDICARE, MEDICAID, SELFPAY | PROVIDERS: PCP Internal Medicine; Visit Provider Internal Medicine | DX: J44.1 Chronic obstructive pulmonary disease with (acute) exacerbation (principal); J45.901 Unspecified asthma with (acute) exacerbation; R09.02 Hypoxemia; Z92.0 Personal history of contraception | CPT/HCPCS: 99212 ==

== ENCOUNTER → 2021-04-04 14:44 | Outpatient (BNVA) | payer MEDICARE, MEDICAID, SELFPAY | PROVIDERS: PCP Internal Medicine; Referring Provider Internal Medicine; Visit Provider Internal Medicine Cardiovascular Disease ==

== ENCOUNTER → 2021-06-15 12:58 | Outpatient (BNVA) | payer MEDICARE, MEDICAID, SELFPAY | PROVIDERS: PCP Internal Medicine; Visit Provider Internal Medicine | DX: J44.9 Chronic obstructive pulmonary disease, unspecified (principal); J45.909 Unspecified asthma, uncomplicated; R09.02 Hypoxemia; Z72.0 Tobacco use | CPT/HCPCS: 99212 ==

== ENCOUNTER 2021-08-01 12:33 | Outpatient (REF) | payer MEDICARE, MEDICAID, SELFPAY ==
[2021-08-01 14:46] LABS: Anion Gap 10 (12-20); Blood Urea Nitrogen 10 mg/dL (9-16); Calcium 10.9 mg/dL (8.4-10.2); Carbon Dioxide 31 mmol/L (22-29); Chloride 101 mmol/L (96-108); Estimated Glomerular Filt Rate > 60; Glucose Random 116 mg/dL (60-115); Sodium 138 mmol/L (135-145)
== END 2021-08-01 12:34 | disposition home or self-care (01) ==
LOC: HO.LAB 12:33
PROVIDERS: PCP Internal Medicine; Referring Provider Internal Medicine; Visit Provider Internal Medicine Cardiovascular Disease
DX: I48.92 Unspecified atrial flutter (principal); I51.7 Cardiomegaly
CPT/HCPCS: 36415; 80048; 93005; 99212

== ENCOUNTER → 2021-10-11 13:06 | Outpatient (BNVA) | payer MEDICARE, MEDICAID, SELFPAY | PROVIDERS: PCP Internal Medicine; Visit Provider Internal Medicine | DX: J44.9 Chronic obstructive pulmonary disease, unspecified (principal); R09.02 Hypoxemia; Z72.0 Tobacco use; Z71.6 Tobacco abuse counseling | CPT/HCPCS: 99212 ==

== ENCOUNTER 2021-11-17 12:52 | Outpatient (REF) | payer MEDICARE, MEDICAID, SELFPAY ==
--- NOTE | 2021-11-17 17:31 | PFT_ITS ---
FLOWS: FEV1 32% of predicted at 0.87 L. FVC 48% of predicted at 1.70 L. FEV1 to FVC ratio of 0.51. No bronchodilator response. LUNG VOLUMES: Total lung capacity 82% of predicted at 4.40 L. Residual volume 118% of predicted at 2.53 L. Slow vital capacity 58% of predicted at 1.87 L. Expiratory reserve volume 9% of predicted at 0.09 L. Diffusion capacity is severely decreased. IMPRESSION: Very severe obstructive ventilatory defect with no bronchodilator response. Decreased diffusion capacity suggests emphysema. Guilherme Loera MD AP/MODL / [id number]
== END 2021-11-17 12:53 | disposition home or self-care (01) ==
LOC: HO.RESP 12:52
PROVIDERS: PCP Internal Medicine; Visit Provider Internal Medicine
DX: J44.9 Chronic obstructive pulmonary disease, unspecified (principal); R09.02 Hypoxemia; Z72.0 Tobacco use
CPT/HCPCS: 94060; 94727; 94729

== ENCOUNTER → 2021-12-07 09:59 | Outpatient (BNVA) | payer MEDICARE, MEDICAID, SELFPAY | PROVIDERS: PCP Internal Medicine; Referring Provider Internal Medicine; Visit Provider Internal Medicine Cardiovascular Disease | DX: Z13.89 Encounter for screening for other disorder (principal) ==

== ENCOUNTER → 2022-01-31 12:55 | Outpatient (REF) | payer MEDICARE, MEDICAID, SELFPAY ==
--- NOTE | 2022-01-31 12:57 | CA_ITS ---
Transthoracic Echocardiogram Patient (Last, First, Middle): Ruby Mahan M Gender: Female Date of : 1960 Age: 61 Procedure Date: 01/31/2022 Procedure Type: Transthoracic Echocardiogram Location: OP Height: 170.18 cm Weight: 74.84 kg BSA: 1.86 m2 Heart Rate: 74 bpm BP: 130 / 84 mmHg Shot Dropper: LA Referring MD: Eduardo Haro MD Symptoms: I51.7 - Cardiomegaly Study Quality: Technically Difficult ECG Rhythm: Sinus, PVCs Conclusions: - Due to image quality and PVCs, LVEF/wall motion difficult to evaluate in spite of contrast; suspect LVEF > 50%. - No obvious valvular pathology seen on this study-but limited visualization. Findings Procedure Information Contrast agent, definity, is being given per protocol without apparent complications. Left Ventricle Normal left ventricular cavity size. There is normal left ventricular wall thickness. Regional wall motion abnormalities can not be excluded due to suboptimal endocardial definition. Diastolic function is indeterminate on the basis of available data. Due to image quality and PVCs, LVEF/wall motion difficult to evaluate in spite of contrast; suspect LVEF > 50%. Right Ventricle Normal right ventricular cavity size and systolic function. Atria Both atria are normal in size. Aortic Valve The aortic valve was not well visualized. There is no aortic valve stenosis. There is no aortic valve regurgitation. Mitral Valve The mitral valve was not well visualized. There is no mitral valve regurgitation. There is no mitral valve stenosis. Pulmonic Valve The pulmonic valve was not well visualized. Tricuspid Valve The right ventricular systolic pressure is 39 mmHg. Mild pulmonary hypertension is present. Great Vessels The asc aorta is normal in size. Venous The inferior vena cava is normal in size and collapses greater than 50% with inspiration. Pericardium/Pleural There is no evidence of pericardial effusion. Prior Study Comparison No significant change compared to prior study dated: 11/09/2020. Due to image quality, difficult to compare. Recommendations, Care & Conclusions No obvious valvular pathology seen on this study. Measurements 2D Linear Measurements RVIDd: 3.18 IVSd: 0.77 0.6-0.9/0.6-1.0 cm LVIDd: 3.42 3.9-5.3/4.2-5.9 cm LVIDd Index: 1.84 2.4-3.2/2.2-3.1 cm/m2 LVIDs: 2.45 2.0-3.6 cm LVPWd: 0.58 0.7-1.1 cm LA Diam: 2.80 2.7-3.8/3.0-4.0 cm LAIDs Index: 1.51 1.5-2.3 cm/m2 LV Mass: 71.48 67-162/88-224 g LV Mass Index: 38.43 43-95/49-115 g/m2 LVOT Diam: 2.10 3.0+(-)1.3 cm 2D Volumes LA ESV A/L: 24.20 22-52/18-58 ML/M2 RA ESV A/L: 23.40 19-21 ML/M2 2D Systolic Function EF Teich: 56.00 >55% EF 2C: 54.20 >55% Mitral Valve MV Pk E: 0.97 MV PK A: 1.22 MV Decel Time: 227.00 E/A: 0.80 E'Medial: 9.36 E/E' Med: 10.30 PHT: 67.00 MVA PHT: 3.28 Decel [place]: 4.26 Aortic Valve AoV Pk Matthew: 1.41 AoV Mn Matthew: 0.98 AoV VTI: 0.28 AoV Pk Grad: 8.00 Aov Mn Grad: 5.00 MOMO Cont.VTI: 3.04 MOMO Method: Continuity Equation LVOT LVOT Pk Matthew: 1.08 LVOT Mn Matthew: 0.82 LVOT VTI: 0.25 LVOT Pk Grad: 5.00 LVOT Mn Grad: 3.00 LVOT Diam: 2.10 LVOT Area: 3.46 Diastolic Function MV Pk E: 0.97 MV Pk A: 1.22 E/A: 0.80 E'Medial: 9.36 E/E' Med: 10.30 Right Ventricle TAPSE (mm): 26.40 TVS' Matthew: 12.00 Tricuspid Valve TR Pk Matthew: 3.01 TR Pk Grad: 36.00 RA Press: 3.00 RVSP: 39.00 Great Vessels Aorta Ao Asc: 2.70 2.1-3.4 cm Updated in Other Vendor System with Status of Final Lew Delatorre MD electronically signed on 02/03/2022 3:19:26 PM with status of Final
== END ==
LOC: HO.CARD 12:55
PROVIDERS: PCP Internal Medicine; Visit Provider Internal Medicine Cardiovascular Disease
DX: I51.7 Cardiomegaly (principal)
CPT/HCPCS: 93306; Q9957

== ENCOUNTER → 2022-02-06 12:35 | Outpatient (BNVA) | payer MEDICARE, MEDICAID, SELFPAY | PROVIDERS: PCP Internal Medicine; Referring Provider Internal Medicine; Visit Provider Internal Medicine Cardiovascular Disease | DX: I48.92 Unspecified atrial flutter (principal); I51.7 Cardiomegaly; Z86.73 Personal history of transient ischemic attack (TIA), and cerebral infarction without residual deficits; Z79.01 Long term (current) use of anticoagulants; Z99.81 Dependence on supplemental oxygen | CPT/HCPCS: 93005; 99212 ==

== ENCOUNTER → 2022-02-09 13:16 | Outpatient (BNVA) | payer MEDICARE, MEDICAID, SELFPAY | PROVIDERS: PCP Internal Medicine; Visit Provider Internal Medicine | DX: J44.9 Chronic obstructive pulmonary disease, unspecified (principal); R09.02 Hypoxemia; Z99.81 Dependence on supplemental oxygen | CPT/HCPCS: 99212 ==

== ENCOUNTER → 2022-05-18 09:57 | Outpatient (BNVA) | payer MEDICARE, MEDICAID, SELFPAY | PROVIDERS: PCP Internal Medicine; Referring Provider Internal Medicine; Visit Provider Internal Medicine Cardiovascular Disease | DX: I47.1 Supraventricular tachycardia (principal); I49.3 Ventricular premature depolarization; I51.7 Cardiomegaly; R94.31 Abnormal electrocardiogram [ECG] [EKG] | CPT/HCPCS: 93005 ==

== ENCOUNTER → 2022-09-27 13:24 | Outpatient (BNVA) | payer OTHER, MEDICARE, MEDICAID, SELFPAY | PROVIDERS: PCP Internal Medicine; Visit Provider Internal Medicine | DX: J44.9 Chronic obstructive pulmonary disease, unspecified (principal); R09.02 Hypoxemia | CPT/HCPCS: 99212 ==

== ENCOUNTER → 2022-10-09 10:12 | Outpatient (BNVA) | payer OTHER, MEDICARE, MEDICAID, SELFPAY | PROVIDERS: PCP Internal Medicine; Referring Provider Internal Medicine; Visit Provider Internal Medicine Cardiovascular Disease | DX: Z79.899 Other long term (current) drug therapy (principal) | CPT/HCPCS: 93005 ==

== ENCOUNTER → 2023-02-12 12:52 | Outpatient (BNVA) | payer OTHER, MEDICARE, MEDICAID, SELFPAY | PROVIDERS: PCP Internal Medicine; Referring Provider Internal Medicine; Visit Provider Internal Medicine Cardiovascular Disease | DX: I48.92 Unspecified atrial flutter (principal); I51.7 Cardiomegaly | CPT/HCPCS: 93005; 99212 ==

== ENCOUNTER 2023-03-14 11:43 | Outpatient (REF) | payer MEDICARE, MEDICAID, SELFPAY ==
[2023-03-14 12:07] LABS: Hematocrit 46.9 % (37.0-47.0); Hemoglobin 14.9 g/dl (12.0-16.0); Mean Corpuscular HGB Conc 31.8 g/dl (31.0-35.0); Mean Corpuscular Hemoglobin 30.3 pg (27.0-33.0); Mean Corpuscular Volume 95.5 fL (80.0-98.0); Mean Platelet Volume 10.4 fL (9.4-12.3); Platelet Count 357 X10*3/uL (160-400); Red Blood Count 4.91 X10*6/uL (4.20-5.50); Red Cell Distribution Width 12.8 % (11.0-16.0); White Blood Count 10.7 X10*3/uL (4.8-10.8)
[2023-03-15 02:24] LABS: Alanine Aminotransferase 14 U/L (0-31); Albumin Level 4.4 g/dL (3.5-5.0); Alkaline Phosphatase 46 U/L (39-117); Anion Gap 14 (12-20); Aspartate Amino Transferase 14 U/L (5-31); Bilirubin Total 0.4 mg/dL (0.0-1.0); Blood Urea Nitrogen 15 mg/dL (9-16); Calcium 10.2 mg/dL (8.4-10.2); Carbon Dioxide 27 mmol/L (22-29); Chloride 102 mmol/L (96-108); Cholesterol 221 mg/dL; Estimated Glomerular Filt Rate > 60; Glucose Fasting 96 mg/dL (60-99); Glucose Random 97 mg/dL (60-115); HDL Cholesterol 55 mg/dL; LDL Cholesterol Calculated 136 mg/dl; Potassium 4.2 mmol/L (3.3-5.1); Sodium 139 mmol/L (135-145); Thyroid Stimulating Hormone 2.48 uIU/mL (0.32-4.0); Total Protein 7.4 g/dL (6.5-8.0); Triglycerides 151 mg/dL
== END 2023-03-14 11:44 | disposition home or self-care (01) ==
LOC: HO.LAB 11:43
PROVIDERS: Internal Medicine Cardiovascular Disease; PCP Internal Medicine; Visit Provider Internal Medicine
DX: I48.92 Unspecified atrial flutter (principal); I10 Essential (primary) hypertension; E03.9 Hypothyroidism, unspecified; E78.5 Hyperlipidemia, unspecified
CPT/HCPCS: 36415; 80048; 80053; 80061; 84443; 85027

== ENCOUNTER 2023-04-02 11:29 | Outpatient (AMB) | payer MEDICARE, OTHER, MEDICAID, SELFPAY ==
--- NOTE | 2023-04-02 11:44 | A.OFFPC_ITS ---
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 Required: No Accompanied by: Self / Same As Patient Allergies No Known Allergies Allergy (Verified 04/02/23 11:44) Medication List - Last Reconciled 04/02/23 by Miguelito Bearden MD albuterol sulfate 90 mcg/actuation (Ventolin HFA) 2 puffs inhalation Q4-6H PRN apixaban (Eliquis) 5 mg PO BID baclofen 20 mg PO TID cholecalciferol (vitamin D3) 25 mcg PO DAILY diltiazem HCl ER 120 mg PO BID 90 days divalproex 250 mg PO BID dronedarone (Multaq) 400 mg PO BID multivitamin 1 tab PO DAILY nicotine 21 mg transdermal DAILY umeclidinium 62.5 mcg/actuation (Incruse Ellipta) 1 inh inhalation Q24H Tobacco use date assessed: 10/09/22 Fall risk assessment: No Falls in past year Last assessed Fall Risk: 04/02/23 Dental Screening Dental Screen Date: 04/02/23 Did you have a dental visit in the last 12 months?: Yes Did you have a dental problem in the last 6 months where you did not have access to dental care?: No Was dental information given to patient?: Patient has dentist HPI 6mth f/u HPI Details copd sz disorder and aflutter; stable at present PFSH Medical History Asthma Atrial flutter with rapid ventricular response Chronic respiratory failure COPD (chronic obstructive pulmonary disease) CVA (cerebral vascular accident) Enlarged RV (right ventricle) Exercise hypoxemia Hypoxemia Seizure Tobacco use Surgical History History of Family History Mother Colon cancer Social History Household Members: None Housing: Apartment Do you presently have visiting nurse or other home services: No Alcohol intake: never Patient Tobacco Use Status: Former Tobacco user Years Smoked: 46 e-Cigarette/Vaping Use: Never Used Second Hand Smoke Exposure: Yes Advance Directives Date on File: 11/08/20 service: No Current occupational status: disabled Cognitive needs: Yes (walker) Hearing needs: No Vision needs: Yes (glasses) Questionnaire PHQ-9 Over the last 2 weeks, how often have you been bothered by any of the following problems? Depression Screening Interpretation: Negative Source: Developed by Drs. Jonah Vitale, Jared Villarreal and colleagues, with an educational ken from [employer]. Thrive Questionnaire Date Thrive assessed: 10/09/22 Currently or been in a relationship where the following occur: no concerns reported GENEVIEVE-7 AMB Questionnaire GENEVIEVE-7 Date GENEVIEVE - 7 assessed: 10/09/22 Source: Developed by Drs. Jonah Vitale, Jared Villarreal and colleagues, with an educational ken from [employer]. Review of Systems Const Denies chills, Denies headache(s) and Denies weight loss ENT Denies headache(s) Card Denies chest pain, Denies syncope, Denies irregular heart rhythm and Denies dyspnea Resp Denies chest congestion, Denies cough and Denies dyspnea GI Denies abdominal pain, Denies change in stool character, Denies nausea and Denies vomiting Musc Denies deformity and Denies joint swelling Neuro Denies syncope and Denies headache(s) Physical exam (Primary Care) Vital Signs: Last Vital Signs Pulse 70 04/02/23 11:45 BP 122/70 04/02/23 11:45 Pulse Ox 84 L 04/02/23 11:45 Oxygen Delivery Method Room Air 04/02/23 11:45 BMI result Body Mass Index 24.6 Tobacco/Smoking Status: Tobacco use Status Tobacco use date assessed 10/09/22 04/02/23 11:45 Patient Tobacco Use Status Former Tobacco user 04/02/23 11:45 e-Cigarette/Vaping Use Never Used 04/02/23 11:45 Depression Screening Interpretation: Negative Thrive Assessment: Date of Thrive Assessment Date Thrive assessed 10/09/22 04/02/23 11:45 Currently or been in a relationship where the following occur: no concerns reported Const General: cooperative, comfortable and no acute distress Chest Chest palpation & inspection: normal inspection of the chest Resp Effort & Inspection: normal respiratory effort Auscultation: clear to auscultation bilaterally Percussion: percussion normal Cardio Jugular venous distension: no JVD Rate: regular rate Rhythm: regular rhythm Assessment and Plan Assessment & Plan (1) COPD (chronic obstructive pulmonary disease): Code(s): J44.9 - Chronic obstructive pulmonary disease, unspecified Plan: stable; same rx (2) Paroxysmal atrial flutter: Code(s): I48.92 - Unspecified atrial flutter Plan: stable; same rx (3) Seizure: Code(s): R56.9 - Unspecified convulsions Plan: stable; same rx Orders: Referrals Pulmonary Medicine Referral J44.9 - Chronic obstructive pulmonary disease, unspecified Coding Level of Care Code Est Pt Level 4 (29425) Diagnoses COPD (chronic obstructive pulmonary disease) J44.9 Paroxysmal atrial flutter I48.92 Seizure R56.9
[2023-04-02 11:45] VITALS: BP 122/70; PULSE 70; O2SAT 84; BMI 24.6
== END 2023-04-02 12:04 | disposition home or self-care (01) ==
PROVIDERS: Visit Provider Internal Medicine
DX: J44.9 Chronic obstructive pulmonary disease, unspecified (principal); I48.92 Unspecified atrial flutter; R56.9 Unspecified convulsions
CPT/HCPCS: 99214

== ENCOUNTER 2023-04-02 12:05 | Outpatient (REF) | payer MEDICARE, MEDICAID, SELFPAY ==
--- NOTE | ~2023-04-02 | MM_ITS ---
EXAMINATION: MM SCREENING DIGITAL BREAST TOMOSYNTHESIS, BILATERAL CLINICAL INFORMATION: Screening. Asymptomatic. The lifetime risk of breast cancer based on the Tyrer-Cuzick Model is 9.0%. COMPARISON: Mammography: 09/10/2020, 07/08/2019, 06/22/2018, and dating back to 2009. TECHNIQUE: Digital breast tomosynthesis is performed in both the craniocaudal and mediolateral oblique views along with computer-aided detection (CAD). Synthesized 2D images are generated from the tomosynthesis. FINDINGS: There are scattered areas of fibroglandular density (ACR BI-RADS breast composition Category b). There are no suspicious masses, suspicious grouped calcifications, or areas of architectural distortion. The parenchymal pattern is stable from prior exams. There are numerous left greater than right calcifications again demonstrated, with benign morphology, unchanged from prior exams. These are benign. There has been no aggressive change. There is a similar one view parenchymal asymmetry in the central right breast on the CC projection, unchanged from prior exams dating back to 2018. This is benign. There are no skin changes. MM/MM tomosynthesis screening BI IMPRESSION: No mammographic evidence of malignancy. Stable benign findings both breasts. ASSESSMENT: BI-RADS BI-RADS 2 - Benign Findings RECOMMENDATION: Routine annual mammography screening. 1 year F/U This examination should not preclude the clinical evaluation of a suspicious palpable abnormality. This patient's information was entered into a reminder system with a target due date for their next mammogram.
== END 2023-04-02 12:06 | disposition home or self-care (01) ==
LOC: HO.MAMMO 12:05
PROVIDERS: PCP Internal Medicine; Visit Provider Internal Medicine
DX: Z12.31 Encounter for screening mammogram for malignant neoplasm of breast (principal)
CPT/HCPCS: 77063; 77067; 94618; 99212

== ENCOUNTER → 2023-04-02 12:15 | Outpatient (BNV) | payer MEDICARE, MEDICAID, SELFPAY | PROVIDERS: PCP Internal Medicine; Visit Provider Radiology Diagnostic Radiology | DX: Z12.31 Encounter for screening mammogram for malignant neoplasm of breast (principal) | CPT/HCPCS: 77063; 77067 ==

== ENCOUNTER 2023-04-02 13:05 | Outpatient (AMB) | payer MEDICARE, MEDICAID, SELFPAY ==
[2023-04-02 13:30] VITALS: BP 138/78; PULSE 81; O2SAT 91; BMI 24.4
--- NOTE | 2023-04-02 13:30 | A.OFFVIS_ITS ---
Intake Vital Signs 04/02/23 13:30 Height 5 ft 6 in Weight 151 lb BMI 24.4 BP 138/78 Blood Pressure Location Rt brachial Position Sitting Pulse 81 Pulse Source Pulse Oximeter Pulse Oximetry (%) 91 L Oxygen Delivery Method Nasal Cannula Oxygen Flow Rate 2 Intake Visit Reasons: COPD Intake Note: pt is here for follow up and states she is feeling good, but O2 has been low at pcp and here at our office, pt was put on 3 liters at pcp, here pt came in and she was at 85%, put on oxygen 2 iers and brought it to 91 on 3 liters. Using oxygen at 3 liters at night time also. [employer] Required: No Allergies No Known Allergies Allergy (Verified 04/02/23 14:03) Medication List - Last Reconciled 04/02/23 by Eriberto Villareal MD albuterol sulfate 90 mcg/actuation (Ventolin HFA) 2 puffs inhalation Q4-6H PRN apixaban (Eliquis) 5 mg PO BID baclofen 20 mg PO TID cholecalciferol (vitamin D3) 25 mcg PO DAILY diltiazem HCl ER 120 mg PO BID 90 days divalproex 250 mg PO BID dronedarone (Multaq) 400 mg PO BID multivitamin 1 tab PO DAILY nicotine 21 mg transdermal DAILY umeclidinium 62.5 mcg/actuation (Incruse Ellipta) 1 inh inhalation Q24H Do you need a note to return to daycare/school/sports/work: No HPI COPD HPI Details Sonya is 63 years old very pleasant female with moderately severe obstructive airway disorder. She is on Incruse Ellipta 1 inhalation daily. And for nocturnal hypoxemia she uses O2 2 L/minute only at night. Patient does have associated atrial flutter/fibrillation controlled with anti arrhythmic meds and also on anticoagulation. Patient has been a lifelong smoker, had quit in 2020 but then restarted smoking. SHE TELLS ME HE, THAT SINCE JULY 2022 SHE HAS NOT SMOKED AT ALL. She walks in and claims that she is feeling well except for shortness of breath on exertion. However as she walked in the office her O2 sat was down to 84%. She has had no recent respiratory infection. She does use Incruse Ellipta 1 inhalation daily regularly. PFSH Medical History Asthma Atrial flutter with rapid ventricular response Chronic respiratory failure COPD (chronic obstructive pulmonary disease) CVA (cerebral vascular accident) Enlarged RV (right ventricle) Exercise hypoxemia Hypoxemia Seizure Tobacco use Surgical History History of Family History Mother Colon cancer Social History Household Members: None Housing: Apartment Do you presently have visiting nurse or other home services: No Alcohol intake: never Patient Tobacco Use Status: Former Tobacco user Years Smoked: 46 e-Cigarette/Vaping Use: Never Used Second Hand Smoke Exposure: Yes Advance Directives Date on File: 11/08/20 service: No Current occupational status: disabled Cognitive needs: Yes (walker) Hearing needs: No Vision needs: Yes (glasses) Review of Systems Const All systems reviewed & are unremarkable except as noted in HPI and below Eyes Reports no additional complaints ENT Reports no additional complaints Card Denies chest pain, Reports irregular heart rhythm (Paroxysmal) and Denies leg e royal Resp Reports as per HPI GI Reports no additional complaints Reports no additional complaints Musc Reports no additional complaints Skin/Breast Reports system reviewed and no additional complaints, except as documented Neuro Reports focal weakness (Muscular weakness of the left leg) Psych Reports no additional complaints Physical Exam Vital Signs: Last Vital Signs Pulse 81 04/02/23 13:30 BP 138/78 04/02/23 13:30 Pulse Ox 91 L 04/02/23 13:30 Oxygen Delivery Method Nasal Cannula 04/02/23 13:30 Oxygen Flow Rate 2 04/02/23 13:30 BMI result Body Mass Index 24.4 Const General: comfortable, no acute distress, alert and awake Orientation/consciousness: patient oriented x3 HEENT Head: Yes normal to inspection General nose exam: No nasal polyps present and No nasal discharge present Face and sinus: Yes sinuses nontender Mouth: oropharynx normal Throat: Yes posterior oropharynx normal Eyes General: appearance normal, both eyes and all related structures Neck Neck: Yes normal visual inspection, Yes no lymphadenopathy, Yes trachea midline and Yes no JVD Thyroid: Thyroid normal Chest Chest palpation & inspection: normal inspection of the chest, normal palpation of entire chest wall and no tenderness Resp Other: PERCUSSION NOTE IS RESONANT, BREATH SOUNDS ARE DISTANT WITH PROLONGED EXPIRATORY PHASE, BUT EQUAL ON BOTH SIDES. NO AUDIBLE WHEEZES OR RHONCHI. Cardio Palpation: normal PMI Rate: regular rate Rhythm: regular rhythm Heart sounds: no gallops and no murmurs GI Palpation (GI): Soft to palpation, nontender, No hepatosplenomegaly present and no masses Auscultation: normal bowel sounds Back/Spine/Pelvis Thoracic/Lumbar Spine: thoracic and lumbar spine normal to inspection and thoraco-lumbar ROM limited Skin General skin exam: no rashes or lesions noted Neuro General: patient oriented x3, No gait normal (Gait is impaired, uses cane) and no focal motor deficits Cranial nerves: Yes CN's II-XII intact bilaterally Extrem General: Yes normal to inspection, Yes no clubbing, cyanosis or edema and Yes no calf tenderness Psych Appearance: grossly normal and well kempt Speech and movement: Normal speech and movement present Office Procedures 6 Minute Walk Time:: 14:00 SPO2 % at rest: 84 (on room air ) Pulse at rest: 77 SPO2 % during excercise: 87 Pulse during excercise: 126 SPO2 % after excercise: 91 Pulse after excercise: 99 Distance in yards walked: 100 Mc Score: 0 Performance Observations:: Ruby's SPO2 at rest on room air was 84% O2 started at 2 lpm and her SPO2 recovered to 93%. Ruby walked for 2 minutes before her SPO2 decreased to 87% on 2 lpm, O2 increased to 3 lpm and her SPO2 recovered to 92%. She maintained her SPO2 89-91% with exertion on O2 3 lpm. [id number] - 6 Minute Walk Results Reviewed Results Reviewed: 6 minutes walk test is done Assessment & Plan Assessment & Plan (1) COPD (chronic obstructive pulmonary disease): Code(s): J44.9 - Chronic obstructive pulmonary disease, unspecified (2) Tobacco use: Comment: SMOKING CESSATION , PROGRAM . SHE claims that she quit since October of 2020. She started smoking again at the start of the year, but quit since Jul 2022 . Urged NOT TO GO BACK TO smoking at all. Code(s): Z72.0 - Tobacco use (3) Hypoxemia: Comment: Patient started with nocturnal and exercise induced hypoxemia. Currently she is hypoxemic even at rest O2 sat 89-90 % During walk O2 sats while down, quickly and she required O2 3 L/minute to maintain the O2 sat 89-90%. Does she will be on oxygen therapy as follows: Stationary O2 concentrator, O2 3 L/minute continuously during the day as well as at night. Portable O2 concentrator , and she is to use O2 3 L/minute any time she goes out of the house and walks around. Code(s): R09.02 - Hypoxemia Orders: Orders AMB 6 minute walk Today R09.02 - Hypoxemia Coding Level of Care Code Est Pt Level 4 (18387) Diagnoses COPD (chronic obstructive pulmonary disease) J44.9 Tobacco use Z72.0 Hypoxemia R09.02 CPT Codes Coding ([id number])
[2023-04-02 14:19] VITALS: PULSE 77; O2SAT 84
== END 2023-04-02 14:22 | disposition home or self-care (01) ==
PROVIDERS: PCP Internal Medicine; Visit Provider Internal Medicine
DX: J44.9 Chronic obstructive pulmonary disease, unspecified (principal); Z72.0 Tobacco use; R09.02 Hypoxemia
CPT/HCPCS: 94618; 99214

== ENCOUNTER 2023-04-04 02:16 | Emergency (ER) | payer MEDICARE, OTHER, MEDICAID, SELFPAY ==
[2023-04-04] VITALS (7 sets, daily range): BP systolic 98–117; BP diastolic 39–80; PULSE 98–110; RESP 18; TEMP 35.6–36.6; O2SAT 88–97; BMI 26.0
--- NOTE | ~2023-04-04 | CT_ITS ---
EXAMINATION: CT CERVICAL SPINE WITHOUT CONTRAST CLINICAL INFORMATION: Trauma. Pain. COMPARISON: None available. TECHNIQUE: Contiguous axial noncontrast CT scan images of the cervical spine obtained. Sagittal and coronal reformatted images also obtained. This CT examination was performed using dose optimization techniques as appropriate, variously including the following: *Automated exposure control *Adjustment of mA and/or kV according to patient size (this includes techniques or standardized protocols for targeted exams where dose is matched to indication/reason for exam; i.e. extremities or head) *Use of iterative reconstruction technique DLP: 370 mGy-cm FINDINGS: Patient motion slightly limits evaluation. There is minimal anterolisthesis C4 over C5. There is mild diffuse cervical disc degenerative change most pronounced at C4-C5 and C5-C6 with loss of disc space, endplate change and minimal osteophyte formation associated with mild diffuse facet osteoarthritic hypertrophic change with minimal multilevel spinal canal narrowing and mild multilevel neural foraminal narrowing. There is no fracture. There is upper lobe emphysematous change. CT/CT cervical spine wo IV con IMPRESSION: Motion slightly limits evaluation. Cervical disc degenerative change. Minimal anterolisthesis C4 over C5. No evidence for fracture Fleischner guidelines were followed.
--- NOTE | ~2023-04-04 | CT_ITS ---
EXAMINATION: CT HEAD WITHOUT CONTRAST CLINICAL INFORMATION: Head strike. COMPARISON: None available. TECHNIQUE: Contiguous axial imaging was performed from the skull base to vertex without intravenous administration of contrast. This CT examination was performed using dose optimization techniques as appropriate, variously including the following: *Automated exposure control *Adjustment of mA and/or kV according to patient size (this includes techniques or standardized protocols for targeted exams where dose is matched to indication/reason for exam; i.e. extremities or head) *Use of iterative reconstruction technique DLP: 734.25 mGy-cm FINDINGS: There is mild cerebral volume loss with prominence of the lateral and the third ventricles. The cortical sulci are widened appropriately. The fourth ventricle and basal cisterns are normally outlined. Right temporal and parietal encephalomalacia is noted. There is mild bilateral periventricular and central white matter diminished attenuation. There is no acute territorial defect, hemorrhage or midline shift. The extra-axial spaces are unremarkable. Calvarium/scalp: Intact. There is right parieto-occipital scalp soft tissue swelling. Maxillofacial sinuses and mastoids: There is mucosal thickening of the right maxillary sinus. CT/CT head/brain wo IV con IMPRESSION: 1. Mild cerebral volume loss and mild bilateral periventricular and central white matter diminished attenuation which is nonspecific but likely to represent mild microvascular disease. 2. Right temporal and parietal encephalomalacia. 3. No acute intracranial abnormality. 4. Right parieto-occipital scalp soft tissue swelling.
--- NOTE | 2023-04-04 04:52 | ED_ITS ---
HPI - Fall General Chief Complaint: Fall Stated Complaint: unwitnessed fall, +headstrike +thinners Time Seen by Provider: 04/04/23 04:12 Source: patient Mode of arrival: EMS Limitations: no limitations History of Present Illness HPI Narrative: 63 yo female with COPD and 3L NC normal O2 88-94%, asthma, HTN, seizures, PAD on eliquis, pneumonia bent down tonight to get oxygen tubing and fell forward striking head no LOC no other injuries called for help was only on ground for 30 minutes feels fine has no complaints feeling well until this. Normal day up to this. complaint: fall Onset (ago): minute(s) (just prior to arrival) Fall from: standing Fall witnessed: no Place fall occurred: home Loss of consciousness: none Prolonged down time: no Symptoms prior to fall: none Context: other (lost balance leaning forward) Location of injury: head Severity: mild Associated symptoms (after fall): denies Related Data Home Medications Medication Instructions Recorded Confirmed multivitamin 1 tab PO DAILY 12/27/20 04/02/23 nicotine 14 mg/24 hr daily 21 mg transdermal DAILY 06/15/21 04/02/23 transdermal patch cholecalciferol (vitamin D3) 25 25 mcg PO DAILY 08/01/21 04/02/23 mcg (1,000 unit) capsule Previous Rx's Medication Instructions Recorded albuterol sulfate 90 mcg/actuation 2 puff inhalation Q4-6H PRN 05/12/21 aerosol inhaler (Ventolin HFA) shortness of breath or wheezing #3 ea divalproex 250 mg tablet,delayed 250 mg PO BID #180 tabs 04/06/22 release apixaban 5 mg tablet (Eliquis) 5 mg PO BID #180 tabs 07/18/22 diltiazem HCl 120 mg 120 mg PO BID 90 days #180 caps 07/18/22 capsule,extended release 12 hr umeclidinium 62.5 mcg/actuation 1 inh inhalation Q24H #30 ea 07/18/22 blister powder for inhalation (Incruse Ellipta) baclofen 20 mg tablet 20 mg PO TID #90 tabs 09/04/22 dronedarone 400 mg tablet (Multaq) 400 mg PO BID #180 tabs 12/27/22 Allergies Allergy/AdvReac Type Severity Reaction Status Date / Time No Known Allergies Allergy Verified 04/04/23 02:30 Review of Systems Review of Systems: Constitutional : No Fever, No Chills, No Fatigue Cardiovascular : No Chest Pain, No SOB, No Dyspnea on Exertion Respiratory : No Cough, No Sputum Gastrointestinal : No Nausea, No Vomiting, No Diarrhea, No abdominal Pain Genitourinary : No Dysuria, No Urinary Frequency, No Hematuria, Musculoskeletal : No joint pain, No Myalgias, No Joint Swelling Skin : No Skin Lesions, No rash Neuro : No Weakness, No Numbness, No Dizziness, no Headache Psych : No Anxiety/Panic, No Depression All other systems reviewed and are negative [facility] Past Medical History Attestation statement: The following information was validated with the patient. Medical History Asthma Atrial flutter with rapid ventricular response Chronic respiratory failure COPD (chronic obstructive pulmonary disease) CVA (cerebral vascular accident) Enlarged RV (right ventricle) Exercise hypoxemia Hypoxemia Seizure Tobacco use Surgical History History of Family History Family History Mother Colon cancer Social History Social History Household Members: None Housing: Apartment Do you presently have visiting nurse or other home services: No Alcohol intake: former Patient Tobacco Use Status: Former Tobacco user Years Smoked: 46 Smoked in Last 30 Days: No e-Cigarette/Vaping Use: Never Used Second Hand Smoke Exposure: Yes Use of substances other than those prescribed or required for medical reasons: No Advance Directives: Yes Advance Directives on File: Yes Advance Directives Date on File: 11/08/20 Patient : No service: No Current occupational status: disabled Cognitive needs: Yes (walker) Hearing needs: No Vision needs: Yes (glasses) Physical Exam Vital Signs: Vital Signs: Last Vital Signs Temp 96.0 F L 04/04/23 06:15 Pulse 110 H 04/04/23 06:31 Resp 18 04/04/23 06:31 BP 117/76 04/04/23 06:54 Pulse Ox 93 04/04/23 06:31 O2 Del Method Room Air 04/04/23 06:31 O2 Flow Rate 4 04/04/23 06:31 Oxygen Flow Rate 3 04/04/23 02:24 BMI result Body Mass Index 26.0 Appearance: Alert. Oriented X3. No acute distress. Eyes: Pupils equal, round and reactive to light. ENT: Pharynx normal. atraumatic Neck: Normal inspection. Neck supple. no midline ttp CVS: Normal heart rate and rhythm. Pulses normal. Respiratory: No respiratory distress. Breath sounds dminished throughout. Abdomen: Soft and nontender. Skin: Skin warm and dry. Normal skin color. Normal skin turgor. Extremities: No lower extremity edema. No calf ttp Neuro: Oriented X 3. No motor deficit. No sensory deficit. Medical Decision Making Medical Decision Making MDM Narrative: 63 yo female with COPD and 3L NC normal O2 88-94%, asthma, HTN, seizures, PAD on eliquis, pneumonia at this time she lost balance leaning forward has no complaints feels fine but did hit head no CP/SOB or feeling ill recently - she is on DOAC will need CT head and cspine for trauma. If negative stable for DC home. O2 is at her baseline and states she feels her breathing is okay and normal for her no increased work of breathing Differential Diagnosis Differential Diagnoses: The differential diagnosis associated with the presentation includes ICH, fracture, contusion, head injury Admission/Observation Consideration of admission/observation: Escalation of care including admission/observation considered states she lost balance no ambulation issues no need for acute rehab Independent Interpretation I performed an independent interpretation of an: CT Scan (no trauma or ICH) Radiology Impression Discussion of test interpretation with radiology: I have reviewed the radiologist's reading. Independent Historian Clinical information obtained from an independent historian. History obtained from or confirmed by: EMS External Record Review External record reviewed: Inpatient record Tests considered The following testing was considered but not selected: labs but the patient declines states she is okay Discharge Plan Discharge Clinical Impression: Head injury Qualifiers: Encounter type: initial encounter Qualified Code(s): S09.90XA - Unspecified injury of head, initial encounter Patient Disposition: Home, Self-Care Instructions: Head Injury (ED) Additional Instructions: no acute trauma on CT of head or cervical spine return for worsening headaches, confusion, dizziness, pain or any other concerns. Prescriptions: No Action albuterol sulfate [Ventolin HFA] 90 mcg/actuation HFA aerosol inhaler 2 puff inhalation Q4-6H PRN (Reason: shortness of breath or wheezing) Qty: 3 3RF divalproex 250 mg tablet,delayed release (DR/EC) 250 mg PO BID Qty: 180 8RF Eliquis 5 mg tablet 5 mg PO BID Qty: 180 3RF diltiazem HCl 120 mg capsule,extended release 12 hr 120 mg PO BID 90 Days Qty: 180 3RF Incruse Ellipta 62.5 mcg/actuation blister with device 1 inh inhalation Q24H Qty: 30 8RF baclofen 20 mg tablet 20 mg PO TID Qty: 90 8RF Multaq 400 mg tablet 400 mg PO BID Qty: 180 3RF multivitamin Tablet 1 tab PO DAILY cholecalciferol (vitamin D3) 25 mcg (1,000 unit) capsule 25 mcg PO DAILY nicotine 14 mg/24 hr patch 24 hour 21 mg transdermal DAILY
== END 2023-04-04 08:42 | disposition home or self-care (01) ==
PROVIDERS: Emergency Provider Emergency Medicine; PCP Internal Medicine
DX: S09.90XA Unspecified injury of head, initial encounter (principal); J44.9 Chronic obstructive pulmonary disease, unspecified; I10 Essential (primary) hypertension; R51.9 Headache, unspecified; M54.2 Cervicalgia; X58.XXXA Exposure to other specified factors, initial encounter; Y93.9 Activity, unspecified; Y92.9 Unspecified place or not applicable; Y99.9 Unspecified external cause status; Z79.899 Other long term (current) drug therapy; Z79.01 Long term (current) use of anticoagulants
CPT/HCPCS: 70450; 72125; 99284

== ENCOUNTER 2023-04-05 09:16 | Inpatient (IN) | payer MEDICARE, OTHER, MEDICAID, SELFPAY ==
[2023-04-05] VITALS (15 sets, daily range): BP systolic 83–120; BP diastolic 43–66; PULSE 95–120; RESP 16–26; TEMP 36.4–37.9; O2SAT 88–96; BMI 24.4; BMI 24.9; BMI 24.1
--- NOTE | ~2023-04-05 | XR_ITS ---
EXAMINATION: XR CHEST AP PORTABLE, 10:17 AM CLINICAL INFORMATION: Shortness of breath COMPARISON: 11/09/2020 TECHNIQUE: Frontal view of the chest was obtained. FINDINGS: The lungs are hyperinflated. Thickened interlobular septae are evident in the periphery of the right mid and in the right lower lung zone, increased since the prior examination. Overall, the aeration is improved bilaterally since the prior study. The cardiac silhouette is mildly enlarged. Hilar and mediastinal contours are stable. XR/XR chest 1V IMPRESSION: 1. Emphysematous COPD. 2. Chronic interstitial lung disease, with overall improvement in aeration, especially at the bases since 11/09/2020. 3. New thickened interlobular septae in the periphery of the right mid and lower lung zone. This nonspecific finding can be due to infection, fluid, and lymphangitic carcinomatosis, amongst other etiologies. 4. Cardiomegaly.
--- NOTE | ~2023-04-05 | CT_ITS ---
EXAMINATION: CT CHEST, ABDOMEN AND PELVIS WITH CONTRAST CLINICAL INFORMATION: Abdominal pain. Shortness of breath. Hypoxia. COMPARISON: 11/11/2020 TECHNIQUE: Multidetector volumetric imaging was performed of the chest, abdomen and pelvis following administration of 85 mL Omnipaque 350 intravenous contrast. Oral contrast was administered. Sagittal and coronal reformatted images were obtained on the technologist's workstation. This CT examination was performed using dose optimization techniques as appropriate, variously including the following: *Automated exposure control *Adjustment of mA and/or kV according to patient size (this includes techniques or standardized protocols for targeted exams where dose is matched to indication/reason for exam; i.e. extremities or head) *Use of iterative reconstruction technique DLP: 533 mGy-cm FINDINGS: CHEST: AXILLA: No axillary lymphadenopathy. MEDIASTINUM: Imaged thyroid gland is unremarkable. No bulky mediastinal or hilar lymphadenopathy. There are right subclavian artery. Thoracic aorta is of normal caliber. Dilated pulmonary arteries heart is enlarged. No pericardial effusion. CORONARY ARTERY CALCIFICATION: No significant coronary artery calcification appreciated on this exam. PLEURA: Small right pleural effusion. LUNGS: Moderate centrilobular emphysema. Right lower lobe airspace disease. There is bronchial wall thickening in the right lower lobe. No suspicious pulmonary nodule. Central airways are patent. ANGIOGRAM: There is no evidence of filling defect within the main, interlobar, segmental, or subsegmental pulmonary arterial vasculature. ABDOMEN AND PELVIS: LIVER AND BILIARY TREE: The liver is slightly nodular with heterogeneity of the parenchyma that appears somewhat infiltrative. There are few scattered hypodensities that are too small to characterize. The parenchyma is overall decreased in attenuation. No biliary ductal dilatation. GALLBLADDER: Unremarkable. PANCREAS: No ductal dilatation. SPLEEN: Not enlarged. ADRENAL GLANDS: Thickening of bilateral adrenal glands. KIDNEYS AND URETERS: The kidneys are symmetric in size and enhancement. There is minimal scarring at the posterior upper pole of the right kidney. No hydronephrosis or perinephric stranding.. GASTROINTESTINAL TRACT: Marked fecal retention in the colon with fecal impaction in the rectum. No small bowel obstruction. VASCULAR: Normal caliber abdominal aorta. LYMPH NODES: No bulky abdominal or pelvic lymphadenopathy. FREE FLUID: No free fluid. BLADDER: Decompressed. PELVIC VISCERA: Hypodense mass in the left adnexa measuring 2.3 x 3.5 x 3.6 cm. Uterus is anteverted. OSSEOUS STRUCTURES: Old healed bilateral rib fractures. Status post left total hip arthroplasty. Chronic superior endplate depression of L1 vertebral body. CT/CT abdomen pelvis w IV con IMPRESSION: No evidence of pulmonary embolus. Airspace disease in the right lower lobe with bronchial wall thickening. Small right pleural effusion. This may represent bronchopneumonia. Dilated pulmonary arteries may be seen in the setting of pulmonary hypertension. Diffusely heterogeneous hepatic parenchyma with infiltrative appearance. MRI abdomen is recommended for further characterization. Left adnexal hypodensity 2.3 x 3.5 x 3.6 cm. This may be further characterized with pelvic ultrasound on a nonemergent basis. Fecal impaction in the rectum.
--- NOTE | ~2023-04-05 | XR_ITS ---
EXAMINATION: XR CHEST CLINICAL INFORMATION: Hypoxia COMPARISON: Previous chest x-ray most recent 04/05/[address] from the same day TECHNIQUE: Frontal view of the chest was obtained. FINDINGS: The cardiac and mediastinal contours are stable. There are increased markings at the lung bases questionable for bronchial wall thickening or small pneumonia. This appears increased from previous exams No pleural effusion or pneumothorax. Bony structures are unremarkable. XR/XR chest 1V IMPRESSION: Increased markings at the lung bases questionable for bronchial wall thickening or small pneumonia.
--- NOTE | 2023-04-05 09:20 | ECG_ITS ---
Test Reason : DYSPENA Blood Pressure : / mmHG Vent. Rate : 095 BPM Atrial Rate : 095 BPM P-R Int : 184 ms QRS Dur : 112 ms QT Int : 410 ms P-R-T Axes : 064 -68 195 degrees QTc Int : 515 ms Sinus rhythm with Premature supraventricular complexes Left axis deviation Inferior infarct , age undetermined Anteroseptal infarct (cited on or before 06-APR-2004) ST & T wave abnormality, consider lateral ischemia Prolonged QT Abnormal ECG When compared with ECG of 11-NOV-2020 07:41, Incomplete right bundle branch block is no longer Present Referred By: Kathy Mcgee Electronically Signed By:Marco A Harris
--- NOTE | 2023-04-05 09:44 | ED_ITS ---
HPI - SOB/Dyspnea General Chief Complaint: Dyspnea Stated Complaint: DIFFICULTY BREATHING Time Seen by Provider: 04/05/23 09:18 Source: patient Mode of arrival: EMS History of Present Illness HPI Narrative: 63-year-old female who is brought in for increasing shortness of breath since Sunday, on review of documentation appears that she was evaluated on Sunday for head injury. Patient reports she wears 3 L of nasal cannula at home, and walks with a walker and cane. She denies any fever or chills, denies any alcohol use but does report an episode of vomiting last night but states she has continued to take her medication as prescribed. Related Data Home Medications Medication Instructions Recorded Confirmed multivitamin 1 tab PO DAILY 12/27/20 04/02/23 nicotine 14 mg/24 hr daily 21 mg transdermal DAILY 06/15/21 04/02/23 transdermal patch cholecalciferol (vitamin D3) 25 25 mcg PO DAILY 08/01/21 04/02/23 mcg (1,000 unit) capsule Previous Rx's Medication Instructions Recorded albuterol sulfate 90 mcg/actuation 2 puff inhalation Q4-6H PRN 05/12/21 aerosol inhaler (Ventolin HFA) shortness of breath or wheezing #3 ea divalproex 250 mg tablet,delayed 250 mg PO BID #180 tabs 04/06/22 release apixaban 5 mg tablet (Eliquis) 5 mg PO BID #180 tabs 07/18/22 diltiazem HCl 120 mg 120 mg PO BID 90 days #180 caps 07/18/22 capsule,extended release 12 hr umeclidinium 62.5 mcg/actuation 1 inh inhalation Q24H #30 ea 07/18/22 blister powder for inhalation (Incruse Ellipta) baclofen 20 mg tablet 20 mg PO TID #90 tabs 09/04/22 dronedarone 400 mg tablet (Multaq) 400 mg PO BID #180 tabs 12/27/22 Allergies Allergy/AdvReac Type Severity Reaction Status Date / Time No Known Allergies Allergy Verified 04/04/23 02:30 Review of Systems Review of Systems: Pertinent positives and negatives as stated in HPI PMFSH Past Medical History Source: nursing notes reviewed Medical History Asthma Atrial flutter with rapid ventricular response Chronic respiratory failure COPD (chronic obstructive pulmonary disease) CVA (cerebral vascular accident) Enlarged RV (right ventricle) Exercise hypoxemia Hypoxemia Seizure Tobacco use Surgical History History of Family History Family History Mother Colon cancer Social History Social History Household Members: None Housing: Apartment Do you presently have visiting nurse or other home services: No Alcohol intake: former Patient Tobacco Use Status: Former Tobacco user Years Smoked: 46 Smoked in Last 30 Days: No e-Cigarette/Vaping Use: Never Used Second Hand Smoke Exposure: Yes Use of substances other than those prescribed or required for medical reasons: No Advance Directives: Yes Advance Directives on File: Yes Advance Directives Date on File: 11/08/20 service: No Current occupational status: disabled Cognitive needs: Yes (walker) Hearing needs: No Vision needs: Yes (glasses) Physical Exam Vital Signs: Vital Signs: Last Vital Signs Temp 97.7 F 04/05/23 09:21 Pulse 96 04/05/23 10:08 Resp 24 H 04/05/23 10:54 BP 95/50 L 04/05/23 09:21 Pulse Ox 96 04/05/23 09:27 O2 Del Method Non-Rebreather Ma sk 04/05/23 09:27 O2 Flow Rate 10 04/05/23 09:27 Oxygen Flow Rate 10 04/05/23 09:21 BMI result Body Mass Index 24.9 VITAL SIGNS: Reviewed. GENERAL: Well developed, well nourished, in no acute distress. HEAD: Normocephalic/atraumatic EYES: PERRLA, EOMI EARS: Ext canals without abnormality, TMs non-bulging and non-erythematous NOSE: Nares patent bilateral OROPHARYNX: no oral lesions noted, posterior pharynx clear, mucosa is dry NECK: Supple, no adenopathy LUNGS: Patient's breath sounds are decrease, I do not appreciate any rales/crackles/expiratory wheeze. Patient is noted to be mildly tachypneic. SpO2<91> on 3 L nasal cannula CARDIOVASCULAR: Regular rate and rhythm without noted murmurs, no JVD or lower extremity edema. ABDOMEN: Soft, non-tender, non-distended with bowel sounds. MUSCULOSKELETAL: No tenderness, deformities, or effusions noted on gross inspection. EXTREMITIES: No cyanosis, clubbing or edema. SKIN: Inspection of the skin reveals no rashes, NEUROLOGIC: Alert and oriented x 4. Strength and sensation to light touch were grossly intact x 4. Medications Administered Discontinued Medications Generic Name Dose Route Start Last Admin Trade Name Vamshiq PRN Reason Stop Dose Admin Albuterol Sulfate 7.5 mg/ 0 mg 04/05/23 09:45 04/05/23 10:05 Albuterol/Ipratropium 3 ml INHALE 04/05/23 09:46 7.5 each ONCE ONE Administration Methylprednisolone Sodium Succinate 125 mg 04/05/23 09:47 04/05/23 10:18 Methylprednisolone Sod Succ 125 Mg/2 Ml Vial IVPUSH 04/05/23 09:48 125 mg ONCE ONE Administration Medical Decision Making Medical Decision Making [facility] Narrative: 0950: This is a 63-year-old female with history and clinical presentation, DDX: CHF, COPD, ACS, pneumonia, viral syndrome. 1029: Informed by lab the patient's lactic acid was 3.7 and troponin 2571.5. 1040: I discussed case briefly with Dr. Harris who thinks that this may be Takutsubo and recommends stat complete echo and he will see the patient. I reviewed all investigations and hematologic indices are negative for leukocytosis although there is a mild left shift and no anemia or thrombocyt openia. So I do not strongly suspect in the absence of elevated temperature that there is a relation to pneumonia. And although there may be a component of COPD in this patient's the pCO2 is appropriate for somebody with COPD and pH- 7.37. Patient is receiving DuoNebs for this and has also received Solu-Medrol. As she does not have fever, chills or any leukocytosis will refrain from administering antibiotics at this time. She also denies any increase in phlegm production. Patient did take her Eliquis this morning and coagulation studies are consistent with chronic anticoagulation. Chemistry indices do not demonstrate any LYNN or electrolyte derangements although there is a noted lactic acidosis that is likely secondary to hypoxia and underlying cardiac condition that after speaking with Cardiology is suspected to be Takutsubo. Patient will be placed on a heparin drip but not bolused as she did take her Eliquis this morning. Patient denies any alcohol use and on review of chest x-ray there is not x-ray evidence of acute pneumonia or fluid overload and the noted opacities in the right middle and lower lobes are consistent with prior from 2020. Troponin-2571.5 and has been addressed as above. BNP is significantly elevated at 3018, but there is no objective or clinical evidence of fluid overload and will refrain from administering Lasix at this time and Cardiology is making same recommendations. 1116: I have contacted the inpatient hospitalist who accepts admission. Differential Diagnosis Differential Diagnoses: The differential diagnosis associated with the presentation includes Please see the discussion above Admission/Observation Consideration of admission/observation: Escalation of care including admission/observation considered Please see the discussion above Consult Healthcare Provider Management of the patient was discussed with: Hospitalist and Outside Cutter Hand Please see the discussion above Lab Data MDM Lab Attestation statement: I reviewed the patient's lab results. Please see the discussion above 04/05/23 09:43 04/05/23 09:43 Labs: Lab Results 04/05/23 04/05/23 04/05/23 Range/Units 09:43 09:43 09:43 WBC 10.8 (4.8-10.8) X10*3/uL RBC 4.39 (4.20-5.50) X10*6/uL Hgb 13.4 (12.0-16.0) g/dl Hct 40.6 (37.0-47.0) % MCV 92.5 (80.0-98.0) fL MCH 30.5 (27.0-33.0) pg MCHC 33.0 (31.0-35.0) g/dl RDW 13.2 (11.0-16.0) % Plt Count 300 (160-400) X10*3/uL MPV 10.6 (9.4-12.3) fL Immature Gran % (Auto) 0.6 H (0.0-0.4) % Neut % (Auto) 75.3 H (45-73) % Lymph % (Auto) 16.8 L (20-40) % Waller % (Auto) 7.1 (2-11) % Eos % (Auto) 0.0 (0-4) % Baso % (Auto) 0.2 (0-2) % Lymph # (Auto) 1.8 (1.2-4.9) X10*3/uL Waller # (Auto) 0.8 (0.1-1.2) X10*3/uL Eos # (Auto) 0.0 (0.0-0.4) X10*3/uL Baso # (Auto) 0.0 (0.0-0.2) X10*3/uL Abs Immat Gran (auto) 0.07 H (0.00-0.03) X10*3/uL Absolute Neuts (auto) 8.2 (2.0-8.3) x10*3/uL Absolute Nucleated RBC 0.000 (0.0-0.012) X10*3/uL Nucleated RBC % (auto) 0.0 (0.0-0.2) /100WBC PT (11.1-13.3) SEC INR (0.9-1.1) VBG pH (7.32-7.43) VBG pCO2 mmHg VBG pO2 mmHg VBG HCO3 (22-26) mmol/L VBG O2 Saturation % VBG Base Excess mmol/L Sodium 139 (135-145) mmol/L Potassium 5.0 (3.3-5.1) mmol/L Chloride 102 (96-108) mmol/L Carbon Dioxide 22 (22-29) mmol/L Anion Gap 20 (12-20) BUN 29 H (9-16) mg/dL Creatinine 1.26 (0.5-1.4) mg/dL Estim Creat Clear Calc 43.9 Estimated GFR 43 Random Glucose 128 H (60-115) mg/dL Lactic Acid (0.5-2.0) mmol/L Calcium 11.0 H D (8.4-10.2) mg/dL Magnesium 2.2 (1.6-2.6) mg/dL Total Bilirubin 0.7 (0.0-1.0) mg/dL AST 792 H (5-31) U/L ALT 746 H (0-31) U/L Alkaline Phosphatase 41 (39-117) U/L Troponin I High Sens (<3.5-17.0) ng/L B-Natriuretic Peptide 3018 H (<100) pg/mL Total Protein 7.4 (6.5-8.0) g/dL Albumin 4.2 (3.5-5.0) g/dL 04/05/23 04/05/23 04/05/23 Range/Units 09:43 09:43 09:43 WBC (4.8-10.8) X10*3/uL RBC (4.20-5.50) X10*6/uL Hgb (12.0-16.0) g/dl Hct (37.0-47.0) % MCV (80.0-98.0) fL MCH (27.0-33.0) pg MCHC (31.0-35.0) g/dl RDW (11.0-16.0) % Plt Count (160-400) X10*3/uL MPV (9.4-12.3) fL Immature Gran % (Auto) (0.0-0.4) % Neut % (Auto) (45-73) % Lymph % (Auto) (20-40) % Waller % (Auto) (2-11) % Eos % (Auto) (0-4) % Baso % (Auto) (0-2) % Lymph # (Auto) (1.2-4.9) X10*3/uL Waller # (Auto) (0.1-1.2) X10*3/uL Eos # (Auto) (0.0-0.4) X10*3/uL Baso # (Auto) (0.0-0.2) X10*3/uL Abs Immat Gran (auto) (0.00-0.03) X10*3/uL Absolute Neuts (auto) (2.0-8.3) x10*3/uL Absolute Nucleated RBC (0.0-0.012) X10*3/uL Nucleated RBC % (auto) (0.0-0.2) /100WBC PT 19.1 H (11.1-13.3) SEC INR 1.6 H (0.9-1.1) VBG pH (7.32-7.43) VBG pCO2 mmHg VBG pO2 mmHg VBG HCO3 (22-26) mmol/L VBG O2 Saturation % VBG Base Excess mmol/L Sodium (135-145) mmol/L Potassium (3.3-5.1) mmol/L Chloride (96-108) mmol/L Carbon Dioxide (22-29) mmol/L Anion Gap (12-20) BUN (9-16) mg/dL Creatinine (0.5-1.4) mg/dL Estim Creat Clear Calc Estimated GFR Random Glucose (60-115) mg/dL Lactic Acid 3.7 H* (0.5-2.0) mmol/L Calcium (8.4-10.2) mg/dL Magnesium (1.6-2.6) mg/dL Total Bilirubin (0.0-1.0) mg/dL AST (5-31) U/L ALT (0-31) U/L Alkaline Phosphatase (39-117) U/L Troponin I High Sens 2571.5 H* (<3.5-17.0) ng/L B-Natriuretic Peptide (<100) pg/mL Total Protein (6.5-8.0) g/dL Albumin (3.5-5.0) g/dL 04/05/23 Range/Units 09:45 WBC (4.8-10.8) X10*3/uL RBC (4.20-5.50) X10*6/uL Hgb (12.0-16.0) g/dl Hct (37.0-47.0) % MCV (80.0-98.0) fL MCH (27.0-33.0) pg MCHC (31.0-35.0) g/dl RDW (11.0-16.0) % Plt Count (160-400) X10*3/uL MPV (9.4-12.3) fL Immature Gran % (Auto) (0.0-0.4) % Neut % (Auto) (45-73) % Lymph % (Auto) (20-40) % Waller % (Auto) (2-11) % Eos % (Auto) (0-4) % Baso % (Auto) (0-2) % Lymph # (Auto) (1.2-4.9) X10*3/uL Waller # (Auto) (0.1-1.2) X10*3/uL Eos # (Auto) (0.0-0.4) X10*3/uL Baso # (Auto) (0.0-0.2) X10*3/uL Abs Immat Gran (auto) (0.00-0.03) X10*3/uL Absolute Neuts (auto) (2.0-8.3) x10*3/uL Absolute Nucleated RBC (0.0-0.012) X10*3/uL Nucleated RBC % (auto) (0.0-0.2) /100WBC PT (11.1-13.3) SEC INR (0.9-1.1) VBG pH 7.37 (7.32-7.43) VBG pCO2 37 mmHg VBG pO2 73 mmHg VBG HCO3 22 (22-26) mmol/L VBG O2 Saturation 89.0 % VBG Base Excess -2.5 mmol/L Sodium (135-145) mmol/L Potassium (3.3-5.1) mmol/L Chloride (96-108) mmol/L Carbon Dioxide (22-29) mmol/L Anion Gap (12-20) BUN (9-16) mg/dL Creatinine (0.5-1.4) mg/dL Estim Creat Clear Calc Estimated GFR Random Glucose (60-115) mg/dL Lactic Acid (0.5-2.0) mmol/L Calcium (8.4-10.2) mg/dL Magnesium (1.6-2.6) mg/dL Total Bilirubin (0.0-1.0) mg/dL AST (5-31) U/L ALT (0-31) U/L Alkaline Phosphatase (39-117) U/L Troponin I High Sens (<3.5-17.0) ng/L B-Natriuretic Peptide (<100) pg/mL Total Protein (6.5-8.0) g/dL Albumin (3.5-5.0) g/dL Independent Interpretation I performed an independent interpretation of an: EKG Interpretation: Sinus rhythm with PACs, HR-95, no STEMI, T-wave inversions noted in multiple leads Radiology Impression Discussion of test interpretation with radiology: I have reviewed the radiologist's reading. Radiologist Impression: Please see the discussion above External Record Review External record reviewed: Outpatient record and Prior outpatient labs Chronic Conditions Patient?s care impacted by: Hypertension and Other COPD Critical Care Time Critical Care Time Critical Care Time: Yes Total Critical Care Time: 45 Attestation: I personally attest to this time spent taking care of the patient. Discharge Plan Discharge Clinical Impression: Takotsubo cardiomyopathy, COPD exacerbation, Acute respiratory failure Patient Disposition: Admitted As Inpatient Prescriptions: No Action albuterol sulfate [Ventolin HFA] 90 mcg/actuation HFA aerosol inhaler 2 puff inhalation Q4-6H PRN (Reason: shortness of breath or wheezing) Qty: 3 3RF divalproex 250 mg tablet,delayed release (DR/EC) 250 mg PO BID Qty: 180 8RF Eliquis 5 mg tablet 5 mg PO BID Qty: 180 3RF diltiazem HCl 120 mg capsule,extended release 12 hr 120 mg PO BID 90 Days Qty: 180 3RF Incruse Ellipta 62.5 mcg/actuation blister with device 1 inh inhalation Q24H Qty: 30 8RF baclofen 20 mg tablet 20 mg PO TID Qty: 90 8RF Multaq 400 mg tablet 400 mg PO BID Qty: 180 3RF multivitamin Tablet 1 tab PO DAILY cholecalciferol (vitamin D3) 25 mcg (1,000 unit) capsule 25 mcg PO DAILY nicotine 14 mg/24 hr patch 24 hour 21 mg transdermal DAILY
[2023-04-05 09:51] LABS: MANUAL DIFF FLAG NO
[2023-04-05 09:54] LABS: VBG Base Excess -2.5 mmol/L; VBG HCO3 22 mmol/L (22-26); VBG pCO2 37 mmHg; VBG pH 7.37 (7.32-7.43); VBG pO2 73 mmHg
[2023-04-05 09:54] LABS: Basophils Percent Auto 0.2 % (0-2); Hematocrit 40.6 % (37.0-47.0); Hemoglobin 13.4 g/dl (12.0-16.0); Imm Gran Abs Auto 0.07 X10*3/uL (0.00-0.03); Imm Gran Pct Auto 0.6 % (0.0-0.4); Lymphocytes Absolute Auto 1.8 X10*3/uL (1.2-4.9); Lymphocytes Percent Auto 16.8 % (20-40); Mean Corpuscular Hemoglobin 30.5 pg (27.0-33.0); Mean Corpuscular Volume 92.5 fL (80.0-98.0); Mean Platelet Volume 10.6 fL (9.4-12.3); Monocytes Absolute Auto 0.8 X10*3/uL (0.1-1.2); Monocytes Percent Auto 7.1 % (2-11); Neutrophils Absolute Auto 8.2 x10*3/uL (2.0-8.3); Neutrophils Percent Auto 75.3 % (45-73); Platelet Count 300 X10*3/uL (160-400); Red Blood Count 4.39 X10*6/uL (4.20-5.50); Red Cell Distribution Width 13.2 % (11.0-16.0); White Blood Count 10.8 X10*3/uL (4.8-10.8)
[2023-04-05 09:55] LABS: Venous Blood Gas Refer to POC result
[2023-04-05] MEDS: Albuterol Sulfate 7.5 MG, Albuterol/Iprat 2.5/0.5MG 3 ML 3 ML INHALE (10:05)
[2023-04-05 10:08] LABS: INTERNATIONAL NORM RATIO 1.6 (0.9-1.1); Prothrombin Time 19.1 SEC (11.1-13.3)
[2023-04-05 10:16] LABS: Alanine Aminotransferase 746 U/L (0-31); Albumin Level 4.2 g/dL (3.5-5.0); Alkaline Phosphatase 41 U/L (39-117); Anion Gap 20 (12-20); Aspartate Amino Transferase 792 U/L (5-31); Bilirubin Total 0.7 mg/dL (0.0-1.0); Blood Urea Nitrogen 29 mg/dL (9-16); Carbon Dioxide 22 mmol/L (22-29); Chloride 102 mmol/L (96-108); Creatinine Clr Calc Pharmacy 43.9; Estimated Glomerular Filt Rate 43; Glucose Random 128 mg/dL (60-115); Magnesium 2.2 mg/dL (1.6-2.6); Sodium 139 mmol/L (135-145); Total Protein 7.4 g/dL (6.5-8.0)
[2023-04-05] MEDS: methylPREDNISolone Sod Succ 125 MG/2 ML VIAL IVPUSH (10:18)
[2023-04-05 10:20] LABS: B Type Natriuretic Peptide 3018 pg/mL (<100)
[2023-04-05 10:38] LABS: Troponin-I High Sensitivity 2571.5 ng/L (<3.5-17.0)
[2023-04-05 10:39] LABS: Lactic Acid 3.7 mmol/L (0.5-2.0)
--- NOTE | 2023-04-05 10:41 | CA_ITS ---
Transthoracic Echocardiogram Patient (Last, First, Middle): Ruby Mahan M Gender: Female Date of : 1960 Age: 63 Procedure Date: 04/05/2023 Procedure Type: Transthoracic Echocardiogram Location: ER Height: 170.18 cm Weight: 70.76 kg BSA: 1.82 m2 Heart Rate: bpm BP: 95 / 50 mmHg Bacon Skin Lifter: TO Referring MD: Kathy Mcgee MD Symptoms: SOB, EKG changes Study Quality: Technically Difficult/contrast Conclusions: - Normal left ventricular cavity size. There is normal left ventricular wall thickness. The left ventricular systolic function is severely decreased. The visually estimated ejection fraction is between 15-20%. - The entire apex, the mid anterior, mid inferior, mid anterolateral, mid inferoseptal, mid anteroseptal, and mid inferolateral segments are akinetic. - Normal right ventricular cavity size. Moderate RV dysfunction. Free wall is down. - Biventricular takotsubo. Findings Procedure Information Contrast agent, definity, is being given per protocol without apparent complications. Left Ventricle Normal left ventricular cavity size. There is normal left ventricular wall thickness. The left ventricular systolic function is severely decreased. The visually estimated ejection fraction is between 15-20%. There is evidence of regional wall motion abnormalities. Diastolic function is indeterminate on the basis of available data. Wall Motion Rest Echo Findings The entire apex, the mid anterior, mid inferior, mid anterolateral, mid inferoseptal, mid anteroseptal, and mid inferolateral segments are akinetic. Right Ventricle Normal right ventricular cavity size. Moderate RV dysfunction. Free wall is down. Atria The left atrium is mildly dilated. Aortic Valve Normal aortic valve structure and function. There is no aortic valve stenosis. There is no aortic valve regurgitation. Mitral Valve There is mild mitral annular calcification. There is no mitral valve regurgitation. There is no mitral valve stenosis. Pulmonic Valve The pulmonic valve is likely normal. Tricuspid Valve Normal tricuspid valve structure. Significantly elevated right atrial pressure. There is no evidence of pulmonary hypertension. Great Vessels All visible segments of the aorta are normal in size. The visualized portions of the pulmonary artery and branches are normal. Venous The inferior vena cava is dilated and does not collapse with inspiration. Pericardium/Pleural There is no evidence of pericardial effusion. Prior Study Comparison Changes noted compared to prior study dated: 01/31/2022. Changes consistent with biventricular takotsubo. Measurements 2D Linear Measurements IVSd: 0.72 0.6-0.9/0.6-1.0 cm LVIDd: 4.65 3.9-5.3/4.2-5.9 cm LVIDd Index: 2.55 2.4-3.2/2.2-3.1 cm/m2 LVIDs: 3.96 2.0-3.6 cm LVPWd: 0.83 0.7-1.1 cm LA Diam: 3.20 2.7-3.8/3.0-4.0 cm LAIDs Index: 1.76 1.5-2.3 cm/m2 LV Mass: 142.70 67-162/88-224 g LV Mass Index: 78.40 43-95/49-115 g/m2 LVOT Diam: 2.10 3.0+(-)1.3 cm 2D Systolic Function EF 4C: 18.80 >55% EF 2C: 14.60 >55% EF BiP: 17.20 >55% Mitral Valve MV Pk E: 1.21 MV Decel Time: 110.00 E'Lateral: 8.27 E'Medial: 4.46 E/E' Med: 27.10 E/E' Lat: 14.60 PHT: 32.00 MVA PHT: 6.88 Decel Cross: 10.96 Aortic Valve AoV Pk Matthew: 0.97 AoV Mn Matthew: 0.65 AoV VTI: 0.12 AoV Pk Grad: 4.00 Aov Mn Grad: 2.00 MOMO Cont.VTI: 2.25 LVOT LVOT Pk Matthew: 0.68 LVOT Mn Matthew: 0.44 LVOT VTI: 0.08 LVOT Pk Grad: 2.00 LVOT Mn Grad: 1.00 LVOT Diam: 2.10 LVOT Area: 3.46 Diastolic Function MV Pk E: 1.21 E'Medial: 4.46 E/E' Med: 27.10 E' Laterial: 8.27 E/E' Lat: 14.60 Right Ventricle TAPSE (mm): 12.60 TVS' Matthew: 7.07 Tricuspid Valve TR Pk Matthew: 2.51 TR Pk Grad: 25.00 RA Press: 8.00 RVSP: 33.00 Great Vessels Aorta Sinus of Valsalva: 2.63 2.0-3.5 cm Ao Asc: 2.50 2.1-3.4 cm Updated in Other Vendor System with Status of Final Marco A Harris MD electronically signed on 04/05/2023 3:15:41 PM with status of Final
--- NOTE | 2023-04-05 10:58 | PC.NURSE ---
patient placed on high flow oxygen, satting at 92% patient having echocardiogram at bedside
[2023-04-05] MEDS: Albuterol Sulfate 5 MG, Albuterol/Iprat 2.5/0.5MG 3 ML 3 ML INHALE (11:31)
[2023-04-05 11:46] LABS: Reflex Lactate? Lactic Acid Added
--- NOTE | 2023-04-05 12:07 | PHA.MEDREC ---
Pharmacy Consult ? Medication Reconciliation Pharmacy has completed the medication reconciliation. Spoke to patient to confirm meds.
[2023-04-05 12:39] LABS: Hematocrit 42.5 % (37.0-47.0); INTERNATIONAL NORM RATIO 1.5 (0.9-1.1); Mean Corpuscular HGB Conc 32.9 g/dl (31.0-35.0); Mean Corpuscular Hemoglobin 30.9 pg (27.0-33.0); Mean Corpuscular Volume 93.8 fL (80.0-98.0); Mean Platelet Volume 11.1 fL (9.4-12.3); Platelet Count 298 X10*3/uL (160-400); Prothrombin Time 18.8 SEC (11.1-13.3); Red Blood Count 4.53 X10*6/uL (4.20-5.50); Red Cell Distribution Width 13.3 % (11.0-16.0); White Blood Count 13.8 X10*3/uL (4.8-10.8)
[2023-04-05 12:47] LABS: ~Lactic Acid-LAB USE ONLY 6.2 mmol/L (0.5-2.0)
[2023-04-05] MEDS: Heparin Sodium,Porcine/1/2NS 25,000 UNIT/250 ML IV.SOLN 8.64 UNIT IVCONT (13:10)
[2023-04-05 13:43] LABS: Appearance Urine Clear; Color Urine Dark Yellow; Glucose Urine UA Negative (Negative); Leukocyte Esterase Urine Negative (Negative); Nitrite Urine Negative (Negative); PH 5.5 (5.0-9.0); Specific Gravity - Urine >= 1.030 (1.005-1.025); UMIC TRIGGER UACC YES; Urine Blood Negative (Negative); Urine Ketones 15 mg/dL (Negative); Urine Protein 30 (1+) mg/dL (Neg-Trace)
[2023-04-05 13:58] LABS: Bacteria Urine None Seen (None Seen); Squamous Epithelial Cell Urine 0-2 /HPF (0-2); WBC Urine 0-5 /HPF (0-5)
[2023-04-05 14:22] LABS: Reflex Lactate? 2 Y
[2023-04-05 14:25] LABS: Influenza A PCR NEGATIVE (Negative); Influenza B PCR NEGATIVE (Negative); Resp Syncy Virus RNA Qual PCR NEGATIVE (Negative); SARS COV2 PCR INHOUSE NEGATIVE (Negative)
--- NOTE | 2023-04-05 15:05 | P.CONCA_ITS ---
History of Present Illness History of Present Illness Date of Service: 04/05/23 Requesting physician: Bi Lofton Chief complaint: NSTEMI Narrative: [age] year female who presented to [facility] yesterday with mechanical fall. She was discharged home. She said at home she was feeling short of breath which progressively got worse and she came to the emergency department. She has background of COPD. She is on high-flow oxygen at this point. Chest x-ray is not showing significant infiltrate or heart failure. She is denying any chest discomfort. She has diffuse T-wave inversions on the EKG with prolonged QT interval. She also has elevated BNP as well as high sensitivity troponin levels. She is denying any discomfort at this point in the chest. Echocardiography was reviewed which is showing severe LV dysfunction with EF 15- 20% and imaging findings are consistent with biventricular takotsubo involving the left and right ventricle. [facility] Past Medical History Medical History Asthma Atrial flutter with rapid ventricular response Chronic respiratory failure COPD (chronic obstructive pulmonary disease) CVA (cerebral vascular accident) Enlarged RV (right ventricle) Exercise hypoxemia Hypoxemia Seizure Tobacco use Family History Family History Mother Colon cancer Surgical History Surgical History History of Social History Social History Household Members: None Housing: Apartment Do you presently have visiting nurse or other home services: No Alcohol intake: former Patient Tobacco Use Status: Former Tobacco user Years Smoked: 46 Smoked in Last 30 Days: No e-Cigarette/Vaping Use: Never Used Second Hand Smoke Exposure: Yes Use of substances other than those prescribed or required for medical reasons: No Advance Directives: Yes Advance Directives on File: Yes Advance Directives Date on File: 11/08/20 service: No Current occupational status: disabled Cognitive needs: Yes (walker) Hearing needs: No Vision needs: Yes (glasses) Meds Allergies Allergy/AdvReac Type Severity Reaction Status Date / Time No Known Allergies Allergy Verified 04/04/23 02:30 Active Medications: Current Medications Heparin Sodium (Porcine) (Heparin Sodium,Porcine 5,000 Unit/Ml Vial) 2,900 unit 40 unit/kg (2900 unit) IVPUSH PROTOCOL BOLUS PRN; Protocol PRN Reason: 40 unit/kg - Heparin Protocol Heparin Sodium (Porcine) (Heparin Sodium,Porcine 5,000 Unit/Ml Vial) 5,800 unit 80 unit/kg (5800 unit) IVPUSH PROTOCOL BOLUS PRN; Protocol PRN Reason: 80 unit/kg - Heparin Protocol Heparin Sodium/Sodium Chloride (Heparin Sodium,Porcine/1/2ns) 25,000 unit in 250 mls @ 0 mls/hr IVCONT .Q0M VIANEY; Protocol Last Admin: 04/05/23 13:10 Dose: 12 units/kg/hr, 8.64 mls/hr Home Medications Medication Instructions Recorded Confirmed Last Taken Type multivitamin 1 tab PO DAILY 12/27/20 04/05/23 04/05/23 09:00 History cholecalciferol (vitamin D3) 25 25 mcg PO DAILY 08/01/21 04/05/23 04/05/23 09:00 History mcg (1,000 unit) capsule acetaminophen 325 mg tablet 650 mg PO Q6H PRN Pain 04/05/23 04/05/23 Unknown History (Tylenol) albuterol sulfate 90 mcg/actuation 2 puff inhalation Q6H PRN 04/05/23 04/05/23 Unknown History aerosol inhaler (Ventolin HFA) shortness of breath or wheezing nicotine 21 mg/24 hr daily 1 patch transdermal DAILY 04/05/23 04/05/23 04/05/23 09:00 History transdermal patch Physical Exam Vital Signs: Vital Signs: Last Vital Signs Temp 97.6 F 04/05/23 13:30 Pulse 118 H 04/05/23 13:30 Resp 19 04/05/23 13:30 BP 120/45 L 04/05/23 13:30 Pulse Ox 93 04/05/23 13:30 O2 Del Method High Flow Nasal C annula 04/05/23 13:30 O2 Flow Rate 35 04/05/23 13:30 Oxygen Flow Rate 10 04/05/23 09:21 BMI result Body Mass Index 24.9 GENERAL APPEARANCE: in no acute distress, Elias high-flow oxygen. NECK: no carotid bruit, no jugular venous distention. SKIN: no suspicious lesions, warm and dry. HEART: no murmurs, regular rate and rhythm. LUNGS: Mild expiratory wheezes. ABDOMEN: soft, nontender. EXTREMITIES: no edema. PERIPHERAL PULSES: equal. NEUROLOGIC: No gross deficits, AAO X 3 Objective Labs and Meds 04/05/23 Unknown 04/05/23 09:43 Lab results: Laboratory Results - last 24 hr 04/05/23 04/05/23 04/05/23 09:43 09:43 09:43 WBC 10.8 RBC 4.39 Hgb 13.4 Hct 40.6 MCV 92.5 MCH 30.5 MCHC 33.0 RDW 13.2 Plt Count 300 MPV 10.6 Immature Gran % (Auto) 0.6 H Neut % (Auto) 75.3 H Lymph % (Auto) 16.8 L [place] % (Auto) 7.1 Eos % (Auto) 0.0 Baso % (Auto) 0.2 Lymph # (Auto) 1.8 [place] # (Auto) 0.8 Eos # (Auto) 0.0 Baso # (Auto) 0.0 Abs Immat Gran (auto) 0.07 H Absolute Neuts (auto) 8.2 Absolute Nucleated RBC 0.000 Nucleated RBC % (auto) 0.0 PT INR aPTT Heparin Protocol VBG pH VBG pCO2 VBG pO2 VBG HCO3 VBG O2 Saturation VBG Base Excess Sodium 139 Potassium 5.0 Chloride 102 Carbon Dioxide 22 Anion Gap 20 BUN 29 H Creatinine 1.26 Estim Creat Clear Calc 43.9 Estimated GFR 43 Random Glucose 128 H Lactic Acid Lactic Acid F/U @ 2Hr Calcium 11.0 H D Magnesium 2.2 Total Bilirubin 0.7 AST 792 H ALT 746 H Alkaline Phosphatase 41 Total Creatine Kinase 202 H Troponin I High Sens B-Natriuretic Peptide 3018 H Total Protein 7.4 Albumin 4.2 Urine Color Urine Appearance Urine pH Ur Specific Sigel Urine Protein Urine Glucose (UA) Urine Ketones Urine Blood Urine Nitrite Ur Leukocyte Esterase Urine RBC Urine WBC Ur Squamous Epith Cells Urine Bacteria Hyaline Casts Influenza Type A (PCR) Influenza Type B (PCR) RSV RNA Qual (PCR) SARS-CoV-2 RNA (RT-PCR) 04/05/23 04/05/23 04/05/23 09:43 09:43 09:43 WBC RBC Hgb Hct MCV MCH MCHC RDW Plt Count MPV Immature Gran % (Auto) Neut % (Auto) Lymph % (Auto) [place] % (Auto) Eos % (Auto) Baso % (Auto) Lymph # (Auto) [place] # (Auto) Eos # (Auto) Baso # (Auto) Abs Immat Gran (auto) Absolute Neuts (auto) Absolute Nucleated RBC Nucleated RBC % (auto) PT 19.1 H INR 1.6 H aPTT Heparin Protocol VBG pH VBG pCO2 VBG pO2 VBG HCO3 VBG O2 Saturation VBG Base Excess Sodium Potassium Chloride Carbon Dioxide Anion Gap BUN Creatinine Estim Creat Clear Calc Estimated GFR Random Glucose Lactic Acid 3.7 H* Lactic Acid F/U @ 2Hr Calcium Magnesium Total Bilirubin AST ALT Alkaline Phosphatase Total Creatine Kinase Troponin I High Sens 2571.5 H* B-Natriuretic Peptide Total Protein Albumin Urine Color Urine Appearance Urine pH Ur Specific Sigel Urine Protein Urine Glucose (UA) Urine Ketones Urine Blood Urine Nitrite Ur Leukocyte Esterase Urine RBC Urine WBC Ur Squamous Epith Cells Urine Bacteria Hyaline Casts Influenza Type A (PCR) Influenza Type B (PCR) RSV RNA Qual (PCR) SARS-CoV-2 RNA (RT-PCR) 04/05/23 04/05/23 04/05/23 09:45 13:09 13:09 WBC RBC Hgb Hct MCV MCH MCHC RDW Plt Count MPV Immature Gran % (Auto) Neut % (Auto) Lymph % (Auto) [place] % (Auto) Eos % (Auto) Baso % (Auto) Lymph # (Auto) [place] # (Auto) Eos # (Auto) Baso # (Auto) Abs Immat Gran (auto) Absolute Neuts (auto) Absolute Nucleated RBC Nucleated RBC % (auto) PT INR aPTT Heparin Protocol VBG pH 7.37 VBG pCO2 37 VBG pO2 73 VBG HCO3 22 VBG O2 Saturation 89.0 VBG Base Excess -2.5 Sodium Potassium Chloride Carbon Dioxide Anion Gap BUN Creatinine Estim Creat Clear Calc Estimated GFR Random Glucose Lactic Acid Lactic Acid F/U @ 2Hr Calcium Magnesium Total Bilirubin AST ALT Alkaline Phosphatase Total Creatine Kinase Troponin I High Sens B-Natriuretic Peptide Total Protein Albumin Urine Color Dark Yellow Urine Appearance Clear Urine pH 5.5 Ur Specific Sigel >= 1.030 H Urine Protein 30 (1+) H Urine Glucose (UA) Negative Urine Ketones 15 Urine Blood Negative Urine Nitrite Negative Ur Leukocyte Esterase Negative Urine RBC 3-5 H Urine WBC 0-5 Ur Squamous Epith Cells 0-2 Urine Bacteria None Seen Hyaline Casts 11-20 Influenza Type A (PCR) NEGATIVE Influenza Type B (PCR) NEGATIVE RSV RNA Qual (PCR) NEGATIVE SARS-CoV-2 RNA (RT-PCR) NEGATIVE 04/05/23 04/05/23 04/05/23 Unknown Unknown Unknown WBC 13.8 H RBC 4.53 Hgb 14.0 Hct 42.5 MCV 93.8 MCH 30.9 MCHC 32.9 RDW 13.3 Plt Count 298 MPV 11.1 Immature Gran % (Auto) Neut % (Auto) Lymph % (Auto) [place] % (Auto) Eos % (Auto) Baso % (Auto) Lymph # (Auto) [place] # (Auto) Eos # (Auto) Baso # (Auto) Abs Immat Gran (auto) Absolute Neuts (auto) Absolute Nucleated RBC 0.000 Nucleated RBC % (auto) 0.0 PT 18.8 H INR 1.5 H aPTT Heparin Protocol 31.0 L VBG pH VBG pCO2 VBG pO2 VBG HCO3 VBG O2 Saturation VBG Base Excess Sodium Potassium Chloride Carbon Dioxide Anion Gap BUN Creatinine Estim Creat Clear Calc Estimated GFR Random Glucose Lactic Acid Lactic Acid F/U @ 2Hr 6.2 H* Calcium Magnesium Total Bilirubin AST ALT Alkaline Phosphatase Total Creatine Kinase Troponin I High Sens B-Natriuretic Peptide Total Protein Albumin Urine Color Urine Appearance Urine pH Ur Specific Sigel Urine Protein Urine Glucose (UA) Urine Ketones Urine Blood Urine Nitrite Ur Leukocyte Esterase Urine RBC Urine WBC Ur Squamous Epith Cells Urine Bacteria Hyaline Casts Influenza Type A (PCR) Influenza Type B (PCR) RSV RNA Qual (PCR) SARS-CoV-2 RNA (RT-PCR) Imaging Radiologist's impression: Impressions Chest X-Ray 04/05/23 10:25 IMPRESSION: 1. Emphysematous COPD. 2. Chronic interstitial lung disease, with overall improvement in aeration, especially at the bases since 11/09/2020. 3. New thickened interlobular septae in the periphery of the right mid and lower lung zone. This nonspecific finding can be due to infection, fluid, and lymphangitic carcinomatosis, amongst other etiologies. 4. Cardiomegaly. Assessment and Plan (1) Takotsubo cardiomyopathy: Status: Acute (2) COPD exacerbation: Status: Acute Plan [age] year female who is presenting with dyspnea on background of mechanical fall yesterday. She has noticed to have significant EKG changes, elevated BNP and biomarkers. Echocardiography is consistent with takotsubo cardiomyopathy. She is short of breath and wheezing. She is also hypoxic and on high-flow oxygen at this point. Chest x-ray is not showing significant heart failure or infiltrate at this point. Hypoxia is likely due to COPD. Other p ossibilities can be pulmonary embolism but less likely as she has been taking anticoagulation. She was on Multaq, diltiazem and apixaban. Apixaban was held given the NSTEMI and she was given heparin but I think echocardiography is very much consistent with takotsubo cardiomyopathy at this point. Check troponin again to see if it is down trending. Can transition back to Eliquis tomorrow morning. Stop the diltiazem. Stop the Multaq. Both medication should not be given to the patient. Do not give any medication that can slow the heart because of tachycardia a somewhat compensatiry as EF is significantly low. We will follow along with you. Has shortness of breath improved then we will discuss whether we should transfer for diagnostic angiogram as takotsubo cardiomyopathy is a diagnosis requiring angiographically normal coronary arteries before we can be completely sure. Thank you for allowing me to participate in the care of your patient. Please feel free to contact me if you have any questions. Time Spent With Patient Time: Total time managing care of this patient today ____ minutes. Procedures Date of Service Date of Service: 04/05/23
[2023-04-05] MEDS: iohexoL 350 MG/ML 100 ML INFUS..BTL IV (15:13)
[2023-04-05 16:36] LABS: ~Lactic Acid-LAB USE ONLY 7.7 mmol/L (0.5-2.0)
[2023-04-05 16:59] LABS: Valproate 30.4 mcg/mL (50.0-100.0)
[2023-04-05 17:20] LABS: Acetaminophen LAB < 17 mcg/mL (<30); Salicylate < 5.0 mg/dL (15-30)
--- NOTE | 2023-04-05 17:39 | PC.NURSE ---
patient resting in bed, patient is on high flow nasal cannula 92. patient respirations are equal and unlabored. patient shows no signs of distress, alert and oriented x3
--- NOTE | 2023-04-05 18:25 | P.HPCC_ITS ---
History of Present Illness Date of Service: 04/06/23 Chief Complaint: Dyspnea 63-year-old lady with underlying history COPD 3 L supplemental oxygen dependent, seizure disorder, paroxysmal AFib on dronedarone, right ventricular dysfunction admitted on 04/05/2023 with dyspnea for several days. On ER evaluation patient with significant hypoxemia requiring high-flow nasal cannula 50% to maintain normal oximetry. Elevated transaminases, lactate, troponin, and BNP. On bedside echocardiogram newly reduced ejection fraction at 10-15% with Takotsubo physiology. CT angio chest with no evidence for pulmonary emboli. Patient started on heparin drip and admitted to the intensive care unit for close monitoring. Review of Systems Constitutional: Constitutional: Denies daytime sleepiness, Denies excessive sweating, Denies fatigue, Denies fever(s), Denies lethargy, Denies malaise, Denies night sweats, Denies snoring and Denies weight loss Eyes: Eyes: Denies blurry vision and Denies itchy eyes ENT: Denies nasal congestion, Denies post nasal drip, Denies sinus pain, Denies sinus pressure and Denies other ( Thrush) Cardiovascular: Cardiovascular: Denies chest pain, Denies pedal edema, Denies dyspnea, Reports dyspnea on exertion, Denies orthopnea and Denies paroxysmal nocturnal dyspnea Respiratory: Respiratory: Denies cough, Denies hemoptysis, Denies excessive phlegm production, Denies dyspnea, Reports dyspnea on exertion, Denies snoring and Denies wheezing Gastrointestinal: Gastrointestinal: Denies abdominal pain and Denies heartburn Musculoskeletal: Musculoskeletal: Denies myalgias, Denies arthralgias and Denies joint swelling Integumentary/Breasts: Skin/Breast: Denies rash Neurologic: Denies memory loss and Denies seizure-like activity Psychiatric: Psychiatric: Denies abnormal sleep pattern, Denies anxiety and Denies memory loss Endocrine: Endocrine: Denies excessive sweating, Denies fatigue and Denies heat intolerance Hematologic/Lymphatic: Hematologic/Lymphatic: Denies easy bruising Allergic/Immunologic: Allergic/Immunologic: Denies itchy eyes, Denies seasonal rhinorrhea and Denies wheezing PMFSH Past Medical History Medical History Asthma Atrial flutter with rapid ventricular response Chronic respiratory failure COPD (chronic obstructive pulmonary disease) COPD exacerbation CVA (cerebral vascular accident) Enlarged RV (right ventricle) Exercise hypoxemia Hypoxemia Seizure Tobacco use Family History Family History Mother Colon cancer Surgical History Surgical History History of Social History Social History Household Members: None Household Members Other:: LIVES ALONE IN APT Housing: Apartment Do you presently have visiting nurse or other home services: No Alcohol intake: former Patient Tobacco Use Status: Former Tobacco user Tobacco use type: Cigarette Years Smoked: 46 Smoked in Last 30 Days: No e-Cigarette/Vaping Use: Never Used Patient Interested in Nicotine Replacement: No Second Hand Smoke Exposure: No Use of substances other than those prescribed or required for medical reasons: No Currently Displaying Signs/Symptoms of Drug Intoxication Withdrawal: No Any prior treatment program specific to substance use: No Have you been hit, kicked, punched, or otherwise hurt by someone within the past year? If so, by whom?: No Do you feel safe in your current relationship?: No Current Relationship Is there a partner from a previous relationship who is making you feel unsafe now?: No Are you made to feel afraid or neglected: No Spiritual Healthcare Practices: NONE Christianity Healthcare Practices: NONE Cultural Healthcare Practices: NONE Advance Directives: Yes Advance Directives on File: Yes Advance Directives Date on File: 11/08/20 Do you have thoughts of harming others: None Do you have a plan to hurt others: No Plan Recently lost weight without trying: No Eating poorly because of decreased appetite: No Nutrition Risks: No Nutritional Risk Patient : No : No Poor oral hygiene: No service: No Current occupational status: disabled Cognitive needs: Yes (walker) Hearing needs: No Vision needs: Yes (glasses) Meds Allergies Allergy/AdvReac Type Severity Reaction Status Date / Time No Known Allergies Allergy Verified 04/04/23 02:30 Active Medications: Current Medications Heparin Sodium (Porcine) (Heparin Sodium,Porcine 5,000 Unit/Ml Vial) 2,900 unit 40 unit/kg (2900 unit) IVPUSH PROTOCOL BOLUS PRN; Protocol PRN Reason: 40 unit/kg - Heparin Protocol Heparin Sodium (Porcine) (Heparin Sodium,Porcine 5,000 Unit/Ml Vial) 5,800 unit 80 unit/kg (5800 unit) IVPUSH PROTOCOL BOLUS PRN; Protocol PRN Reason: 80 unit/kg - Heparin Protocol Heparin Sodium/Sodium Chloride (Heparin Sodium,Porcine/1/2ns) 25,000 unit in 250 mls @ 0 mls/hr IVCONT .Q0M [facility]; Protocol Last Admin: 04/05/23 13:10 Dose: 12 units/kg/hr, 8.64 mls/hr Furosemide 200 mg/ Sodium (Chloride) 100 mls @ 1 mls/hr IVCONT .Q24H [facility] Home Medications Medication Instructions Recorded Confirmed Last Taken Type multivitamin 1 tab PO DAILY 12/27/20 04/05/23 04/05/23 09:00 History cholecalciferol (vitamin D3) 25 25 mcg PO DAILY 08/01/21 04/05/23 04/05/23 09:00 History mcg (1,000 unit) capsule acetaminophen 325 mg tablet 650 mg PO Q6H PRN Pain 04/05/23 04/05/23 Unknown History (Tylenol) albuterol sulfate 90 mcg/actuation 2 puff inhalation Q6H PRN 04/05/23 04/05/23 Unknown History aerosol inhaler (Ventolin HFA) shortness of breath or wheezing nicotine 21 mg/24 hr daily 1 patch transdermal DAILY 04/05/23 04/05/23 04/05/23 09:00 History transdermal patch Physical Exam Vital Signs: Vital Signs: Last Vital Signs Temp 98.0 F 04/05/23 17:30 Pulse 108 H 04/05/23 17:30 Resp 22 H 04/05/23 17:30 BP 96/52 L 04/05/23 17:30 Pulse Ox 92 04/05/23 17:30 O2 Del Method High Flow Nasal C annula 04/05/23 17:30 O2 Flow Rate 35 04/05/23 17:30 Oxygen Flow Rate 10 04/05/23 09:21 BMI result Body Mass Index 24.9 Const: General: no acute distress and alert Nutritional Appearance: not obese Orientation/consciousness: Other orientation findings ( oriented) HEENT: Head: Yes atraumatic Eyes: General: appearance normal, both eyes and all related structures Sclerae: sclerae normal EOM: EOMs intact bilaterally Neck: Neck: Yes supple Lymphatic: no lymphadenopathy noted Resp: Effort & Inspection: normal respiratory effort ( on high-flow nasal cannula) and no use of accessory muscles Auscultation: clear to auscultation bilaterally Cardio: Rate: tachycardic Rhythm: regular rhythm Heart sounds: no gallops, no murmurs and no rubs Skin: General skin exam: other ( warm) Extrem: General: No clubbing, No cyanosis and Yes edema ( Trace bilateral) Results Labs 04/05/23 Unknown 04/05/23 09:43 Labs: Laboratory Results - last 24 hr 04/05/23 04/05/23 04/05/23 09:43 09:43 09:43 MCV 92.5 MCH 30.5 MCHC 33.0 RDW 13.2 Plt Count 300 MPV 10.6 Immature Gran % (Auto) 0.6 H Neut % (Auto) 75.3 H Lymph % (Auto) 16.8 L [place] % (Auto) 7.1 Eos % (Auto) 0.0 Baso % (Auto) 0.2 Lymph # (Auto) 1.8 [place] # (Auto) 0.8 Eos # (Auto) 0.0 Baso # (Auto) 0.0 Abs Immat Gran (auto) 0.07 H Absolute Neuts (auto) 8.2 Absolute Nucleated RBC 0.000 Nucleated RBC % (auto) 0.0 PT INR aPTT Heparin Protocol VBG pH VBG pCO2 VBG pO2 VBG HCO3 VBG O2 Saturation VBG Base Excess Anion Gap 20 Estim Creat Clear Calc 43.9 Estimated GFR 43 Random Glucose 128 H Lactic Acid Lactic Acid F/U @ 2Hr Lactic Acid F/U @ 4Hr Calcium 11.0 H D Magnesium 2.2 Total Bilirubin 0.7 AST 792 H ALT 746 H Alkaline Phosphatase 41 Total Creatine Kinase 202 H B-Natriuretic Peptide 3018 H Total Protein 7.4 Albumin 4.2 Urine Color Urine Appearance Urine pH Ur Specific [place] Urine Protein Urine Glucose (UA) Urine Ketones Urine Blood Urine Nitrite Ur Leukocyte Esterase Urine RBC Urine WBC Ur Squamous Epith Cells Urine Bacteria Hyaline Casts Salicylates Acetaminophen Valproic Acid Influenza Type A (PCR) Influenza Type B (PCR) RSV RNA Qual (PCR) SARS-CoV-2 RNA (RT-PCR) 04/05/23 04/05/23 04/05/23 09:43 09:43 09:45 MCV MCH MCHC RDW Plt Count MPV Immature Gran % (Auto) Neut % (Auto) Lymph % (Auto) [place] % (Auto) Eos % (Auto) Baso % (Auto) Lymph # (Auto) [place] # (Auto) Eos # (Auto) Baso # (Auto) Abs Immat Gran (auto) Absolute Neuts (auto) Absolute Nucleated RBC Nucleated RBC % (auto) PT 19.1 H INR 1.6 H aPTT Heparin Protocol VBG pH 7.37 VBG pCO2 37 VBG pO2 73 VBG HCO3 22 VBG O2 Saturation 89.0 VBG Base Excess -2.5 Anion Gap Estim Creat Clear Calc Estimated GFR Random Glucose Lactic Acid 3.7 H* Lactic Acid F/U @ 2Hr Lactic Acid F/U @ 4Hr Calcium Magnesium Total Bilirubin AST ALT Alkaline Phosphatase Total Creatine Kinase B-Natriuretic Peptide Total Protein Albumin Urine Color Urine Appearance Urine pH Ur Specific [place] Urine Protein Urine Glucose (UA) Urine Ketones Urine Blood Urine Nitrite Ur Leukocyte Esterase Urine RBC Urine WBC Ur Squamous Epith Cells Urine Bacteria Hyaline Casts Salicylates Acetaminophen Valproic Acid Influenza Type A (PCR) Influenza Type B (PCR) RSV RNA Qual (PCR) SARS-CoV-2 RNA (RT-PCR) 04/05/23 04/05/23 04/05/23 13:09 13:09 16:09 MCV MCH MCHC RDW Plt Count MPV Immature Gran % (Auto) Neut % (Auto) Lymph % (Auto) [place] % (Auto) Eos % (Auto) Baso % (Auto) Lymph # (Auto) [place] # (Auto) Eos # (Auto) Baso # (Auto) Abs Immat Gran (auto) Absolute Neuts (auto) Absolute Nucleated RBC Nucleated RBC % (auto) PT INR aPTT Heparin Protocol VBG pH VBG pCO2 VBG pO2 VBG HCO3 VBG O2 Saturation VBG Base Excess Anion Gap Estim Creat Clear Calc Estimated GFR Random Glucose Lactic Acid Lactic Acid F/U @ 2Hr Lactic Acid F/U @ 4Hr 7.7 H* Calcium Magnesium Total Bilirubin AST ALT Alkaline Phosphatase Total Creatine Kinase B-Natriuretic Peptide Total Protein Albumin Urine Color Dark Yellow Urine Appearance Clear Urine pH 5.5 Ur Specific [place] >= 1.030 H Urine Protein 30 (1+) H Urine Glucose (UA) Negative Urine Ketones 15 Urine Blood Negative Urine Nitrite Negative Ur Leukocyte Esterase Negative Urine RBC 3-5 H Urine WBC 0-5 Ur Squamous Epith Cells 0-2 Urine Bacteria None Seen Hyaline Casts 11-20 Salicylates Acetaminophen Valproic Acid Influenza Type A (PCR) NEGATIVE Influenza Type B (PCR) NEGATIVE RSV RNA Qual (PCR) NEGATIVE SARS-CoV-2 RNA (RT-PCR) NEGATIVE 04/05/23 04/05/23 04/05/23 16:24 16:39 16:39 MCV MCH MCHC RDW Plt Count MPV Immature Gran % (Auto) Neut % (Auto) Lymph % (Auto) [place] % (Auto) Eos % (Auto) Baso % (Auto) Lymph # (Auto) [place] # (Auto) Eos # (Auto) Baso # (Auto) Abs Immat Gran (auto) Absolute Neuts (auto) Absolute Nucleated RBC Nucleated RBC % (auto) PT INR aPTT Heparin Protocol 52.0 L D VBG pH VBG pCO2 VBG pO2 VBG HCO3 VBG O2 Saturation VBG Base Excess Anion Gap Estim Creat Clear Calc Estimated GFR Random Glucose Lactic Acid Lactic Acid F/U @ 2Hr Lactic Acid F/U @ 4Hr Calcium Magnesium Total Bilirubin AST ALT Alkaline Phosphatase Total Creatine Kinase B-Natriuretic Peptide Total Protein Albumin Urine Color Urine Appearance Urine pH Ur Specific [place] Urine Protein Urine Glucose (UA) Urine Ketones Urine Blood Urine Nitrite Ur Leukocyte Esterase Urine RBC Urine WBC Ur Squamous Epith Cells Urine Bacteria Hyaline Casts Salicylates < 5.0 L Acetaminophen < 17 Valproic Acid 30.4 L Influenza Type A (PCR) Influenza Type B (PCR) RSV RNA Qual (PCR) SARS-CoV-2 RNA (RT-PCR) 04/05/23 04/05/23 04/05/23 Unknown Unknown Unknown MCV 93.8 MCH 30.9 MCHC 32.9 RDW 13.3 Plt Count 298 MPV 11.1 Immature Gran % (Auto) Neut % (Auto) Lymph % (Auto) [place] % (Auto) Eos % (Auto) Baso % (Auto) Lymph # (Auto) [place] # (Auto) Eos # (Auto) Baso # (Auto) Abs Immat Gran (auto) Absolute Neuts (auto) Absolute Nucleated RBC 0.000 Nucleated RBC % (auto) 0.0 PT 18.8 H INR 1.5 H aPTT Heparin Protocol 31.0 L VBG pH VBG pCO2 VBG pO2 VBG HCO3 VBG O2 Saturation VBG Base Excess Anion Gap Estim Creat Clear Calc Estimated GFR Random Glucose Lactic Acid Lactic Acid F/U @ 2Hr 6.2 H* Lactic Acid F/U @ 4Hr Calcium Magnesium Total Bilirubin AST ALT Alkaline Phosphatase Total Creatine Kinase B-Natriuretic Peptide Total Protein Albumin Urine Color Urine Appearance Urine pH Ur Specific [place] Urine Protein Urine Glucose (UA) Urine Ketones Urine Blood Urine Nitrite Ur Leukocyte Esterase Urine RBC Urine WBC Ur Squamous Epith Cells Urine Bacteria Hyaline Casts Salicylates Acetaminophen Valproic Acid Influenza Type A (PCR) Influenza Type B (PCR) RSV RNA Qual (PCR) SARS-CoV-2 RNA (RT-PCR) Imaging Radiologist's Impressions: Impressions Chest X-Ray 04/05/23 10:25 IMPRESSION: 1. Emphysematous COPD. 2. Chronic interstitial lung disease, with overall improvement in aeration, especially at the bases since 11/09/2020. 3. New thickened interlobular septae in the periphery of the right mid and lower lung zone. This nonspecific finding can be due to infection, fluid, and lymphangitic carcinomatosis, amongst other etiologies. 4. Cardiomegaly. Abdomen/Pelvis CT 04/05/23 15:10 IMPRESSION: No evidence of pulmonary embolus. Airspace disease in the right lower lobe with bronchial wall thickening. Small right pleural effusion. This may represent bronchopneumonia. Dilated pulmonary arteries may be seen in the setting of pulmonary hypertension. Diffusely heterogeneous hepatic parenchyma with infiltrative appearance. MRI abdomen is recommended for further characterization. Left adnexal hypodensity 2.3 x 3.5 x 3.6 cm. This may be further characterized with pelvic ultrasound on a nonemergent basis. Fecal impaction in the rectum. Chest CT 04/05/23 15:10 IMPRESSION: No evidence of pulmonary embolus. Airspace disease in the right lower lobe with bronchial wall thickening. Small right pleural effusion. This may represent bronchopneumonia. Dilated pulmonary arteries may be seen in the setting of pulmonary hypertension. Diffusely heterogeneous hepatic parenchyma with infiltrative appearance. MRI abdomen is recommended for further characterization. Left adnexal hypodensity 2.3 x 3.5 x 3.6 cm. This may be further characterized with pelvic ultrasound on a nonemergent basis. Fecal impaction in the rectum. Assessment and Plan (1) Takotsubo cardiomyopathy: Status: Acute (2) Acute respiratory failure: Status: Acute (3) COPD (chronic obstructive pulmonary disease): Status: Acute (4) Enlarged RV (right ventricle): Status: Acute Plan Assessment: 63-year-old lady with underlying right ventricular dysfunction supplemental oxygen dependent COPD admitted with borderline cardiogenic shock and Takotsubo's physiology Plan: Neuro: No acute issues. Cardiac: acute systolic heart failure on the background of known right ventricular dysfunction, likely secondary to Takotsubo's physiology. Cardiology service care appreciated. Pulmonary: Acute on chronic respiratory failure with hypoxia. CT angio chest with no evidence of pulmonary emboli. Minimum right basilar lung infiltrate is not consistent with clinically significant pneumonia. underlying severe COPD. Renal: Acute renal failure secondary to forward flow on the background of newly noted reduced ejection fraction. Non oliguric. Poor response to Lasix drip. Continue to monitor renal indices and urine output. Endo: No acute issues. GI: Transaminitis secondary to poor perfusion, improving. ID: No evidence of sepsis. Borderline hypotension and poor end organ perfusion are secondary to cardiac dysfunction with underlying Takotsubo's physi ology. Heme/Onc: No acute issues. Psych: No acute issues. Miscellaneous: No acute issues. Prophylaxis: heparin drip Diet: regular Critical care time spent: 60 minutes Time Spent With Patient Time: Total time managing care of this patient today ____ minutes.
[2023-04-05] MEDS: Furosemide 200 MG in 0.9 % Sodium Chloride 80 ML IVCONT (18:46)
[2023-04-05 19:31] LABS: PTT Heparin Drip 64.7 SEC (53-77.9)
[2023-04-05 22:01] LABS: VBG Base Excess 1.4 mmol/L; VBG HCO3 25 mmol/L (22-26); VBG pCO2 38 mmHg; VBG pH 7.42 (7.32-7.43); VBG pO2 44 mmHg
[2023-04-05 22:07] LABS: Venous Blood Gas Refer to POC result
[2023-04-05 22:17] LABS: Alanine Aminotransferase 963 U/L (0-31); Albumin Level 4.1 g/dL (3.5-5.0); Alkaline Phosphatase 42 U/L (39-117); Anion Gap 17 (12-20); Aspartate Amino Transferase 896 U/L (5-31); Bilirubin Direct 0.3 mg/dL (0.0-0.5); Bilirubin Total 0.5 mg/dL (0.0-1.0); Blood Urea Nitrogen 29 mg/dL (9-16); Calcium 10.9 mg/dL (8.4-10.2); Carbon Dioxide 23 mmol/L (22-29); Chloride 100 mmol/L (96-108); Creatinine Clr Calc Pharmacy 60.7; Estimated Glomerular Filt Rate > 60; Glucose Random 137 mg/dL (60-115); Potassium 4.4 mmol/L (3.3-5.1); Sodium 136 mmol/L (135-145); Total Protein 6.9 g/dL (6.5-8.0)
[2023-04-05 23:57] LABS: Reflex Lactate? Lactic Acid Added
[2023-04-06] VITALS (37 sets, daily range): BP systolic 54–114; BP diastolic 35–81; PULSE 90–132; RESP 15–28; TEMP 37.1–38.4; O2SAT 87–94; BMI 24.4
[2023-04-06 00:31] LABS: ~Lactic Acid-LAB USE ONLY 2.4 mmol/L (0.5-2.0)
[2023-04-06 01:19] LABS: PTT Heparin Drip 70.8 SEC (53-77.9)
[2023-04-06 02:13] LABS: Reflex Lactate? 2 Y
[2023-04-06 02:51] LABS: Cancel Lactic Acid Canceled
[2023-04-06 05:15] LABS: VBG Base Excess 2.2 mmol/L; VBG HCO3 24 mmol/L (22-26); VBG pCO2 32 mmHg; VBG pH 7.49 (7.32-7.43); VBG pO2 86 mmHg
[2023-04-06 05:16] LABS: Venous Blood Gas Refer to POC result
[2023-04-06 05:18] LABS: MANUAL DIFF FLAG NO
[2023-04-06 05:19] LABS: Hematocrit 37.8 % (37.0-47.0); Hemoglobin 12.8 g/dl (12.0-16.0); Mean Corpuscular HGB Conc 33.9 g/dl (31.0-35.0); Mean Corpuscular Hemoglobin 31.1 pg (27.0-33.0); Mean Corpuscular Volume 91.7 fL (80.0-98.0); Mean Platelet Volume 10.8 fL (9.4-12.3); NRBC Pct Auto 0.2 /100WBC (0.0-0.2); Platelet Count 258 X10*3/uL (160-400); Red Blood Count 4.12 X10*6/uL (4.20-5.50); Red Cell Distribution Width 13.2 % (11.0-16.0); White Blood Count 21.5 X10*3/uL (4.8-10.8)
[2023-04-06 05:20] LABS: Basophils Absolute Auto 0.1 X10*3/uL (0.0-0.2); Basophils Percent Auto 0.2 % (0-2); Hemoglobin 12.7 g/dl (12.0-16.0); Imm Gran Abs Auto 0.16 X10*3/uL (0.00-0.03); Imm Gran Pct Auto 0.8 % (0.0-0.4); Lymphocytes Absolute Auto 2.2 X10*3/uL (1.2-4.9); Lymphocytes Percent Auto 10.3 % (20-40); Mean Corpuscular HGB Conc 33.4 g/dl (31.0-35.0); Mean Corpuscular Hemoglobin 31.4 pg (27.0-33.0); Mean Corpuscular Volume 93.8 fL (80.0-98.0); Mean Platelet Volume 11.3 fL (9.4-12.3); Monocytes Percent Auto 4.8 % (2-11); NRBC Pct Auto 0.3 /100WBC (0.0-0.2); Neutrophils Absolute Auto 17.6 x10*3/uL (2.0-8.3); Neutrophils Percent Auto 83.9 % (45-73); Platelet Count 267 X10*3/uL (160-400); Red Blood Count 4.05 X10*6/uL (4.20-5.50); Red Cell Distribution Width 13.2 % (11.0-16.0); White Blood Count 20.9 X10*3/uL (4.8-10.8)
[2023-04-06 05:26] LABS: INTERNATIONAL NORM RATIO 1.5 (0.9-1.1); Prothrombin Time 18.1 SEC (11.1-13.3)
[2023-04-06 05:28] LABS: PTT Heparin Drip 67.7 SEC (53-77.9)
[2023-04-06 05:34] LABS: Alanine Aminotransferase 872 U/L (0-31); Albumin Level 3.8 g/dL (3.5-5.0); Alkaline Phosphatase 39 U/L (39-117); Anion Gap 17 (12-20); Aspartate Amino Transferase 670 U/L (5-31); Bilirubin Total 0.5 mg/dL (0.0-1.0); Blood Urea Nitrogen 33 mg/dL (9-16); Calcium 10.3 mg/dL (8.4-10.2); Carbon Dioxide 23 mmol/L (22-29); Chloride 99 mmol/L (96-108); Creatinine Clr Calc Pharmacy 68.2; Estimated Glomerular Filt Rate > 60; Glucose Random 117 mg/dL (60-115); Phosphorus 4.3 mg/dL (2.7-4.5); Potassium 4.7 mmol/L (3.3-5.1); Sodium 134 mmol/L (135-145); Total Protein 6.6 g/dL (6.5-8.0)
--- NOTE | 2023-04-06 09:28 | PM.PNCARD ---
Subjective Subjective Date of Service: 04/06/23 Interval history: Seen and examined at bedside On high flow oxygen. Physical Exam Vital Signs: Last Vital Signs Temp 99.5 F 04/06/23 09:00 Pulse 105 H 04/06/23 09:00 Resp 16 04/06/23 09:00 BP 85/55 L 04/06/23 09:00 Pulse Ox 92 04/06/23 09:00 O2 Del Method High Flow Nasal Cannula 04/06/23 09:00 O2 Flow Rate 35 04/06/23 09:00 FiO2 40 04/06/23 09:00 Oxygen Flow Rate 10 04/05/23 09:21 BMI result Body Mass Index 24.4 GENERAL APPEARANCE: in no acute distress, Elias high-flow oxygen. NECK: no carotid bruit, no jugular venous distention. SKIN: no suspicious lesions, warm and dry. HEART: no murmurs, regular rate and rhythm. LUNGS: Mild expiratory wheezes. ABDOMEN: soft, nontender. EXTREMITIES: no edema. PERIPHERAL PULSES: equal. NEUROLOGIC: No gross deficits, AAO X 3 Objective Labs and Meds 04/06/23 05:09 04/06/23 05:09 Lab results: Laboratory Results - last 24 hr 04/05/23 04/05/23 04/05/23 09:43 09:43 09:43 WBC 10.8 RBC 4.39 Hgb 13.4 Hct 40.6 MCV 92.5 MCH 30.5 MCHC 33.0 RDW 13.2 Plt Count 300 MPV 10.6 Immature Gran % (Auto) 0.6 H Neut % (Auto) 75.3 H Lymph % (Auto) 16.8 L [place] % (Auto) 7.1 Eos % (Auto) 0.0 Baso % (Auto) 0.2 Lymph # (Auto) 1.8 [place] # (Auto) 0.8 Eos # (Auto) 0.0 Baso # (Auto) 0.0 Abs Immat Gran (auto) 0.07 H Absolute Neuts (auto) 8.2 Absolute Nucleated RBC 0.000 Nucleated RBC % (auto) 0.0 PT INR aPTT Heparin Protocol VBG pH VBG pCO2 VBG pO2 VBG HCO3 VBG O2 Saturation VBG Base Excess Sodium 139 Potassium 5.0 Chloride 102 Carbon Dioxide 22 Anion Gap 20 BUN 29 H Creatinine 1.26 Estim Creat Clear Calc 43.9 Estimated GFR 43 Random Glucose 128 H Lactic Acid Lactic Acid F/U @ 2Hr Lactic Acid F/U @ 4Hr Calcium 11.0 H D Phosphorus Magnesium 2.2 Total Bilirubin 0.7 Direct Bilirubin AST 792 H ALT 746 H Alkaline Phosphatase 41 Total Creatine Kinase 202 H Troponin I High Sens B-Natriuretic Peptide 3018 H Total Protein 7.4 Albumin 4.2 Urine Color Urine Appearance Urine pH Ur Specific [place] Urine Protein Urine Glucose (UA) Urine Ketones Urine Blood Urine Nitrite Ur Leukocyte Esterase Urine RBC Urine WBC Ur Squamous Epith Cells Urine Bacteria Hyaline Casts Salicylates Acetaminophen Valproic Acid Influenza Type A (PCR) Influenza Type B (PCR) RSV RNA Qual (PCR) SARS-CoV-2 RNA (RT-PCR) 04/05/23 04/05/23 04/05/23 09:43 09:43 09:43 WBC RBC Hgb Hct MCV MCH MCHC RDW Plt Count MPV Immature Gran % (Auto) Neut % (Auto) Lymph % (Auto) [place] % (Auto) Eos % (Auto) Baso % (Auto) Lymph # (Auto) [place] # (Auto) Eos # (Auto) Baso # (Auto) Abs Immat Gran (auto) Absolute Neuts (auto) Absolute Nucleated RBC Nucleated RBC % (auto) PT 19.1 H INR 1.6 H aPTT Heparin Protocol VBG pH VBG pCO2 VBG pO2 VBG HCO3 VBG O2 Saturation VBG Base Excess Sodium Potassium Chloride Carbon Dioxide Anion Gap BUN Creatinine Estim Creat Clear Calc Estimated GFR Random Glucose Lactic Acid 3.7 H* Lactic Acid F/U @ 2Hr Lactic Acid F/U @ 4Hr Calcium Phosphorus Magnesium Total Bilirubin Direct Bilirubin AST ALT Alkaline Phosphatase Total Creatine Kinase Troponin I High Sens 2571.5 H* B-Natriuretic Peptide Total Protein Albumin Urine Color Urine Appearance Urine pH Ur Specific [place] Urine Protein Urine Glucose (UA) Urine Ketones Urine Blood Urine Nitrite Ur Leukocyte Esterase Urine RBC Urine WBC Ur Squamous Epith Cells Urine Bacteria Hyaline Casts Salicylates Acetaminophen Valproic Acid Influenza Type A (PCR) Influenza Type B (PCR) RSV RNA Qual (PCR) SARS-CoV-2 RNA (RT-PCR) 04/05/23 04/05/23 04/05/23 09:45 12:08 13:09 WBC RBC Hgb Hct MCV MCH MCHC RDW Plt Count MPV Immature Gran % (Auto) Neut % (Auto) Lymph % (Auto) [place] % (Auto) Eos % (Auto) Baso % (Auto) Lymph # (Auto) [place] # (Auto) Eos # (Auto) Baso # (Auto) Abs Immat Gran (auto) Absolute Neuts (auto) Absolute Nucleated RBC Nucleated RBC % (auto) PT INR aPTT Heparin Protocol VBG pH 7.37 VBG pCO2 37 VBG pO2 73 VBG HCO3 22 VBG O2 Saturation 89.0 VBG Base Excess -2.5 Sodium Potassium Chloride Carbon Dioxide Anion Gap BUN Creatinine Estim Creat Clear Calc Estimated GFR Random Glucose Lactic Acid Lactic Acid F/U @ 2Hr 6.2 H* Lactic Acid F/U @ 4Hr Calcium Phosphorus Magnesium Total Bilirubin Direct Bilirubin AST ALT Alkaline Phosphatase Total Creatine Kinase Troponin I High Sens B-Natriuretic Peptide Total Protein Albumin Urine Color Urine Appearance Urine pH Ur Specific [place] Urine Protein Urine Glucose (UA) Urine Ketones Urine Blood Urine Nitrite Ur Leukocyte Esterase Urine RBC Urine WBC Ur Squamous Epith Cells Urine Bacteria Hyaline Casts Salicylates Acetaminophen Valproic Acid Influenza Type A (PCR) NEGATIVE Influenza Type B (PCR) NEGATIVE RSV RNA Qual (PCR) NEGATIVE SARS-CoV-2 RNA (RT-PCR) NEGATIVE 04/05/23 04/05/23 04/05/23 13:09 16:09 16:24 WBC RBC Hgb Hct MCV MCH MCHC RDW Plt Count MPV Immature Gran % (Auto) Neut % (Auto) Lymph % (Auto) [place] % (Auto) Eos % (Auto) Baso % (Auto) Lymph # (Auto) [place] # (Auto) Eos # (Auto) Baso # (Auto) Abs Immat Gran (auto) Absolute Neuts (auto) Absolute Nucleated RBC Nucleated RBC % (auto) PT INR aPTT Heparin Protocol 52.0 L D VBG pH VBG pCO2 VBG pO2 VBG HCO3 VBG O2 Saturation VBG Base Excess Sodium Potassium Chloride Carbon Dioxide Anion Gap BUN Creatinine Estim Creat Clear Calc Estimated GFR Random Glucose Lactic Acid Lactic Acid F/U @ 2Hr Lactic Acid F/U @ 4Hr 7.7 H* Calcium Phosphorus Magnesium Total Bilirubin Direct Bilirubin AST ALT Alkaline Phosphatase Total Creatine Kinase Troponin I High Sens B-Natriuretic Peptide Total Protein Albumin Urine Color Dark Yellow Urine Appearance Clear Urine pH 5.5 Ur Specific [place] >= 1.030 H Urine Protein 30 (1+) H Urine Glucose (UA) Negative Urine Ketones 15 Urine Blood Negative Urine Nitrite Negative Ur Leukocyte Esterase Negative Urine RBC 3-5 H Urine WBC 0-5 Ur Squamous Epith Cells 0-2 Urine Bacteria None Seen Hyaline Casts 11-20 Salicylates Acetaminophen Valproic Acid Influenza Type A (PCR) Influenza Type B (PCR) RSV RNA Qual (PCR) SARS-CoV-2 RNA (RT-PCR) 04/05/23 04/05/23 04/05/23 16:24 16:39 16:39 WBC RBC Hgb Hct MCV MCH MCHC RDW Plt Count MPV Immature Gran % (Auto) Neut % (Auto) Lymph % (Auto) [place] % (Auto) Eos % (Auto) Baso % (Auto) Lymph # (Auto) [place] # (Auto) Eos # (Auto) Baso # (Auto) Abs Immat Gran (auto) Absolute Neuts (auto) Absolute Nucleated RBC Nucleated RBC % (auto) PT INR aPTT Heparin Protocol VBG pH VBG pCO2 VBG pO2 VBG HCO3 VBG O2 Saturation VBG Base Excess Sodium Potassium Chloride Carbon Dioxide Anion Gap BUN Creatinine Estim Creat Clear Calc Estimated GFR Random Glucose Lactic Acid Lactic Acid F/U @ 2Hr Lactic Acid F/U @ 4Hr Calcium Phosphorus Magnesium Total Bilirubin Direct Bilirubin AST ALT Alkaline Phosphatase Total Creatine Kinase Troponin I High Sens 2221.8 H* B-Natriuretic Peptide Total Protein Albumin Urine Color Urine Appearance Urine pH Ur Specific [place] Urine Protein Urine Glucose (UA) Urine Ketones Urine Blood Urine Nitrite Ur Leukocyte Esterase Urine RBC Urine WBC Ur Squamous Epith Cells Urine Bacteria Hyaline Casts Salicylates < 5.0 L Acetaminophen < 17 Valproic Acid 30.4 L Influenza Type A (PCR) Influenza Type B (PCR) RSV RNA Qual (PCR) SARS-CoV-2 RNA (RT-PCR) 04/05/23 04/05/23 04/05/23 19:14 21:50 21:50 WBC RBC Hgb Hct MCV MCH MCHC RDW Plt Count MPV Immature Gran % (Auto) Neut % (Auto) Lymph % (Auto) [place] % (Auto) Eos % (Auto) Baso % (Auto) Lymph # (Auto) [place] # (Auto) Eos # (Auto) Baso # (Auto) Abs Immat Gran (auto) Absolute Neuts (auto) Absolute Nucleated RBC Nucleated RBC % (auto) PT INR aPTT Heparin Protocol 64.7 D VBG pH VBG pCO2 VBG pO2 VBG HCO3 VBG O2 Saturation VBG Base Excess Sodium 136 Potassium 4.4 Chloride 100 Carbon Dioxide 23 Anion Gap 17 BUN 29 H Creatinine 0.91 Estim Creat Clear Calc 60.7 Estimated GFR > 60 Random Glucose 137 H Lactic Acid 4.0 H* Lactic Acid F/U @ 2Hr Lactic Acid F/U @ 4Hr Calcium 10.9 H Phosphorus 4.0 Magnesium 2.0 Total Bilirubin 0.5 Direct Bilirubin 0.3 AST 896 H ALT 963 H Alkaline Phosphatase 42 Total Creatine Kinase Troponin I High Sens B-Natriuretic Peptide Total Protein 6.9 Albumin 4.1 Urine Color Urine Appearance Urine pH Ur Specific [place] Urine Protein Urine Glucose (UA) Urine Ketones Urine Blood Urine Nitrite Ur Leukocyte Esterase Urine RBC Urine WBC Ur Squamous Epith Cells Urine Bacteria Hyaline Casts Salicylates Acetaminophen Valproic Acid Influenza Type A (PCR) Influenza Type B (PCR) RSV RNA Qual (PCR) SARS-CoV-2 RNA (RT-PCR) 04/05/23 04/05/23 04/05/23 21:50 21:51 Unknown WBC 13.8 H RBC 4.53 Hgb 14.0 Hct 42.5 MCV 93.8 MCH 30.9 MCHC 32.9 RDW 13.3 Plt Count 298 MPV 11.1 Immature Gran % (Auto) Neut % (Auto) Lymph % (Auto) [place] % (Auto) Eos % (Auto) Baso % (Auto) Lymph # (Auto) [place] # (Auto) Eos # (Auto) Baso # (Auto) Abs Immat Gran (auto) Absolute Neuts (auto) Absolute Nucleated RBC 0.000 Nucleated RBC % (auto) 0.0 PT INR aPTT Heparin Protocol VBG pH 7.42 VBG pCO2 38 VBG pO2 44 VBG HCO3 25 VBG O2 Saturation 66.0 VBG Base Excess 1.4 Sodium Potassium Chloride Carbon Dioxide Anion Gap BUN Creatinine Estim Creat Clear Calc Estimated GFR Random Glucose Lactic Acid Lactic Acid F/U @ 2Hr Lactic Acid F/U @ 4Hr Calcium Phosphorus Magnesium Total Bilirubin Direct Bilirubin AST ALT Alkaline Phosphatase Total Creatine Kinase Troponin I High Sens 2933.0 H* B-Natriuretic Peptide Total Protein Albumin Urine Color Urine Appearance Urine pH Ur Specific [place] Urine Protein Urine Glucose (UA) Urine Ketones Urine Blood Urine Nitrite Ur Leukocyte Esterase Urine RBC Urine WBC Ur Squamous Epith Cells Urine Bacteria Hyaline Casts Salicylates Acetaminophen Valproic Acid Influenza Type A (PCR) Influenza Type B (PCR) RSV RNA Qual (PCR) SARS-CoV-2 RNA (RT-PCR) 04/05/23 04/06/23 04/06/23 Unknown 00:07 01:04 WBC RBC Hgb Hct MCV MCH MCHC RDW Plt Count MPV Immature Gran % (Auto) Neut % (Auto) Lymph % (Auto) [place] % (Auto) Eos % (Auto) Baso % (Auto) Lymph # (Auto) [place] # (Auto) Eos # (Auto) Baso # (Auto) Abs Immat Gran (auto) Absolute Neuts (auto) Absolute Nucleated RBC Nucleated RBC % (auto) PT 18.8 H INR 1.5 H aPTT Heparin Protocol 31.0 L 70.8 VBG pH VBG pCO2 VBG pO2 VBG HCO3 VBG O2 Saturation VBG Base Excess Sodium Potassium Chloride Carbon Dioxide Anion Gap BUN Creatinine Estim Creat Clear Calc Estimated GFR Random Glucose Lactic Acid Lactic Acid F/U @ 2Hr 2.4 H* Lactic Acid F/U @ 4Hr Calcium Phosphorus Magnesium Total Bilirubin Direct Bilirubin AST ALT Alkaline Phosphatase Total Creatine Kinase Troponin I High Sens B-Natriuretic Peptide Total Protein Albumin Urine Color Urine Appearance Urine pH Ur Specific [place] Urine Protein Urine Glucose (UA) Urine Ketones Urine Blood Urine Nitrite Ur Leukocyte Esterase Urine RBC Urine WBC Ur Squamous Epith Cells Urine Bacteria Hyaline Casts Salicylates Acetaminophen Valproic Acid Influenza Type A (PCR) Influenza Type B (PCR) RSV RNA Qual (PCR) SARS-CoV-2 RNA (RT-PCR) 04/06/23 04/06/23 04/06/23 05:05 05:09 05:09 WBC 20.9 H RBC 4.05 L Hgb 12.7 Hct 38.0 MCV 93.8 MCH 31.4 MCHC 33.4 RDW 13.2 Plt Count 267 MPV 11.3 Immature Gran % (Auto) 0.8 H Neut % (Auto) 83.9 H Lymph % (Auto) 10.3 L [place] % (Auto) 4.8 Eos % (Auto) 0.0 Baso % (Auto) 0.2 Lymph # (Auto) 2.2 [place] # (Auto) 1.0 Eos # (Auto) 0.0 Baso # (Auto) 0.1 Abs Immat Gran (auto) 0.16 H Absolute Neuts (auto) 17.6 H Absolute Nucleated RBC 0.070 H Nucleated RBC % (auto) 0.3 H PT INR aPTT Heparin Protocol VBG pH 7.49 H VBG pCO2 32 VBG pO2 86 VBG HCO3 24 VBG O2 Saturation 97.0 VBG Base Excess 2.2 Sodium 134 L Potassium 4.7 Chloride 99 Carbon Dioxide 23 Anion Gap 17 BUN 33 H Creatinine 0.81 Estim Creat Clear Calc 68.2 Estimated GFR > 60 Random Glucose 117 H Lactic Acid Lactic Acid F/U @ 2Hr Lactic Acid F/U @ 4Hr Calcium 10.3 H Phosphorus 4.3 Magnesium 2.0 Total Bilirubin 0.5 Direct Bilirubin AST 670 H ALT 872 H Alkaline Phosphatase 39 Total Creatine Kinase Troponin I High Sens B-Natriuretic Peptide Total Protein 6.6 Albumin 3.8 Urine Color Urine Appearance Urine pH Ur Specific [place] Urine Protein Urine Glucose (UA) Urine Ketones Urine Blood Urine Nitrite Ur Leukocyte Esterase Urine RBC Urine WBC Ur Squamous Epith Cells Urine Bacteria Hyaline Casts Salicylates Acetaminophen Valproic Acid Influenza Type A (PCR) Influenza Type B (PCR) RSV RNA Qual (PCR) SARS-CoV-2 RNA (RT-PCR) 04/06/23 04/06/23 04/06/23 05:09 05:09 05:09 WBC 21.5 H RBC 4.12 L Hgb 12.8 Hct 37.8 MCV 91.7 MCH 31.1 MCHC 33.9 RDW 13.2 Plt Count 258 MPV 10.8 Immature Gran % (Auto) Neut % (Auto) Lymph % (Auto) [place] % (Auto) Eos % (Auto) Baso % (Auto) Lymph # (Auto) [place] # (Auto) Eos # (Auto) Baso # (Auto) Abs Immat Gran (auto) Absolute Neuts (auto) Absolute Nucleated RBC 0.050 H Nucleated RBC % (auto) 0.2 PT 18.1 H INR 1.5 H aPTT Heparin Protocol 67.7 VBG pH VBG pCO2 VBG pO2 VBG HCO3 VBG O2 Saturation VBG Base Excess Sodium Potassium Chloride Carbon Dioxide Anion Gap BUN Creatinine Estim Creat Clear Calc Estimated GFR Random Glucose Lactic Acid Lactic Acid F/U @ 2Hr Lactic Acid F/U @ 4Hr Calcium Phosphorus Magnesium Total Bilirubin Direct Bilirubin AST ALT Alkaline Phosphatase Total Creatine Kinase Troponin I High Sens 2285.0 H* B-Natriuretic Peptide Total Protein Albumin Urine Color Urine Appearance Urine pH Ur Specific [place] Urine Protein Urine Glucose (UA) Urine Ketones Urine Blood Urine Nitrite Ur Leukocyte Esterase Urine RBC Urine WBC Ur Squamous Epith Cells Urine Bacteria Hyaline Casts Salicylates Acetaminophen Valproic Acid Influenza Type A (PCR) Influenza Type B (PCR) RSV RNA Qual (PCR) SARS-CoV-2 RNA (RT-PCR) Imaging Radiologist's impression: Impressions Chest X-Ray 04/05/23 10:25 IMPRESSION: 1. Emphysematous COPD. 2. Chronic interstitial lung disease, with overall improvement in aeration, especially at the bases since 11/09/2020. 3. New thickened interlobular septae in the periphery of the right mid and lower lung zone. This nonspecific finding can be due to infection, fluid, and lymphangitic carcinomatosis, amongst other etiologies. 4. Cardiomegaly. Abdomen/Pelvis CT 04/05/23 15:10 IMPRESSION: No evidence of pulmonary embolus. Airspace disease in the right lower lobe with bronchial wall thickening. Small right pleural effusion. This may represent bronchopneumonia. Dilated pulmonary arteries may be seen in the setting of pulmonary hypertension. Diffusely heterogeneous hepatic parenchyma with infiltrative appearance. MRI abdomen is recommended for further characterization. Left adnexal hypodensity 2.3 x 3.5 x 3.6 cm. This may be further characterized with pelvic ultrasound on a nonemergent basis. Fecal impaction in the rectum. Chest CT 04/05/23 15:10 IMPRESSION: No evidence of pulmonary embolus. Airspace disease in the right lower lobe with bronchial wall thickening. Small right pleural effusion. This may represent bronchopneumonia. Dilated pulmonary arteries may be seen in the setting of pulmonary hypertension. Diffusely heterogeneous hepatic parenchyma with infiltrative appearance. MRI abdomen is recommended for further characterization. Left adnexal hypodensity 2.3 x 3.5 x 3.6 cm. This may be further characterized with pelvic ultrasound on a nonemergent basis. Fecal impaction in the rectum. Progress Note: A&P Assessment and plan (1) Takotsubo cardiomyopathy: Status: Acute (2) Acute respiratory failure: Status: Acute Plan 63-year-old female who had a mechanical fall and presented to us and was discharged home with then presented back next day with shortness of breath. She had elevated BNP and troponin levels with diffuse T-wave inversions on the EKG. Echocardiography has shown evidence of takotsubo cardiomyopathy. She is denying any chest discomfort. She was on apixaban which was stopped and she was started on heparin. CT scan is raising concern for bronchopneumonia. Clinically she does not appear to be significantly volume overloaded or in florid heart failure. I think we continue supportive care for now. Would recommend that she be started on antibiotics given her poor reserve. Avoid beta-blockers, calcium channel blockers currently. She had RV dysfunction previously due to cor pulmonale. It is possible that hepatic congestion is the reason her liver enzymes were abnormal. In any case was stress-induced aspects usually recover and we can repeat and her echocardiogram on Sunday to reassess ejection fraction. Thank you for allowing me to participate in the care of your patient. Please feel free to contact me if you have any questions. Time Spent With Patient Time: Total time managing care of this patient today ____ minutes. Procedures Date of Service Date of Service: 04/06/23
[2023-04-06] MEDS: Lactulose 20 GM/30 ML SOLUTION 30 GM PO ×2 (09:34→19:54)
[2023-04-06] MEDS: Norepinephrine Bitartrate/D5W 8 MG/250 ML PLAST..BAG 6.53 MG IV (09:38)
--- NOTE | 2023-04-06 10:03 | MHC.CM.PN ---
Met with pt to discuss d/c planning: Pt resides alone and is independent with all care needs. She has [employer] for home O2 but no services or DME. Family assists w/all transportation. Pt's sister has a copy of her HCP which was requested. PCP is Dr. Bearden. Referral made to NA w/pt consent should she need skilled RN visits following d/c. Family to transport.
--- NOTE | 2023-04-06 12:28 | PM.CCPN ---
Subjective Subjective Date of Service: 04/06/23 Interval History: 63-year-old lady with underlying history COPD 3 L supplemental oxygen dependent, paroxysmal AFib, right ventricular dysfunction admitted on 04/05/2023 with dyspnea for several days. On ER evaluation patient with significant hypoxemia requiring high-flow nasal cannula 50% to maintain normal oximetry. Elevated transaminases, lactate, troponin, and BNP. On bedside echocardiogram newly reduced ejection fraction at 10-15% with Takotsubo physiology. Patient started on heparin drip and admitted to the intensive care unit for close monitoring. Tried on diuretic drip with poor response and development of borderline blood pressures. Diuretic drip held. Critical Care Time (minutes): 45 Physical Exam Vital Signs: Vital Signs: Last Vital Signs Temp 99.7 F 04/06/23 12:00 Pulse 109 H 04/06/23 12:00 Resp 17 04/06/23 12:00 BP 108/69 04/06/23 12:00 Pulse Ox 90 L 04/06/23 12:00 O2 Del Method High Flow Nasal C annula 04/06/23 12:00 O2 Flow Rate 30 04/06/23 12:00 FiO2 40 04/06/23 12:00 Oxygen Flow Rate 10 04/05/23 09:21 BMI result Body Mass Index 24.4 Const: General: no acute distress, alert and awake Eyes: Sclerae: sclerae normal EOM: EOMs intact bilaterally Neck: Neck: Yes no lymphadenopathy, Yes trachea midline and Yes supple Resp: Effort & Inspection: normal respiratory effort and no respiratory distress Auscultation: clear to auscultation bilaterally Cardio: Rate: tachycardic Rhythm: regular rhythm Heart sounds: no gallops, no murmurs and no rubs GI: Palpation (GI): Soft to palpation and Other GI palpation findings present ( Nontender) Auscultation: normal bowel sounds Extrem: General: Yes no pedal edema, No clubbing and No cyanosis Objective Data Labs 04/06/23 05:09 04/06/23 05:09 Labs: Laboratory Results - last 24 hr 04/05/23 04/05/23 04/05/23 09:43 12:08 13:09 WBC RBC Hgb Hct MCV MCH MCHC RDW Plt Count MPV Immature Gran % (Auto) Neut % (Auto) Lymph % (Auto) [place] % (Auto) Eos % (Auto) Baso % (Auto) Lymph # (Auto) [place] # (Auto) Eos # (Auto) Baso # (Auto) Abs Immat Gran (auto) Absolute Neuts (auto) Absolute Nucleated RBC Nucleated RBC % (auto) PT INR aPTT Heparin Protocol VBG pH VBG pCO2 VBG pO2 VBG HCO3 VBG O2 Saturation VBG Base Excess Sodium Potassium Chloride Carbon Dioxide Anion Gap BUN Creatinine Estim Creat Clear Calc Estimated GFR Random Glucose Lactic Acid Lactic Acid F/U @ 2Hr 6.2 H* Lactic Acid F/U @ 4Hr Calcium Phosphorus Magnesium Total Bilirubin Direct Bilirubin AST ALT Alkaline Phosphatase Total Creatine Kinase 202 H Troponin I High Sens Total Protein Albumin Urine Color Urine Appearance Urine pH Ur Specific [place] Urine Protein Urine Glucose (UA) Urine Ketones Urine Blood Urine Nitrite Ur Leukocyte Esterase Urine RBC Urine WBC Ur Squamous Epith Cells Urine Bacteria Hyaline Casts Salicylates Acetaminophen Valproic Acid Influenza Type A (PCR) NEGATIVE Influenza Type B (PCR) NEGATIVE RSV RNA Qual (PCR) NEGATIVE SARS-CoV-2 RNA (RT-PCR) NEGATIVE 04/05/23 04/05/23 04/05/23 13:09 16:09 16:24 WBC RBC Hgb Hct MCV MCH MCHC RDW Plt Count MPV Immature Gran % (Auto) Neut % (Auto) Lymph % (Auto) [place] % (Auto) Eos % (Auto) Baso % (Auto) Lymph # (Auto) [place] # (Auto) Eos # (Auto) Baso # (Auto) Abs Immat Gran (auto) Absolute Neuts (auto) Absolute Nucleated RBC Nucleated RBC % (auto) PT INR aPTT Heparin Protocol 52.0 L D VBG pH VBG pCO2 VBG pO2 VBG HCO3 VBG O2 Saturation VBG Base Excess Sodium Potassium Chloride Carbon Dioxide Anion Gap BUN Creatinine Estim Creat Clear Calc Estimated GFR Random Glucose Lactic Acid Lactic Acid F/U @ 2Hr Lactic Acid F/U @ 4Hr 7.7 H* Calcium Phosphorus Magnesium Total Bilirubin Direct Bilirubin AST ALT Alkaline Phosphatase Total Creatine Kinase Troponin I High Sens Total Protein Albumin Urine Color Dark Yellow Urine Appearance Clear Urine pH 5.5 Ur Specific [place] >= 1.030 H Urine Protein 30 (1+) H Urine Glucose (UA) Negative Urine Ketones 15 Urine Blood Negative Urine Nitrite Negative Ur Leukocyte Esterase Negative Urine RBC 3-5 H Urine WBC 0-5 Ur Squamous Epith Cells 0-2 Urine Bacteria None Seen Hyaline Casts 11-20 Salicylates Acetaminophen Valproic Acid Influenza Type A (PCR) Influenza Type B (PCR) RSV RNA Qual (PCR) SARS-CoV-2 RNA (RT-PCR) 04/05/23 04/05/23 04/05/23 16:24 16:39 16:39 WBC RBC Hgb Hct MCV MCH MCHC RDW Plt Count MPV Immature Gran % (Auto) Neut % (Auto) Lymph % (Auto) [place] % (Auto) Eos % (Auto) Baso % (Auto) Lymph # (Auto) [place] # (Auto) Eos # (Auto) Baso # (Auto) Abs Immat Gran (auto) Absolute Neuts (auto) Absolute Nucleated RBC Nucleated RBC % (auto) PT INR aPTT Heparin Protocol VBG pH VBG pCO2 VBG pO2 VBG HCO3 VBG O2 Saturation VBG Base Excess Sodium Potassium Chloride Carbon Dioxide Anion Gap BUN Creatinine Estim Creat Clear Calc Estimated GFR Random Glucose Lactic Acid Lactic Acid F/U @ 2Hr Lactic Acid F/U @ 4Hr Calcium Phosphorus Magnesium Total Bilirubin Direct Bilirubin AST ALT Alkaline Phosphatase Total Creatine Kinase Troponin I High Sens 2221.8 H* Total Protein Albumin Urine Color Urine Appearance Urine pH Ur Specific [place] Urine Protein Urine Glucose (UA) Urine Ketones Urine Blood Urine Nitrite Ur Leukocyte Esterase Urine RBC Urine WBC Ur Squamous Epith Cells Urine Bacteria Hyaline Casts Salicylates < 5.0 L Acetaminophen < 17 Valproic Acid 30.4 L Influenza Type A (PCR) Influenza Type B (PCR) RSV RNA Qual (PCR) SARS-CoV-2 RNA (RT-PCR) 04/05/23 04/05/23 04/05/23 19:14 21:50 21:50 WBC RBC Hgb Hct MCV MCH MCHC RDW Plt Count MPV Immature Gran % (Auto) Neut % (Auto) Lymph % (Auto) [place] % (Auto) Eos % (Auto) Baso % (Auto) Lymph # (Auto) [place] # (Auto) Eos # (Auto) Baso # (Auto) Abs Immat Gran (auto) Absolute Neuts (auto) Absolute Nucleated RBC Nucleated RBC % (auto) PT INR aPTT Heparin Protocol 64.7 D VBG pH VBG pCO2 VBG pO2 VBG HCO3 VBG O2 Saturation VBG Base Excess Sodium 136 Potassium 4.4 Chloride 100 Carbon Dioxide 23 Anion Gap 17 BUN 29 H Creatinine 0.91 Estim Creat Clear Calc 60.7 Estimated GFR > 60 Random Glucose 137 H Lactic Acid 4.0 H* Lactic Acid F/U @ 2Hr Lactic Acid F/U @ 4Hr Calcium 10.9 H Phosphorus 4.0 Magnesium 2.0 Total Bilirubin 0.5 Direct Bilirubin 0.3 AST 896 H ALT 963 H Alkaline Phosphatase 42 Total Creatine Kinase Troponin I High Sens Total Protein 6.9 Albumin 4.1 Urine Color Urine Appearance Urine pH Ur Specific [place] Urine Protein Urine Glucose (UA) Urine Ketones Urine Blood Urine Nitrite Ur Leukocyte Esterase Urine RBC Urine WBC Ur Squamous Epith Cells Urine Bacteria Hyaline Casts Salicylates Acetaminophen Valproic Acid Influenza Type A (PCR) Influenza Type B (PCR) RSV RNA Qual (PCR) SARS-CoV-2 RNA (RT-PCR) 04/05/23 04/05/23 04/05/23 21:50 21:51 Unknown WBC 13.8 H RBC 4.53 Hgb 14.0 Hct 42.5 MCV 93.8 MCH 30.9 MCHC 32.9 RDW 13.3 Plt Count 298 MPV 11.1 Immature Gran % (Auto) Neut % (Auto) Lymph % (Auto) [place] % (Auto) Eos % (Auto) Baso % (Auto) Lymph # (Auto) [place] # (Auto) Eos # (Auto) Baso # (Auto) Abs Immat Gran (auto) Absolute Neuts (auto) Absolute Nucleated RBC 0.000 Nucleated RBC % (auto) 0.0 PT INR aPTT Heparin Protocol VBG pH 7.42 VBG pCO2 38 VBG pO2 44 VBG HCO3 25 VBG O2 Saturation 66.0 VBG Base Excess 1.4 Sodium Potassium Chloride Carbon Dioxide Anion Gap BUN Creatinine Estim Creat Clear Calc Estimated GFR Random Glucose Lactic Acid Lactic Acid F/U @ 2Hr Lactic Acid F/U @ 4Hr Calcium Phosphorus Magnesium Total Bilirubin Direct Bilirubin AST ALT Alkaline Phosphatase Total Creatine Kinase Troponin I High Sens 2933.0 H* Total Protein Albumin Urine Color Urine Appearance Urine pH Ur Specific [place] Urine Protein Urine Glucose (UA) Urine Ketones Urine Blood Urine Nitrite Ur Leukocyte Esterase Urine RBC Urine WBC Ur Squamous Epith Cells Urine Bacteria Hyaline Casts Salicylates Acetaminophen Valproic Acid Influenza Type A (PCR) Influenza Type B (PCR) RSV RNA Qual (PCR) SARS-CoV-2 RNA (RT-PCR) 04/05/23 04/06/23 04/06/23 Unknown 00:07 01:04 WBC RBC Hgb Hct MCV MCH MCHC RDW Plt Count MPV Immature Gran % (Auto) Neut % (Auto) Lymph % (Auto) [place] % (Auto) Eos % (Auto) Baso % (Auto) Lymph # (Auto) [place] # (Auto) Eos # (Auto) Baso # (Auto) Abs Immat Gran (auto) Absolute Neuts (auto) Absolute Nucleated RBC Nucleated RBC % (auto) PT 18.8 H INR 1.5 H aPTT Heparin Protocol 31.0 L 70.8 VBG pH VBG pCO2 VBG pO2 VBG HCO3 VBG O2 Saturation VBG Base Excess Sodium Potassium Chloride Carbon Dioxide Anion Gap BUN Creatinine Estim Creat Clear Calc Estimated GFR Random Glucose Lactic Acid Lactic Acid F/U @ 2Hr 2.4 H* Lactic Acid F/U @ 4Hr Calcium Phosphorus Magnesium Total Bilirubin Direct Bilirubin AST ALT Alkaline Phosphatase Total Creatine Kinase Troponin I High Sens Total Protein Albumin Urine Color Urine Appearance Urine pH Ur Specific [place] Urine Protein Urine Glucose (UA) Urine Ketones Urine Blood Urine Nitrite Ur Leukocyte Esterase Urine RBC Urine WBC Ur Squamous Epith Cells Urine Bacteria Hyaline Casts Salicylates Acetaminophen Valproic Acid Influenza Type A (PCR) Influenza Type B (PCR) RSV RNA Qual (PCR) SARS-CoV-2 RNA (RT-PCR) 04/06/23 04/06/23 04/06/23 05:05 05:09 05:09 WBC 20.9 H RBC 4.05 L Hgb 12.7 Hct 38.0 MCV 93.8 MCH 31.4 MCHC 33.4 RDW 13.2 Plt Count 267 MPV 11.3 Immature Gran % (Auto) 0.8 H Neut % (Auto) 83.9 H Lymph % (Auto) 10.3 L [place] % (Auto) 4.8 Eos % (Auto) 0.0 Baso % (Auto) 0.2 Lymph # (Auto) 2.2 [place] # (Auto) 1.0 Eos # (Auto) 0.0 Baso # (Auto) 0.1 Abs Immat Gran (auto) 0.16 H Absolute Neuts (auto) 17.6 H Absolute Nucleated RBC 0.070 H Nucleated RBC % (auto) 0.3 H PT INR aPTT Heparin Protocol VBG pH 7.49 H VBG pCO2 32 VBG pO2 86 VBG HCO3 24 VBG O2 Saturation 97.0 VBG Base Excess 2.2 Sodium 134 L Potassium 4.7 Chloride 99 Carbon Dioxide 23 Anion Gap 17 BUN 33 H Creatinine 0.81 Estim Creat Clear Calc 68.2 Estimated GFR > 60 Random Glucose 117 H Lactic Acid Lactic Acid F/U @ 2Hr Lactic Acid F/U @ 4Hr Calcium 10.3 H Phosphorus 4.3 Magnesium 2.0 Total Bilirubin 0.5 Direct Bilirubin AST 670 H ALT 872 H Alkaline Phosphatase 39 Total Creatine Kinase Troponin I High Sens Total Protein 6.6 Albumin 3.8 Urine Color Urine Appearance Urine pH Ur Specific [place] Urine Protein Urine Glucose (UA) Urine Ketones Urine Blood Urine Nitrite Ur Leukocyte Esterase Urine RBC Urine WBC Ur Squamous Epith Cells Urine Bacteria Hyaline Casts Salicylates Acetaminophen Valproic Acid Influenza Type A (PCR) Influenza Type B (PCR) RSV RNA Qual (PCR) SARS-CoV-2 RNA (RT-PCR) 04/06/23 04/06/23 04/06/23 05:09 05:09 05:09 WBC 21.5 H RBC 4.12 L Hgb 12.8 Hct 37.8 MCV 91.7 MCH 31.1 MCHC 33.9 RDW 13.2 Plt Count 258 MPV 10.8 Immature Gran % (Auto) Neut % (Auto) Lymph % (Auto) [place] % (Auto) Eos % (Auto) Baso % (Auto) Lymph # (Auto) [place] # (Auto) Eos # (Auto) Baso # (Auto) Abs Immat Gran (auto) Absolute Neuts (auto) Absolute Nucleated RBC 0.050 H Nucleated RBC % (auto) 0.2 PT 18.1 H INR 1.5 H aPTT Heparin Protocol 67.7 VBG pH VBG pCO2 VBG pO2 VBG HCO3 VBG O2 Saturation VBG Base Excess Sodium Potassium Chloride Carbon Dioxide Anion Gap BUN Creatinine Estim Creat Clear Calc Estimated GFR Random Glucose Lactic Acid Lactic Acid F/U @ 2Hr Lactic Acid F/U @ 4Hr Calcium Phosphorus Magnesium Total Bilirubin Direct Bilirubin AST ALT Alkaline Phosphatase Total Creatine Kinase Troponin I High Sens 2285.0 H* Total Protein Albumin Urine Color Urine Appearance Urine pH Ur Specific [place] Urine Protein Urine Glucose (UA) Urine Ketones Urine Blood Urine Nitrite Ur Leukocyte Esterase Urine RBC Urine WBC Ur Squamous Epith Cells Urine Bacteria Hyaline Casts Salicylates Acetaminophen Valproic Acid Influenza Type A (PCR) Influenza Type B (PCR) RSV RNA Qual (PCR) SARS-CoV-2 RNA (RT-PCR) Microbiology Microbiology Results: Microbiology 04/05/23 10:01 Blood - Venous Blood Culture - Preliminary No growth after 24 hours. 04/05/23 09:43 Blood - Venous Blood Culture - Preliminary No growth after 24 hours. Progress Note: A&P Assessment and plan (1) Takotsubo cardiomyopathy: Status: Acute (2) Acute respiratory failure: Status: Acute (3) Seizure: Status: Acute (4) COPD (chronic obstructive pulmonary disease): Status: Acute (5) Enlarged RV (right ventricle): Status: Acute (6) Paroxysmal atrial flutter: Status: Acute (7) Ischemic hepatitis: Status: Acute (8) Acute renal failure: Status: Acute Plan Assessment: 63-year-old lady with underlying right ventricular dysfunction supplemental oxygen dependent COPD admitted with borderline cardiogenic shock and Takotsubo's physiology Plan: Neuro: No acute issues. underlying seizure disorder, continue on Divalproex. Cardiac: acute systolic heart failure on the background of known right ventricular dysfunction, likely secondary to Takotsubo's physiology. Cardiology service care appreciated. Heparin drip held secondary to hematuria. Pulmonary: Acute on chronic respiratory failure with hypoxia. CT angio chest with no evidence of pulmonary emboli. Minimum right basilar lung infiltrate is not consistent with clinically significant pneumonia. Underlying severe COPD. Renal: Acute renal failure secondary to forward flow on the background of newly noted reduced ejection fraction, improving. Non oliguric. Poor response to Lasix drip. Continue to monitor renal indices and urine output. Endo: No acute issues. GI: Transaminitis secondary to poor perfusion, improving. ID: No evidence of sepsis. Observed hypotension and poor end organ perfusion are secondary to cardiac dysfunction with underlying Takotsubo's physiology. Heme/Onc: No acute issues. Psych: No acute issues. Miscellaneous: No acute issues. Prophylaxis: pneumatic compression Diet: regular Critical care time spent: 45 minutes Quality Stroke Does the patient have a stroke diagnosis?: No VTE Prior VTE?: No VTE Risk Level:: Medical - moderate - high VTE Device Contraindication: N/A - Device Ordered VTE Drug Contraindication: Treatment Not Indicated
[2023-04-06] MEDS: Dronedarone HCl 400 MG TABLET PO (17:33)
[2023-04-06] MEDS: Divalproex Sodium 250 MG TABLET.DR PO (19:54)
[2023-04-06] MEDS: Nicotine 21 MG PATCH.TD24 TRANSDERMA (19:56)
[2023-04-06] MEDS: Baclofen 10 MG TABLET PO (20:14)
[2023-04-06] MEDS: Albuterol/Iprat 2.5/0.5MG 3 ML AMPUL.NEB INHALE (20:37)
[2023-04-06] MEDS: fentaNYL citrate/PF 100 MCG/2 ML VIAL 25 MCG IVPUSH (23:15)
[2023-04-07] VITALS (41 sets, daily range): BP systolic 0–210; BP diastolic 0–102; PULSE 0–170; RESP 13–45; TEMP 37.7–38.7; O2SAT 88–95; BMI 23.8
[2023-04-07] MEDS: fentaNYL citrate/PF 100 MCG/2 ML VIAL 25 MCG IVPUSH ×4 (02:42→14:35)
[2023-04-07] MEDS: Norepinephrine Bitartrate/D5W 8 MG/250 ML PLAST..BAG 7.84 MG IV (02:48)
[2023-04-07 05:36] LABS: VBG HCO3 23 mmol/L (22-26); VBG pCO2 30 mmHg; VBG pH 7.49 (7.32-7.43); VBG pO2 56 mmHg
[2023-04-07 05:41] LABS: Venous Blood Gas Refer to POC result
--- NOTE | 2023-04-07 06:03 | PC.NURSE ---
Addendum entered by Mesfin Chapin RN 04/07/23 06:47: passed 2nd larger soft brown bm on bedpan Original Note: care assumed 23:15...awake..alert..oriented x3....continues high-stanton cannula..sao2 goal 88-92% per icu contract analyst...hi-stanton cannula titrated from fio2 40% and 35 l/m to 60% and 50 l/m overnight to maintain sao2 988% or greater....fentanyl 25 mcg iv x2 doses for work of breathing...isabel 5-10 cc/hr dark beryl urine..icu contract analyst aware...levophed dri[p titrated per mar...passed small soft brown stool on bedpan...sinus tach hr 122-132...ocassional pac's and pvc's
[2023-04-07 06:26] LABS: PTT Heparin Drip 28.3 SEC (53-77.9)
[2023-04-07 06:30] LABS: Alanine Aminotransferase 1335 U/L (0-31); Albumin Level 3.7 g/dL (3.5-5.0); Alkaline Phosphatase 48 U/L (39-117); Anion Gap 17 (12-20); Aspartate Amino Transferase 890 U/L (5-31); Bilirubin Total 0.5 mg/dL (0.0-1.0); Blood Urea Nitrogen 30 mg/dL (9-16); Calcium 9.4 mg/dL (8.4-10.2); Carbon Dioxide 22 mmol/L (22-29); Chloride 94 mmol/L (96-108); Creatinine Clr Calc Pharmacy 64.3; Estimated Glomerular Filt Rate > 60; Glucose Random 121 mg/dL (60-115); Magnesium 2.2 mg/dL (1.6-2.6); Phosphorus 3.1 mg/dL (2.7-4.5); Sodium 128 mmol/L (135-145); Total Protein 6.5 g/dL (6.5-8.0)
[2023-04-07 06:33] LABS: Basophils Absolute Auto 0.1 X10*3/uL (0.0-0.2); Basophils Percent Auto 0.2 % (0-2); Eosinophils Absolute Auto 0.1 X10*3/uL (0.0-0.4); Eosinophils Percent Auto 0.5 % (0-4); Hematocrit 38.5 % (37.0-47.0); Hemoglobin 12.9 g/dl (12.0-16.0); Imm Gran Abs Auto 0.32 X10*3/uL (0.00-0.03); Imm Gran Pct Auto 1.3 % (0.0-0.4); Lymphocytes Absolute Auto 2.9 X10*3/uL (1.2-4.9); Lymphocytes Percent Auto 11.5 % (20-40); MANUAL DIFF FLAG SCAN; Mean Corpuscular HGB Conc 33.5 g/dl (31.0-35.0); Mean Corpuscular Volume 92.5 fL (80.0-98.0); Mean Platelet Volume 11.8 fL (9.4-12.3); Monocytes Absolute Auto 1.8 X10*3/uL (0.1-1.2); Monocytes Percent Auto 6.9 % (2-11); Neutrophils Absolute Auto 20.2 x10*3/uL (2.0-8.3); Neutrophils Percent Auto 79.6 % (45-73); Platelet Count 269 X10*3/uL (160-400); Red Blood Count 4.16 X10*6/uL (4.20-5.50); Red Cell Distribution Width 13.2 % (11.0-16.0); SCAN SMEAR FLAG 1; White Blood Count 25.4 X10*3/uL (4.8-10.8)
[2023-04-07 06:34] LABS: NRBC Pct Auto 1.3 /100WBC (0.0-0.2)
[2023-04-07 07:01] LABS: SLIDE REVIEW VERIFIED
[2023-04-07] MEDS: levoFLOXacin/D5W 750 MG/150 ML PIGGYBACK 100 MG IV (07:55)
[2023-04-07] MEDS: Lactulose 20 GM/30 ML SOLUTION 30 GM PO (07:56)
[2023-04-07] MEDS: Divalproex Sodium 250 MG TABLET.DR PO (07:56)
[2023-04-07] MEDS: Baclofen 10 MG TABLET PO (07:56)
[2023-04-07] MEDS: Dronedarone HCl 400 MG TABLET PO (07:56)
[2023-04-07] MEDS: Nicotine 21 MG PATCH.TD24 TRANSDERMA (07:56)
--- NOTE | 2023-04-07 09:07 | ECG_ITS ---
Test Reason : rhythm check Blood Pressure : / mmHG Vent. Rate : 129 BPM Atrial Rate : 129 BPM P-R Int : 170 ms QRS Dur : 114 ms QT Int : 278 ms P-R-T Axes : 087 165 061 degrees QTc Int : 407 ms Sinus tachycardia Possible Left atrial enlargement Indeterminate axis Low voltage QRS Cannot rule out Inferior infarct (cited on or before 17-APR-2005) Anterolateral infarct (cited on or before 06-APR-2004) Abnormal ECG When compared with ECG of 05-APR-2023 09:33, Premature supraventricular complexes are no longer Present Sinus tachycardia present Referred By: Guilherme Loera Electronically Signed By:Marco A Harris
[2023-04-07] MEDS: Digoxin 0.5 MG/2 ML AMPUL 0.25 MG IVPUSH (09:39)
--- NOTE | 2023-04-07 09:41 | P.PNCA_ITS ---
Subjective Subjective Date of Service: 04/07/23 Interval history: Seen and examined at bedside. Complaining of shortness of breath and visibly tachypneic. She has sinus tachycardia on telemetry confirmed by EKG. Physical Exam Vital Signs: Last Vital Signs Temp 99.9 F 04/07/23 09:00 Pulse 117 H 04/07/23 09:00 Resp 27 H 04/07/23 09:00 BP 111/67 04/07/23 09:00 Pulse Ox 91 L 04/07/23 09:00 O2 Del Method High Flow Nasal Cannula 04/07/23 09:00 O2 Flow Rate 50 04/07/23 09:00 FiO2 60 04/07/23 09:00 Oxygen Flow Rate 10 04/05/23 09:21 BMI result Body Mass Index 23.8 GENERAL APPEARANCE: Distressed, short of breath, on high-flow oxygen. NECK: no carotid bruit, + jugular venous distention. SKIN: no suspicious lesions, warm and dry. HEART: no murmurs, regular rate and rhythm. LUNGS: Diminished breath sounds bilaterally. ABDOMEN: soft, nontender. EXTREMITIES: no edema. PERIPHERAL PULSES: equal. NEUROLOGIC: No gross deficits, AAO X 3 Objective Labs and Meds 04/07/23 05:25 04/07/23 05:25 Lab results: Laboratory Results - last 24 hr 04/07/23 04/07/23 04/07/23 05:25 05:25 05:26 WBC 25.4 H RBC 4.16 L Hgb 12.9 Hct 38.5 MCV 92.5 MCH 31.0 MCHC 33.5 RDW 13.2 Plt Count 269 MPV 11.8 Immature Gran % (Auto) 1.3 H Neut % (Auto) 79.6 H Lymph % (Auto) 11.5 L [place] % (Auto) 6.9 Eos % (Auto) 0.5 Baso % (Auto) 0.2 Lymph # (Auto) 2.9 [place] # (Auto) 1.8 H Eos # (Auto) 0.1 Baso # (Auto) 0.1 Abs Immat Gran (auto) 0.32 H Absolute Neuts (auto) 20.2 H Absolute Nucleated RBC 0.330 H Nucleated RBC % (auto) 1.3 H Smear Tech's Comments VERIFIED aPTT Heparin Protocol VBG pH 7.49 H VBG pCO2 30 VBG pO2 56 VBG HCO3 23 VBG O2 Saturation 83.0 VBG Base Excess 1.0 Sodium 128 L Potassium 5.0 Chloride 94 L Carbon Dioxide 22 Anion Gap 17 BUN 30 H Creatinine 0.86 Estim Creat Clear Calc 64.3 Estimated GFR > 60 Random Glucose 121 H Calcium 9.4 D Phosphorus 3.1 Magnesium 2.2 Total Bilirubin 0.5 AST 890 H ALT 1335 H Alkaline Phosphatase 48 Total Protein 6.5 Albumin 3.7 04/07/23 05:29 WBC RBC Hgb Hct MCV MCH MCHC RDW Plt Count MPV Immature Gran % (Auto) Neut % (Auto) Lymph % (Auto) [place] % (Auto) Eos % (Auto) Baso % (Auto) Lymph # (Auto) [place] # (Auto) Eos # (Auto) Baso # (Auto) Abs Immat Gran (auto) Absolute Neuts (auto) Absolute Nucleated RBC Nucleated RBC % (auto) Smear Tech's Comments aPTT Heparin Protocol 28.3 L D VBG pH VBG pCO2 VBG pO2 VBG HCO3 VBG O2 Saturation VBG Base Excess Sodium Potassium Chloride Carbon Dioxide Anion Gap BUN Creatinine Estim Creat Clear Calc Estimated GFR Random Glucose Calcium Phosphorus Magnesium Total Bilirubin AST ALT Alkaline Phosphatase Total Protein Albumin Imaging Radiologist's impression: Impressions Chest X-Ray 04/07/23 08:06 IMPRESSION: Increased markings at the lung bases questionable for bronchial wall thickening or small pneumonia. Progress Note: A&P Assessment and plan (1) Takotsubo cardiomyopathy: Status: Acute (2) Acute respiratory failure: Status: Acute Plan [age] year female with background of cor pulmonale who presented with fall and then presented again with worsening shortness of breath and hypoxia. She was noticed to have biventricular takotsubo cardiomyopathy. She has been more hypoxic and requiring high-flow oxygen. CT scan raise some concern for bronchopneumonia but was smal and did not explain the degree of hypoxia but has been on antibiotics at this stage. Continues to be more short of breath and tachypneic at this point. She is tachycardic but with EKG showing sinus tachycardia. Given LV dysfunction and concern for heart failure also, she cannot get multiple medications including beta-zahira, diltiazem, verapamil or Multaq at this stage. Given RV dysfunction digoxin is a possibility to support RV but currently she does not have arrhythmia and has sinus tachycardia likely due to underlying respiratory distress. She will get x-ray to see if there is any obvious explana tion for this. She had advanced lung issues as well as RV dysfunction to start with and has severe biventricular takotsubo at this point. Prognosis is guarded. Thank you for allowing me to participate in the care of your patient. Please feel free to contact me if you have any questions. Time Spent With Patient Time: Total time managing care of this patient today ____ minutes. Progress Note: Quality Stroke Does the patient have a stroke diagnosis?: No Procedures Date of Service Date of Service: 04/07/23
[2023-04-07 10:03] LABS: Troponin-I High Sensitivity 1959.5 ng/L (<3.5-17.0)
[2023-04-07 10:04] LABS: B Type Natriuretic Peptide 8679 pg/mL (<100)
--- NOTE | 2023-04-07 10:13 | P.PNCC_ITS ---
Subjective Subjective Date of Service: 04/07/23 Interval History: 63-year-old lady with underlying history COPD 3 L supplemental oxygen dependent, paroxysmal AFib, right ventricular dysfunction admitted on 04/05/2023 with dyspnea for several days. On ER evaluation patient with significant hypoxemia requiring high-flow nasal cannula 50% to maintain normal oximetry. Elevated transaminases, lactate, troponin, and BNP. On bedside echocardiogram newly reduced ejection fraction at 10-15% with Takotsubo physiology. Patient started on heparin drip and admitted to the intensive care unit for close monitoring. Now requiring pressor support. Slow decline in FiO2 requirements overnight. Critical Care Time (minutes): 45 Physical Exam Vital Signs: Vital Signs: Last Vital Signs Temp 99.9 F 04/07/23 09:00 Pulse 117 H 04/07/23 09:00 Resp 27 H 04/07/23 09:00 BP 111/67 04/07/23 09:00 Pulse Ox 91 L 04/07/23 09:00 O2 Del Method High Flow Nasal C annula 04/07/23 09:00 O2 Flow Rate 50 04/07/23 09:00 FiO2 60 04/07/23 09:00 Oxygen Flow Rate 10 04/05/23 09:21 BMI result Body Mass Index 23.8 Const: General: no acute distress, alert and awake Eyes: Sclerae: sclerae normal EOM: EOMs intact bilaterally Neck: Neck: Yes no lymphadenopathy, Yes trachea midline and Yes supple Resp: Effort & Inspection: normal respiratory effort and no respiratory distress Auscultation: crackles (Mild bilateral) Cardio: Rate: tachycardic Rhythm: regular rhythm Heart sounds: no gallops, no murmurs and no rubs GI: Palpation (GI): Soft to palpation and Other GI palpation findings present ( Nontender) Auscultation: normal bowel sounds Extrem: General: Yes no pedal edema, No clubbing and No cyanosis Objective Data Labs 04/07/23 05:25 04/07/23 05:25 Labs: Laboratory Results - last 24 hr 04/07/23 04/07/23 04/07/23 05:25 05:25 05:26 WBC 25.4 H RBC 4.16 L Hgb 12.9 Hct 38.5 MCV 92.5 MCH 31.0 MCHC 33.5 RDW 13.2 Plt Count 269 MPV 11.8 Immature Gran % (Auto) 1.3 H Neut % (Auto) 79.6 H Lymph % (Auto) 11.5 L [place] % (Auto) 6.9 Eos % (Auto) 0.5 Baso % (Auto) 0.2 Lymph # (Auto) 2.9 [place] # (Auto) 1.8 H Eos # (Auto) 0.1 Baso # (Auto) 0.1 Abs Immat Gran (auto) 0.32 H Absolute Neuts (auto) 20.2 H Absolute Nucleated RBC 0.330 H Nucleated RBC % (auto) 1.3 H Smear Tech's Comments VERIFIED aPTT Heparin Protocol VBG pH 7.49 H VBG pCO2 30 VBG pO2 56 VBG HCO3 23 VBG O2 Saturation 83.0 VBG Base Excess 1.0 Sodium 128 L Potassium 5.0 Chloride 94 L Carbon Dioxide 22 Anion Gap 17 BUN 30 H Creatinine 0.86 Estim Creat Clear Calc 64.3 Estimated GFR > 60 Random Glucose 121 H Calcium 9.4 D Phosphorus 3.1 Magnesium 2.2 Total Bilirubin 0.5 AST 890 H ALT 1335 H Alkaline Phosphatase 48 Troponin I High Sens B-Natriuretic Peptide Total Protein 6.5 Albumin 3.7 04/07/23 04/07/23 04/07/23 05:29 07:48 07:48 WBC RBC Hgb Hct MCV MCH MCHC RDW Plt Count MPV Immature Gran % (Auto) Neut % (Auto) Lymph % (Auto) [place] % (Auto) Eos % (Auto) Baso % (Auto) Lymph # (Auto) [place] # (Auto) Eos # (Auto) Baso # (Auto) Abs Immat Gran (auto) Absolute Neuts (auto) Absolute Nucleated RBC Nucleated RBC % (auto) Smear Tech's Comments aPTT Heparin Protocol 28.3 L D VBG pH VBG pCO2 VBG pO2 VBG HCO3 VBG O2 Saturation VBG Base Excess Sodium Potassium Chloride Carbon Dioxide Anion Gap BUN Creatinine Estim Creat Clear Calc Estimated GFR Random Glucose Calcium Phosphorus Magnesium Total Bilirubin AST ALT Alkaline Phosphatase Troponin I High Sens 1959.5 H* B-Natriuretic Peptide 8679 H Total Protein Albumin Microbiology Microbiology Results: Microbiology 04/05/23 10:01 Blood - Venous Blood Culture - Preliminary No growth after 24 hours. 04/05/23 09:43 Blood - Venous Blood Culture - Preliminary No growth after 24 hours. Progress Note: A&P Assessment and plan (1) Biventricular failure: Status: Acute (2) Acute renal failure: Status: Acute (3) Ischemic hepatitis: Status: Acute (4) Takotsubo cardiomyopathy: Status: Acute (5) Acute respiratory failure: Status: Acute (6) COPD (chronic obstructive pulmonary disease): Status: Acute (7) Paroxysmal atrial flutter: Status: Acute Plan Assessment: 63-year-old lady with underlying right ventricular dysfunction supplemental oxygen dependent COPD admitted with borderline cardiogenic shock and biventricular Takotsubo's physiology Plan: Neuro: No acute issues. underlying seizure disorder, continue on Divalproex. Cardiac: Acute systolic heart failure on the background of known right ventricular dysfunction, likely secondary to biventricular Takotsubo's physiology. Cardiology service care appreciated. Heparin drip held secondary to hematuria. Dobutamine support as tolerated. Pulmonary: Acute on chronic respiratory failure with hypoxia. CT angio chest with no evidence of pulmonary emboli. Minimum right basilar lung infiltrate is not consistent with clinically significant pneumonia. Underlying severe COPD. Likely significant component pulmonary edema. Will re-attempt diuresis with dobutamine support. Renal: Acute renal failure secondary to forward flow on the background of newly noted reduced ejection fraction, improving. Non oliguric. Poor response to Lasix drip. Continue to monitor renal indices and urine output. Endo: No acute issues. GI: Transaminitis secondary to poor perfusion and hepatic congestion. ID: No evidence of sepsis. Observed hypotension and poor end organ perfusion are secondary to cardiac dysfunction with underlying Takotsubo's physiology. Heme/Onc: No acute issues. Psych: No acute issues. Miscellaneous: No acute issues. Prophylaxis: pneumatic compression Diet: regular Critical care time spent: 45 minutes Quality Stroke Does the patient have a stroke diagnosis?: No VTE Prior VTE?: No VTE Risk Level:: Medical - moderate - high VTE Device Contraindication: N/A - Device Ordered VTE Drug Contraindication: Treatment Not Indicated
[2023-04-07] MEDS: DOBUTamine HCL/D5W 500 MG/250 ML IV.SOLN 10.34 MG IVCONT (10:48)
[2023-04-07] MEDS: Bumetanide 1 MG/4 ML VIAL IVPUSH (10:49)
[2023-04-07] MEDS: Amiodarone/Dextrose 150 MG/100 ML PLAST..BAG 600 MG IV (12:28)
[2023-04-07] MEDS: Amiodarone HCL 900 MG in 0.9 % Sodium Chloride 500 ML 34.53 MG IVCONT (12:31)
[2023-04-07] MEDS: fentaNYL citrate/PF 100 MCG/2 ML VIAL IVPUSH (15:25)
[2023-04-07] MEDS: fentaNYL citrate/NS 1,000 MCG/100 ML PLAST..BAG 10 MCG IVCONT (15:32)
--- NOTE | 2023-04-07 16:59 | PM.CCN ---
Critical Care Event Note Summary Date of Service: 04/07/23 Code activated: No Narrative: Patient with poor tolerance of dobutamine, switched back to levophed. Also, with development of AFlutter to 190's, loaded with amiodarone with improvement in rate. However, with progressive decline in respiratory status and escalating vasopressor requirements. Overal poor clinical prognosis for meaningful recovery discussed with patient's family and decision has been reached to switch goals of care to palliation. Code status changed to comfort measures. Now on fentanyl drip, PRN fentanyl, and PRN Versed. Critical Care Time (minutes): 0
[2023-04-07] MEDS: Midazolam HCl/PF 2 MG/2 ML VIAL IVPUSH (17:02)
--- NOTE | 2023-04-07 18:38 | PM.EVENT ---
Event Note Date of Service: 04/07/23 Event Note: The patient on 06:05 PM 04/07/2023. Support offered to the family at bedside. Time Spent With Patient Time: Total time managing care of this patient today ____ minutes.
--- NOTE | 2023-04-08 10:54 | PM.DDS ---
Discharge Sum: Prov Provider Primary care physician: Miguelito Bearden MD Consults: 04/05/23 10:41 Consult to Cardiology Stat Consulting Provider: [facility] Reason for consultation: Elevated Trop, SOB Discharge Sum: Diag PCOD Cause of : Cardiogenic shock Contributing Factors (1) Biventricular failure: (2) Takotsubo cardiomyopathy: (3) Acute respiratory failure: (4) Acute renal failure: (5) Ischemic hepatitis: (6) COPD (chronic obstructive pulmonary disease): (7) Paroxysmal atrial flutter: Discharge Sum: Summary Date and Time Date of admission: 04/05/23 17:11 Date of : 04/08/23 Time of : 18:05 Summary Details: 63-year-old lady with underlying history COPD 3 L supplemental oxygen dependent, paroxysmal AFib, right ventricular dysfunction admitted on 04/05/2023 with dyspnea for several days. On ER evaluation patient with significant hypoxemia requiring high-flow nasal cannula 50% to maintain normal oximetry. Elevated transaminases, lactate, troponin, and BNP. On bedside echocardiogram newly reduced ejection fraction at 10-15% with biventricular Takotsubo physiology. Patient evaluated by Cardiology service, started on heparin drip, and admitted to the intensive care unit for close monitoring. Hospital course significant for increasing pressor and FiO2 support. On 04/07/2023 patient with poor tolerance of dobutamine, switched back to levophed. Also, with development of AFlutter to 190's, loaded with amiodarone with improvement in rate. However, with progressive decline in respiratory status and escalating vasopressor requirements. Overal poor clinical prognosis for meaningful recovery discussed with patient's family and decision has been reached to switch goals of care to palliation on 04/07/2023 at 5p.m. Code status changed to comfort measures. Patient started on fentanyl drip, PRN fentanyl, and PRN Versed and passed peacefully at 18:05 on 04/07/2023 with family at the bedside. Additional Data Attending physician: Guilherme Loera MD
== END 2023-04-07 19:16 | disposition expired | DRG 314 ==
LOC: HO.ED 15:05 → HO.EDOVER 17:27 → HO.ICU 17:44
PROVIDERS: Internal Medicine; Registered Nurse Community Health; Admitting Provider Internal Medicine Pulmonary Disease; Emergency Provider Student in an Organized Health Care Education/Training Program; PCP Internal Medicine; Visit Provider Internal Medicine Pulmonary Disease
DX: I51.81 Takotsubo syndrome (principal); J96.21 Acute and chronic respiratory failure with hypoxia; I48.92 Unspecified atrial flutter; J44.1 Chronic obstructive pulmonary disease with (acute) exacerbation; N17.9 Acute kidney failure, unspecified; R57.0 Cardiogenic shock; I50.82 Biventricular heart failure; Z99.81 Dependence on supplemental oxygen; I48.0 Paroxysmal atrial fibrillation; Z51.5 Encounter for palliative care; Z20.822 Contact with and (suspected) exposure to COVID-19; Z87.891 Personal history of nicotine dependence; Z79.01 Long term (current) use of anticoagulants; Z79.899 Other long term (current) drug therapy
CPT/HCPCS: 0241U; 36415; 70450; 71045; 71260; 72125; 74177; 80048; 80053; 80076; 80143; 80164; 80179; 81001; 82550; 82803; 83605; 83735; 83880; 84100; 84484; 85025; 85027; 85610; 85730; 87040; 93005; 93306; 94640; 99284; 99285; C1758; J0282; J0283; J1160; J1250; J1643; J1940; J1956; J2250; J2930; J3010; Q9957; Q9967

== ENCOUNTER → 2023-04-05 09:54 | Outpatient (BNV) | payer MEDICARE, MEDICAID, SELFPAY | PROVIDERS: Emergency Provider Student in an Organized Health Care Education/Training Program; Visit Provider Internal Medicine Cardiovascular Disease | DX: I51.81 Takotsubo syndrome (principal); J96.00 Acute respiratory failure, unspecified whether with hypoxia or hypercapnia | CPT/HCPCS: 93010; 93306; 99223; 99232; 99233 ==

== ENCOUNTER 2023-04-05 17:11 | Outpatient (BNV) | payer MEDICARE, MEDICAID, SELFPAY | END 2023-04-07 09:07 | PROVIDERS: Admitting Provider Internal Medicine Pulmonary Disease; Emergency Provider Student in an Organized Health Care Education/Training Program; PCP Internal Medicine; Visit Provider Internal Medicine Cardiovascular Disease | DX: R00.0 Tachycardia, unspecified (principal); R94.31 Abnormal electrocardiogram [ECG] [EKG] | CPT/HCPCS: 93010 ==

== ENCOUNTER → 2023-04-05 17:11 | Outpatient (BNV) | payer MEDICARE, MEDICAID, SELFPAY | PROVIDERS: Admitting Provider Internal Medicine Pulmonary Disease; Emergency Provider Student in an Organized Health Care Education/Training Program; PCP Internal Medicine; Visit Provider Internal Medicine Pulmonary Disease | DX: I50.82 Biventricular heart failure (principal); I51.81 Takotsubo syndrome; J96.00 Acute respiratory failure, unspecified whether with hypoxia or hypercapnia; N17.9 Acute kidney failure, unspecified; K72.00 Acute and subacute hepatic failure without coma; J44.9 Chronic obstructive pulmonary disease, unspecified; I48.92 Unspecified atrial flutter | CPT/HCPCS: 99238; 99291; 99499 ==